=== PATIENT | male | born 1955 ===

== ENCOUNTER 2016-11-28 07:52 | Emergency (ER) | payer OTHER ==
[2016-11-28 07:57] VITALS: BMI 34.4
--- NOTE | 2016-11-28 08:31 | ED PDOC ---
HPI: CCC, URI, Sore Throat Time Seen by Provider: 11/28/16 07:53 Chief Complaint (Nursing): ENT Problem Chief Complaint (Provider): Cough History Per: Patient History/Exam Limitations: no limitations Onset/Duration Of Symptoms: Days (x6) Current Symptoms Are (Timing): Still Present Associated Symptoms: Sore Throat, Sputum Additional Complaint(s): Adonis is a 61 y/o male who presents to the ED complaining of a productive cough with associated sore throat, for the past 6 days. No fever, chest pain, or shortness of breath. Cough is productive of green sputum. PMD: John Alegria Past Medical History Reviewed: Historical Data, Nursing Documentation, Vital Signs Vital Signs: Last Vital Signs Temp 98.2 F 11/28/16 12:51 Pulse 89 11/28/16 12:51 Resp 17 11/28/16 12:51 BP 135/76 11/28/16 12:51 Pulse Ox 96 11/28/16 12:51 - Medical History PMH: Anxiety, Diabetes, HTN Denies: Hepatitis, HIV, Seizures, Sexually Transmitted Disease - Surgical History Surgical History: Appendectomy - Family History Family History: States: Unknown Family Hx - Social History Current smoker - smoking cessation education provided: Yes Alcohol: None Drugs: Denies - Immunization History Hx Tetanus Toxoid Vaccination: No Hx Influenza Vaccination: No Hx Pneumococcal Vaccination: No - Home Medications Home Medications: Ambulatory Orders Medication Instructions Recorded amLODIPine [Norvasc] 5 mg PO DAILY 02/15/16 clonazePAM [clonAZEPAM] 0.5 mg PO TID 02/15/16 Insulin Glargine, Recombina 40 unit SC BID #20 ml 02/26/16 [Lantus] busPIRone [Buspar] 5 mg PO BID #20 tab 02/26/16 Insulin Aspart [Novolog] 10 unit SC BID #1 bottle 03/21/16 Insulin Glargine, Recombina 40 unit SQ Q12 #1 bottle 03/21/16 [Lantus] Lancets 1 each MC TID PRN #90 each 03/21/16 Syring-Needl,Disp,Insul,0.3 ml 1 each MC TID #100 disp.syrin 03/21/16 [Advocate Syringes] amLODIPine [Norvasc] 5 mg PO DAILY #30 tab 03/21/16 levoFLOXacin [Levaquin] 750 mg PO DAILY #5 tab 11/28/16 - Allergies Allergies/Adverse Reactions: Allergies Allergy/AdvReac Type Severity Reaction Status Date / Time No Known Allergies Allergy Verified 02/26/16 19:11 Review of Systems ROS Statement: Except As Marked, All Systems Reviewed And Found Negative Constitutional: Negative for: Fever ENT: Positive for: Throat Pain Cardiovascular: Negative for: Chest Pain Respiratory: Positive for: Cough, Sputum. Negative for: Shortness of Breath Physical Exam - Reviewed Nursing Documentation Reviewed: Yes Vital Signs Reviewed: Yes - Physical Exam Appears: Positive for: Non-toxic, No Acute Distress Head Exam: Positive for: ATRAUMATIC, NORMAL INSPECTION, NORMOCEPHALIC Skin: Positive for: Normal Color, Warm, Dry Eye Exam: Positive for: EOMI, Normal appearance, PERRL ENT: Positive for: Pharynx Is (clear), Other (Uvula midline). Negative for: Tonsillar Exudate Neck: Positive for: Normal, Painless ROM, Supple Cardiovascular/Chest: Positive for: Regular Rate, Rhythm. Negative for: Murmur Respiratory: Positive for: Normal Breath Sounds. Negative for: Accessory Muscle Use, Respiratory Distress Gastrointestinal/Abdominal: Positive for: Normal Exam, Soft. Negative for: Tenderness Extremity: Positive for: Normal ROM. Negative for: Pedal Edema, Deformity Neurologic/Psych: Positive for: Alert, Oriented, Other (Speaking full sentences ) - Laboratory Results Result Diagrams: 11/28/16 09:00 11/28/16 09:00 - ECG O2 Sat by Pulse Oximetry: 97 (RA) Pulse Ox Interpretation: Normal Medical Decision Making Medical Decision Making: Time: 08:22 Initial Plan: --Accucheck --Chest x-ray Finger stick is 341. Time: 08:31 --CBC w/ differentials --CMP --Urinalysis --Urine dipstick --EKG --VBG shock panel --Started on sodium chloride IV 1000 ml at 1000 mls/hr Time: 9:14 Chest x-ray: FINDINGS: LUNGS: There is mild patchy subtle alveolar density seen in the left lower lobe. Small pneumonia is not excluded. Minimal volume loss is seen at the right lung base. No other infiltrates are seen. Trachea is midline. PLEURA: No significant pleural effusion identified. No pneumothorax apparent. CARDIOVASCULAR: Normal. OSSEOUS STRUCTURES: No significant abnormalities. VISUALIZED UPPER ABDOMEN: Normal. OTHER FINDINGS: None. IMPRESSION: Minor patchy infiltrate at the left lung base suspicious for small pneumonia versus mild subsegmental atelectasis. Time: 9:59 --Given 6 units Insulin IV Time: 10:07 --Started IV Zithromax and Rocephin Time: 10:33 --Added blood culture --Patient given Motrin, 600 mg PO Time: 11:39 Clinical Impression: Pneumonia, hyperglycemia Upon provider reevaluation patient is medically stable, and requires no further treatment in the ED at this time. Patient will be discharged with Rx for Levaquin. Counseling was provided and all questions were answered regarding diagnosis and need for follow up with PMD in 2 days. There is agreement to discharge plan. Return if symptoms persist or worsen. Scribe Attestation: Documented by Stephany Levin, acting as a scribe for Mini Villar MD Provider Scribe Attestation: All medical record entries made by the Scribe were at my direction and personally dictated by me. I have reviewed the chart and agree that the record accurately reflects my personal performance of the history, physical exam, medical decision making, and the department course for this patient. I have also personally directed, reviewed, and agree with the discharge instructions and disposition. Disposition - Clinical Impression Clinical Impression: Pneumonia, Hyperglycemia - Patient ED Disposition Is Patient to be Admitted: No Counseled Patient/Family Regarding: Studies Performed, Diagnosis, Need For Followup, Rx Given - Disposition Disposition: Routine/Home Disposition Time: 11:39 Condition: STABLE Additional Instructions: FOLLOW-UP WITH PMD WITHIN 2 DAYS FOR REEVALUATION. Prescriptions: levoFLOXacin [Levaquin] 750 mg PO DAILY #5 tab Instructions: Pneumonia (ED), Diabetic Hyperglycemia (ED) Forms: [employer] (Haitian)
[2016-11-28] MEDS ORDERED: Sodium Chloride 0.9% 1,000 ML IV STA (08:32)
[2016-11-28 09:08] LABS: VENOUS BLOOD GAS BASE EXCESS 2.4 mmol/L (0.0-2.0); VENOUS BLOOD GAS PCO2 48 mmHg (40-60); VENOUS BLOOD PH 7.38 (7.32-7.43)
--- NOTE | 2016-11-28 09:16 | RAD ---
HISTORY: Cough COMPARISON: No prior. TECHNIQUE: Chest PA and lateral FINDINGS: LUNGS: There is mild patchy subtle alveolar density seen in the left lower lobe. Small pneumonia is not excluded. Minimal volume loss is seen at the right lung base. No other infiltrates are seen. Trachea is midline. PLEURA: No significant pleural effusion identified. No pneumothorax apparent. CARDIOVASCULAR: Normal. OSSEOUS STRUCTURES: No significant abnormalities. VISUALIZED UPPER ABDOMEN: Normal. OTHER FINDINGS: None. IMPRESSION: Minor patchy infiltrate at the left lung base suspicious for small pneumonia versus mild subsegmental atelectasis.
[2016-11-28 09:49] LABS: BASO % 0.3 % (0.0-2.0); EOS # 0.2 K/uL (0.0-0.7); EOS % 2.3 % (0.0-4.0); HEMATOCRIT 40.4 % (35.0-51.0); LYMPH # 1.4 K/uL (1.0-4.3); LYMPH % 15.4 % (20.0-40.0); MEAN CELL VOLUME 89.2 fl (80.0-94.0); MEAN CORPUSCULAR HEMOGLOBIN 30.1 pg (27.0-31.0); MEAN CORPUSCULAR HGB CONC 33.7 g/dL (33.0-37.0); MEAN PLATELET VOLUME 8.2 fl (7.2-11.7); MONO # 0.7 K/uL (0.0-0.8); MONO % 7.7 % (0.0-10.0); NEUT # 6.9 K/uL (1.8-7.0); NEUT % 74.3 % (50.0-75.0); NRBC % 0.1 % (0.0-0.0); RED CELL DISTRIBUTION WIDTH 13.8 % (11.5-14.5); WHITE BLOOD COUNT 9.2 K/uL (4.8-10.8)
[2016-11-28 09:53] LABS: RBC URINE 2 /hpf (0-3); URINE BILIRUBIN NEGATIVE (NEGATIVE); URINE BLOOD NEGATIVE (NEGATIVE); URINE COLOR YELLOW (YELLOW); URINE GLUCOSE (UA) >=500 mg/dL (Normal); URINE KETONE TRACE mg/dL (NEGATIVE); URINE LEUKOCYTE ESTERASE NEG Leu/uL (Negative); URINE PROTEIN NEGATIVE (NEGATIVE); URINE UROBILINOGEN 0.2-1.0 mg/dL (0.2-1.0); WBC URINE < 1 /hpf (0-5)
[2016-11-28 09:54] LABS: ALB/GLOB RATIO 1.4 (1.0-2.1); ALKALINE PHOSPHATASE 86 U/L (38-126); ALT/SGPT 29 U/L (21-72); AST/SGOT 25 U/L (17-59); BILIRUBIN,TOTAL 0.3 mg/dl (0.2-1.3); BLOOD UREA NITROGEN 22 mg/dl (9-20); CARBON DIOXIDE 25 mmol/L (22-30); CHLORIDE 102 mmol/L (98-107); GFR AFRICAN-AMERICAN > 60; GLUCOSE,RANDOM 335 mg/dL (75-110); POTASSIUM 4.7 MMOL/L (3.6-5.0); SODIUM 138 mmol/l (132-148); TOTAL PROTEIN 6.4 G/DL (6.3-8.2)
[2016-11-28] MEDS ORDERED: Insulin Regular 100 units/ml IV STA (09:59)
[2016-11-28] MEDS ORDERED: Azithromycin 500 MG in Sodium Chloride 0.9% 250 ML IVPB STA (10:06)
[2016-11-28] MEDS ORDERED: cefTRIAXone (Rocephin) 1 gm Inj ONE (10:16)
[2016-11-28 12:53] VITALS: BP 135/76; PULSE 89; RESP 17; TEMP 98.2
[2016-11-28 15:15] VITALS: O2SAT 97
--- NOTE | 2016-11-29 10:46 | CARD ---
APPROVED REPORT EKG Measurement Heart [id number] <Conclusion> Normal sinus rhythm Normal ECG
== END 2016-11-28 12:53 | disposition home or self-care (01) ==
LOC: H.ER 07:52
DX: J10.1 Influenza due to other identified influenza virus with other respiratory manifestations (principal); E11.65 Type 2 diabetes mellitus with hyperglycemia
CPT/HCPCS: 71020; 80053; 81003; 82803; 82948; 85025; 87040; 93005; 96365; 99283; J0456; J0696; J7040; J7050

== ENCOUNTER 2016-12-10 04:50 | Emergency (ER) | payer OTHER ==
[2016-12-10 04:51] VITALS: BMI 34.4
[2016-12-10 05:05] VITALS: BP 124/70; PULSE 94; RESP 16; TEMP 98.9; O2SAT 98
[2016-12-10] MEDS ORDERED: Albuterol-Ipratrop 3 mg / 0.5 (3 ml) UD IH STA (05:12)
--- NOTE | 2016-12-10 05:15 | ED PDOC ---
HPI: CCC, URI, Sore Throat Time Seen by Provider: 12/10/16 05:05 Chief Complaint (Nursing): Headache Chief Complaint (Provider): cold symptoms History Per: Patient History/Exam Limitations: no limitations Onset/Duration Of Symptoms: Days (8 weeks), Waxing/Waning Current Symptoms Are (Timing): Still Present Location Of Pain: Throat, Sinus/es Associated Symptoms: Sore Throat, Cough, Sinus Drainage, Nasal Congestion Additional History Per: Patient Additional Complaint(s): 61 y/o male history of diabetes, hypertension, anxiety presents with cold- symptoms x 8 weeks. Patient notes sinus headache/facial pressure (worse when leaning forward), nasal congestion, sore throat, and cough; states he was seen here for same 2 weeks ago and prescribed antibiotics but did not get better. Denies fever, dizziness, extremity numbness/weakness, chest pain, shortness of breath, palpitations, vomiting/diarrhea, recent travel, sick contacts. Past Medical History Reviewed: Historical Data, Nursing Documentation, Vital Signs Vital Signs: Last Vital Signs Temp 98.9 F 12/10/16 05:03 Pulse 94 H 12/10/16 05:03 Resp 16 12/10/16 05:03 BP 124/70 12/10/16 05:03 Pulse Ox 98 12/10/16 05:19 - Medical History PMH: Anxiety, Diabetes, HTN Denies: Hepatitis, HIV, Seizures, Sexually Transmitted Disease - Surgical History Surgical History: Appendectomy - Family History Family History: States: Unknown Family Hx - Immunization History Hx Tetanus Toxoid Vaccination: No Hx Influenza Vaccination: No Hx Pneumococcal Vaccination: No - Home Medications Home Medications: Ambulatory Orders Medication Instructions Recorded amLODIPine [Norvasc] 5 mg PO DAILY 02/15/16 clonazePAM [clonAZEPAM] 0.5 mg PO TID 02/15/16 Insulin Glargine, Recombina 40 unit SC BID #20 ml 02/26/16 [Lantus] busPIRone [Buspar] 5 mg PO BID #20 tab 02/26/16 Insulin Aspart [Novolog] 10 unit SC BID #1 bottle 03/21/16 Insulin Glargine, Recombina 40 unit SQ Q12 #1 bottle 03/21/16 [Lantus] Lancets 1 each MC TID PRN #90 each 03/21/16 Syring-Needl,Disp,Insul,0.3 ml 1 each MC TID #100 disp.syrin 03/21/16 [Advocate Syringes] amLODIPine [Norvasc] 5 mg PO DAILY #30 tab 03/21/16 levoFLOXacin [Levaquin] 750 mg PO DAILY #5 tab 11/28/16 Albuterol HFA [Ventolin HFA 90 1 puff IH Q4 PRN #1 inh 12/10/16 mcg/actuation (8 g)] Amoxicillin/Clavulanate [Augmentin 1 tab PO Q12 #14 tab 12/10/16 875 MG-125 MG] Fluticasone Nasal [Flonase] 1 actuation NS BID #1 bottle 12/10/16 predniSONE [Prednisone] 60 mg PO DAILY #12 tab 12/10/16 - Allergies Allergies/Adverse Reactions: Allergies Allergy/AdvReac Type Severity Reaction Status Date / Time No Known Allergies Allergy Verified 12/10/16 05:03 Review of Systems ROS Statement: Except As Marked, All Systems Reviewed And Found Negative ENT: Positive for: Nose Congestion, Throat Pain Physical Exam - Reviewed Nursing Documentation Reviewed: Yes Vital Signs Reviewed: Yes - Physical Exam Appears: Positive for: Well, Non-toxic, No Acute Distress Head Exam: Positive for: ATRAUMATIC, NORMAL INSPECTION, NORMOCEPHALIC Skin: Positive for: Normal Color Eye Exam: Positive for: Normal appearance ENT: Positive for: Sinus Pain/Drainage (bilateral ethmoid, maxillary), Nasal Congestion, Pharyngeal Erythema. Negative for: Tonsillar Exudate, Tonsillar Swelling Cardiovascular/Chest: Positive for: Regular Rate, Rhythm Respiratory: Positive for: Rhonchi, Wheezing Gastrointestinal/Abdominal: Positive for: Normal Exam Back: Positive for: Normal Inspection Extremity: Positive for: Normal ROM Neurologic/Psych: Positive for: Alert, Oriented - ECG O2 Sat by Pulse Oximetry: 98 - Progress ED Course And Treament: strep, flu, chest xray, duoneb EXAM: XR Chest, 2 Views CLINICAL HISTORY: 61 years old, male; Signs and symptoms; Cough; Symptoms not specified TECHNIQUE: Frontal and lateral views of the chest. COMPARISON: CR - CHEST TWO VIEWS (PA/LAT) 2016-11-28 08:47 FINDINGS: Lungs: Mild patchy opacity again seen at the left base on the frontal image. Unclear if this represents prominent fat pad versus atelectasis or early infiltrate. The appearance is little changed from 11/28/2016. Pleural space: Unremarkable. No pneumothorax. Heart: Unremarkable. No cardiomegaly. Mediastinum: Unremarkable. Bones/joints: Unremarkable. IMPRESSION: Mild patchy opacity again seen at the left base on the frontal image. Unclear if this represents prominent fat pad versus atelectasis or early infiltrate. The appearance is little changed from 11/28/2016. Disposition - Clinical Impression Clinical Impression: Sinusitis, Bronchitis - Patient ED Disposition Is Patient to be Admitted: No Counseled Patient/Family Regarding: Studies Performed, Diagnosis, Need For Followup, Rx Given - Disposition Referrals: [facility] [Outside] Disposition: Routine/Home Disposition Time: 05:43 Condition: IMPROVED Prescriptions: Albuterol HFA [Ventolin HFA 90 mcg/actuation (8 g)] 1 puff IH Q4 PRN #1 inh PRN Reason: Wheezing Amoxicillin/Clavulanate [Augmentin 875 MG-125 MG] 1 tab PO Q12 #14 tab Fluticasone Nasal [Flonase] 1 actuation NS BID #1 bottle predniSONE [Prednisone] 60 mg PO DAILY #12 tab Instructions: Acute Bronchitis (ED), Sinusitis (ED) Forms: [employer] (French)
--- NOTE | 2016-12-10 05:35 | RAD ---
EXAM: XR Chest, 2 Views CLINICAL HISTORY: 61 years old, male; Signs and symptoms; Cough; Symptoms not specified TECHNIQUE: Frontal and lateral views of the chest. COMPARISON: CR - CHEST TWO VIEWS (PA/LAT) 2016-11-28 08:47 FINDINGS: Lungs: Mild patchy opacity again seen at the left base on the frontal image. Unclear if this represents prominent fat pad versus atelectasis or early infiltrate. The appearance is little changed from 11/28/2016. Pleural space: Unremarkable. No pneumothorax. Heart: Unremarkable. No cardiomegaly. Mediastinum: Unremarkable. Bones/joints: Unremarkable. IMPRESSION: Mild patchy opacity again seen at the left base on the frontal image. Unclear if this represents prominent fat pad versus atelectasis or early infiltrate. The appearance is little changed from 11/28/2016.
[2016-12-10] MEDS ORDERED: Amoxicillin-Clav 875-125 mg Tab PO STA (05:54)
[2016-12-10] MEDS ORDERED: Amoxicillin-Clav 875-125 mg Tab PO ONE (06:01)
== END 2016-12-10 06:46 | disposition home or self-care (01) ==
LOC: H.ER 04:50
DX: J06.9 Acute upper respiratory infection, unspecified (principal); J01.90 Acute sinusitis, unspecified

== ENCOUNTER 2017-02-04 20:10 | Emergency (ER) | payer OTHER ==
[2017-02-04 20:10] VITALS: BMI 34.4
[2017-02-04 20:19] VITALS: RESP 16; TEMP 98; O2SAT 95
--- NOTE | 2017-02-04 20:58 | ED PDOC ---
HPI: CCC, URI, Sore Throat Time Seen by Provider: 02/04/17 20:24 Chief Complaint (Nursing): ENT Problem Chief Complaint (Provider): headache/body aches History Per: Patient History/Exam Limitations: no limitations Additional Complaint(s): 61yo M in ED for eval of 2-3d of cough with green sputum headache sinus pain with drainage burning sore throat andpleurtic chest pain. Past Medical History Reviewed: Historical Data, Nursing Documentation, Vital Signs Vital Signs: Last Vital Signs Temp 98.0 F 02/04/17 20:18 Pulse 110 H 02/04/17 20:18 Resp 16 02/04/17 20:18 BP 132/87 02/04/17 20:18 Pulse Ox 95 02/04/17 20:18 - Medical History PMH: Anxiety, Diabetes, HTN Denies: Hepatitis, HIV, Seizures, Sexually Transmitted Disease - Surgical History Surgical History: Appendectomy - Family History Family History: States: Unknown Family Hx - Immunization History Hx Tetanus Toxoid Vaccination: No Hx Influenza Vaccination: No Hx Pneumococcal Vaccination: No - Home Medications Home Medications: Ambulatory Orders Medication Instructions Recorded amLODIPine [Norvasc] 5 mg PO DAILY 02/15/16 clonazePAM [clonAZEPAM] 0.5 mg PO TID 02/15/16 Insulin Glargine, Recombina 40 unit SC BID #20 ml 02/26/16 [Lantus] busPIRone [Buspar] 5 mg PO BID #20 tab 02/26/16 Insulin Aspart [Novolog] 10 unit SC BID #1 bottle 03/21/16 Insulin Glargine, Recombina 40 unit SQ Q12 #1 bottle 03/21/16 [Lantus] Lancets 1 each MC TID PRN #90 each 03/21/16 Syring-Needl,Disp,Insul,0.3 ml 1 each MC TID #100 disp.syrin 03/21/16 [Advocate Syringes] amLODIPine [Norvasc] 5 mg PO DAILY #30 tab 03/21/16 levoFLOXacin [Levaquin] 750 mg PO DAILY #5 tab 11/28/16 Albuterol HFA [Ventolin HFA 90 1 puff IH Q4 PRN #1 inh 12/10/16 mcg/actuation (8 g)] Amoxicillin/Clavulanate [Augmentin 1 tab PO Q12 #19 tab 12/10/16 875 MG-125 MG] Fluticasone Nasal [Flonase] 1 actuation NS BID #1 bottle 12/10/16 predniSONE [Prednisone] 60 mg PO DAILY #12 tab 12/10/16 Amoxicillin [Amoxil 500 mg Cap] 500 mg PO BID #14 cap 02/04/17 Budesonide/Formoterol Fumarate 1 - 2 gm IH BID #10.2 hfa.aer.ad 02/04/17 [Symbicort 160-4.5 Mcg Inhaler] Dextromethorphan Polistirex 30 mg PO BID #100 nicolle.er.12h 02/04/17 [Delsym] - Allergies Allergies/Adverse Reactions: Allergies Allergy/AdvReac Type Severity Reaction Status Date / Time No Known Allergies Allergy Verified 12/10/16 05:03 Curb-65 Severity Score - CURB-65 Severity Score Confusion: No Bun >19mg/dl (>7mmol/L): No Respiratory Rate greater than/equal to 30: No Systolic BP <90 or Diastolic BP less than/equal 60mmHg: No Age >64: No Curb-65 Score: 0 Percentage 30-day mortality: 0.6% Review of Systems ROS Statement: Except As Marked, All Systems Reviewed And Found Negative Constitutional: Positive for: Fever, Chills Respiratory: Positive for: Cough, Sputum Gastrointestinal: Negative for: Nausea, Vomiting, Abdominal Pain Physical Exam - Reviewed Nursing Documentation Reviewed: Yes Vital Signs Reviewed: Yes - Physical Exam Appears: Positive for: Well, Non-toxic, No Acute Distress Skin: Positive for: Normal Color, Warm, DRY Eye Exam: Positive for: Normal appearance ENT: Positive for: Normal ENT Inspection Cardiovascular/Chest: Positive for: Regular Rate, Rhythm Respiratory: Positive for: CNT, Normal Breath Sounds Neurologic/Psych: Positive for: Alert, Oriented - ECG O2 Sat by Pulse Oximetry: 95 - Radiology X-Ray: Interpreted by Me X-Ray Interpretation: Infiltrates Medical Decision Making Medical Decision Making: PT will be d/c with amoxicillin and given delsym for cough and symbicort. pt looks well and ready for d.c Disposition - Clinical Impression Clinical Impression: Pneumonia - Patient ED Disposition Is Patient to be Admitted: No Counseled Patient/Family Regarding: Studies Performed, Diagnosis, Need For Followup, Rx Given - Disposition Referrals: [facility] [Outside] Disposition: Routine/Home Disposition Time: 21:01 Condition: STABLE Prescriptions: Amoxicillin [Amoxil 500 mg Cap] 500 mg PO BID #14 cap Budesonide/Formoterol Fumarate [Symbicort 160-4.5 Mcg Inhaler] 1 - 2 gm IH BID # 10.2 hfa.aer.ad Dextromethorphan Polistirex [Delsym] 30 mg PO BID #100 nicolle.er.12h Instructions: Bacterial Pneumonia (DC)
[2017-02-04 21:07] VITALS: BP 142/81; PULSE 84
[2017-02-04] MEDS ORDERED: Albuterol-Ipratrop 3 mg / 0.5 (3 ml) UD INH STA (21:07)
[2017-02-04] MEDS ORDERED: Albuterol-Ipratrop 3 mg / 0.5 (3 ml) UD ONE (21:10)
--- NOTE | 2017-02-05 09:47 | RAD ---
HISTORY: cough COMPARISON: Chest radiograph dated 12/10/2016 TECHNIQUE: Chest PA and lateral FINDINGS: LUNGS: Left basilar atelectasis. PLEURA: No significant pleural effusion identified. No pneumothorax apparent. CARDIOVASCULAR: Cardiomediastinal silhouette stably prominent. OSSEOUS STRUCTURES: Unchanged. VISUALIZED UPPER ABDOMEN: Normal. OTHER FINDINGS: None. IMPRESSION: Left basilar atelectasis.
== END 2017-02-04 21:58 | disposition home or self-care (01) ==
LOC: H.ER 20:10
DX: J18.9 Pneumonia, unspecified organism (principal); E11.9 Type 2 diabetes mellitus without complications; F41.9 Anxiety disorder, unspecified; I10 Essential (primary) hypertension; Z79.4 Long term (current) use of insulin

== ENCOUNTER 2017-02-06 17:59 | Observation (INO) | payer OTHER ==
[2017-02-06 17:59] VITALS: BMI 34.4
[2017-02-06] MEDS ORDERED: Albuterol-Ipratrop 3 mg / 0.5 (3 ml) UD INH STA (18:43)
[2017-02-06 18:47] LABS: BASO % 0.3 % (0.0-2.0); EOS # 0.1 K/uL (0.0-0.7); EOS % 1.3 % (0.0-4.0); HEMATOCRIT 40.3 % (35.0-51.0); LYMPH # 1.1 K/uL (1.0-4.3); LYMPH % 12.5 % (20.0-40.0); MEAN CELL VOLUME 87.3 fl (80.0-94.0); MEAN CORPUSCULAR HEMOGLOBIN 29.5 pg (27.0-31.0); MEAN CORPUSCULAR HGB CONC 33.8 g/dL (33.0-37.0); MEAN PLATELET VOLUME 7.6 fl (7.2-11.7); MONO # 0.7 K/uL (0.0-0.8); MONO % 8.5 % (0.0-10.0); NEUT # 6.7 K/uL (1.8-7.0); NEUT % 77.4 % (50.0-75.0); RED CELL DISTRIBUTION WIDTH 13.4 % (11.5-14.5); WHITE BLOOD COUNT 8.7 K/uL (4.8-10.8)
--- NOTE | 2017-02-06 18:52 | ED PDOC ---
HPI: Chest Pain Time Seen by Provider: 02/06/17 18:23 Chief Complaint (Nursing): Chest Pain Chief Complaint (Provider): cough History Per: Patient History/Exam Limitations: no limitations Associated Symptoms: denies: Nausea, Dyspnea, Diaphoresis, Syncope Additional Complaint(s): 61yo M with DM HTN in ED for eval for eval of persistent cough, pleutric chest pain and difficulty breathing. pt was seen 02/04/17 showed ? infiltrates on xray d/c on abx, but states coughing has been persistent without fever but notes sputum production difficulty breathing. today noted left sided chest pain without radiation, diaphoresis or jaw pain. Pt also states he was dizzy and felt as though he would pass out on two occasions prompting his ED visit. chest pain lasts less than 1 min, felt like heavy pain. - Risk Factors TAD Risk Factors: Pos: Hypertension Past Medical History Reviewed: Historical Data, Nursing Documentation, Vital Signs Vital Signs: Last Vital Signs Temp 98.1 F 02/06/17 18:03 Pulse 91 H 02/06/17 18:18 Resp 16 02/06/17 18:03 BP 128/79 02/06/17 18:18 Pulse Ox 100 02/06/17 18:54 - Medical History PMH: Anxiety, Diabetes, HTN Denies: Hepatitis, HIV, Seizures, Sexually Transmitted Disease - Surgical History Surgical History: Appendectomy - Family History Family History: States: Unknown Family Hx - Immunization History Hx Tetanus Toxoid Vaccination: No Hx Influenza Vaccination: No Hx Pneumococcal Vaccination: No - Home Medications Home Medications: Ambulatory Orders Medication Instructions Recorded amLODIPine [Norvasc] 5 mg PO DAILY 02/15/16 clonazePAM [clonAZEPAM] 0.5 mg PO TID 02/15/16 Insulin Glargine, Recombina 40 unit SC BID #20 ml 02/26/16 [Lantus] busPIRone [Buspar] 5 mg PO BID #20 tab 02/26/16 Insulin Aspart [Novolog] 10 unit SC BID #1 bottle 03/21/16 Insulin Glargine, Recombina 40 unit SQ Q12 #1 bottle 03/21/16 [Lantus] Lancets 1 each MC TID PRN #90 each 03/21/16 Syring-Needl,Disp,Insul,0.3 ml 1 each MC TID #100 disp.syrin 03/21/16 [[facility]ocate Syringes] amLODIPine [Norvasc] 5 mg PO DAILY #30 tab 03/21/16 levoFLOXacin [Levaquin] 750 mg PO DAILY #5 tab 11/28/16 Albuterol HFA [Ventolin HFA 90 1 puff IH Q4 PRN #1 inh 12/10/16 mcg/actuation (8 g)] Amoxicillin/Clavulanate [Augmentin 1 tab PO Q12 #19 tab 12/10/16 875 MG-125 MG] Fluticasone Nasal [Flonase] 1 actuation NS BID #1 bottle 12/10/16 predniSONE [Prednisone] 60 mg PO DAILY #12 tab 12/10/16 Amoxicillin [Amoxil 500 mg Cap] 500 mg PO BID #14 cap 02/04/17 Budesonide/Formoterol Fumarate 1 - 2 gm IH BID #10.2 hfa.aer.ad 02/04/17 [Symbicort 160-4.5 Mcg Inhaler] Dextromethorphan Polistirex 30 mg PO BID #100 nicolle.er.12h 02/04/17 [Delsym] - Allergies Allergies/Adverse Reactions: Allergies Allergy/AdvReac Type Severity Reaction Status Date / Time No Known Allergies Allergy Verified 02/06/17 18:03 DEVORAH Risk Score for UA/NSTEMI - DVEORAH Risk Score Age > 64: NO 3 or more CAD Risk Factors: YES Known CAD (Stenosis greater than 50%): NO Aspirin use in past 7 days: NO Severe Angina: NO EKG ST changes greater than 0.5mm: NO Positive Cardiac Marker: NO DEVORAH Score: 1 Risk %: 5% Curb-65 Severity Score - CURB-65 Severity Score Confusion: No Bun >19mg/dl (>7mmol/L): No Respiratory Rate greater than/equal to 30: No Systolic BP <90 or Diastolic BP less than/equal 60mmHg: No Age >64: No Curb-65 Score: 0 Percentage 30-day mortality: 0.6% Wells Criteria for PE - Wells Criteria for Pulmonary Embolism Clinical Signs and Symptoms of DVT: No P.E is #1 Diagnosis, or Equally Likely: No Heart Rate >100: No Immobilization at least 3 days;Surgery previous 4 weeks: No Previous, objectively diagnosed PE or DVT: No Hemoptysis: No Malignancy w/treatment within 6 months, or palliative: No Total Score: 0 Review of Systems ROS Statement: Except As Marked, All Systems Reviewed And Found Negative Constitutional: Negative for: Fever, Chills Cardiovascular: Positive for: Chest Pain, Light Headedness. Negative for: Orthopnea, Paroxysmal Noc. Dyspnea Respiratory: Positive for: Cough, Shortness of Breath, Sputum Physical Exam - Reviewed Nursing Documentation Reviewed: Yes Vital Signs Reviewed: Yes - Physical Exam Appears: Positive for: Well, Non-toxic, No Acute Distress Skin: Positive for: Normal Color, Warm, DRY ENT: Positive for: Normal ENT Inspection Neck: Positive for: Normal, Painless ROM Cardiovascular/Chest: Positive for: Regular Rate, Rhythm Respiratory: Positive for: Wheezing (mild noted upper lung feild and right lower lung ). Negative for: Accessory Muscle Use, Crackles, Rales, Rhonchi, Respiratory Distress Gastrointestinal/Abdominal: Positive for: Normal Exam, Bowel Sounds, Soft Neurologic/Psych: Positive for: Alert, Oriented - Laboratory Results Result Diagrams: 02/06/17 18:43 02/06/17 18:43 - ECG ECG Rhythm: Positive for: Normal QRS, Normal ST Segment, Sinus Rhythm O2 Sat by Pulse Oximetry: 100 - Radiology X-Ray: Interpreted by Me (unchanged from last chest xray) - Progress ED Course And Treament: Impression: chest pain, resp. -orders: cbc/cmp/bnp/chest xray/trop/ekg -meds: duo neb and reassess awake overnight monitor Orders Category Date Time Status BNP [B-TYPE NATRIURETIC PEPTIDE] Stat Chem 02/06/17 19:14 Completed COMP METABOLIC PANEL Stat Chem 02/06/17 18:43 Completed TROPONIN I Stat Chem 02/06/17 18:43 Completed CHEST TWO VIEWS (PA/LAT) [RAD] Stat Exams 02/06/17 18:21 Taken CBC (WITH DIFFERENTIAL) Stat DORI 02/06/17 18:43 Completed Albuterol/Ipratropium [Duoneb 3 mg/0.5 mg (3 ml) UD] Med 02/06/17 18:43 Discontinued 3 ml INH [id number] STA Albuterol/Ipratropium [Duoneb 3 mg/0.5 mg (3 ml) UD] Med 02/06/17 19:33 Ordered 3 ml INH RQ6 PRN Aspirin [Aspirin Chewable] Med 02/06/17 19:33 Stat 324 mg PO STAT STA Azithromycin [Zithromax] Med 02/07/17 09:00 Ordered 250 mg PO DAILY Budesonide/Formoterol Fumarate [Symbicort 160-4.5 Mcg Med 02/07/17 09:00 Ordered Inhaler] 1 - 2 puff IH BID Fluticasone Propionate [Flonase] Med 02/07/17 09:00 Ordered DOSE spr COLTON BID Insulin Aspart [Novolog] Med 02/07/17 09:00 Ordered 10 unit SC BID amLODIPine [Norvasc] Med 02/07/17 09:00 Ordered 5 mg PO DAILY BLOOD CULTURE Stat Micro 02/06/17 19:14 Received admit [Admit to Hospital] Routine PT Status 02/06/17 19:31 Ordered Accucheck [Glucose, Blood, POC] ACHS Pt Care 02/06/17 19:37 Active Finger Stick [Glucose, Blood, POC] STAT Pt Care 02/06/17 18:22 Active PEAK FLOW PRE/POST TX .PRE/POST TREATMENT Resp 02/06/17 18:43 Ordered PEAK FLOW PRE/POST TX .PRE/POST TREATMENT Resp 02/06/17 19:33 Ordered Medical Decision Making Medical Decision Making: pt with risk factors ie DM and HTN will be admitted for chest pain observation for repeat labs and monitoring. admitted under HospitalistJuan C MD covering Medicine operations support professionals. Disposition - Clinical Impression Clinical Impression: Chest pain - Patient ED Disposition Is Patient to be Admitted: Yes - Disposition Disposition Time: 19:39 Condition: STABLE Forms: [facility] (Slovenian) - Pt Status Changed To: Hospital Disposition Of: Observation
[2017-02-06 19:00] LABS: ALB/GLOB RATIO 1.3 (1.0-2.1); ALKALINE PHOSPHATASE 85 U/L (38-126); ALT/SGPT 35 U/L (21-72); AST/SGOT 17 U/L (17-59); BILIRUBIN,TOTAL 0.2 mg/dl (0.2-1.3); BLOOD UREA NITROGEN 12 mg/dl (9-20); CALCIUM 8.8 mg/dL (8.4-10.2); CARBON DIOXIDE 25 mmol/L (22-30); CHLORIDE 104 mmol/L (98-107); GFR AFRICAN-AMERICAN > 60; GLUCOSE,RANDOM 167 mg/dL (75-110); POTASSIUM 3.4 MMOL/L (3.6-5.0); SODIUM 136 mmol/l (132-148); TOTAL PROTEIN 6.7 G/DL (6.3-8.2)
[2017-02-06] MEDS ORDERED: Albuterol-Ipratrop 3 mg / 0.5 (3 ml) UD INH PRN (19:33)
--- NOTE | 2017-02-06 19:45 | CP.PCM.HP ---
History of Present Illness - History of Present Illness History of Present Illness: CC: CP HPI: 61 y/o undomiciled male with DM2 and HTN who comes in with c/o CP. Patient was previously here several days ago and diagnosed with CAP and discharged on azithromycin. He comes back today with persistent cough, SOB, CP, and presyncope. He states that CP is left sided, but with no radiation, diaphoresis , or SOB. CP felt like heaviness, and lasted a few minutes. He also felt like he was going to pass out 2x while coughing. ROS: 14 systems reviewed, negative other than HPI MHx: HTN, HLD SHx: appx Allergies: NKDA Medications: As per med rec, ?compliance Family Hx: Reviewed, no relevant findings Social Hx: Undomiciled, rare tobacco, no EtOH Surrogate: Pending Present on Admission - Present on Admission Any Indicators Present on Admission: No Past Patient History - Infectious Disease Hx of Infectious Diseases: None - Past Social History Smoking Status: Former Smoker - CARDIAC Hx Hypertension: Yes - PULMONARY Hx Tuberculosis: No - NEUROLOGICAL Hx Seizures: No - ENDOCRINE/METABOLIC Hx Diabetes Mellitus Type 1: Yes - HEMATOLOGICAL/ONCOLOGICAL Hx Human Immunodeficiency Virus (HIV): No - GENITOURINARY/GYNECOLOGICAL Hx Sexually Transmitted Disorders: No - PSYCHIATRIC Hx Anxiety: Yes - SURGICAL HISTORY Hx Appendectomy: Yes - ANESTHESIA Hx Anesthesia: Yes Hx Anesthesia Reactions: No Hx Malignant Hyperthermia: No Meds Allergies/Adverse Reactions: Allergies Allergy/AdvReac Type Severity Reaction Status Date / Time No Known Allergies Allergy Verified 02/06/17 18:03 Physical Exam - Constitutional Appears: No Acute Distress - Head Exam Head Exam: ATRAUMATIC, NORMOCEPHALIC - Eye Exam Eye Exam: EOMI, PERRL - ENT Exam ENT Exam: Mucous Membranes Moist - Neck Exam Neck exam: Positive for: Full Rom - Respiratory Exam Respiratory Exam: Rhonchi, Wheezes, NORMAL BREATHING PATTERN - Cardiovascular Exam Cardiovascular Exam: REGULAR RHYTHM, +S1, +S2 - GI/Abdominal Exam GI & Abdominal Exam: Normal Bowel Sounds, Soft - Extremities Exam Extremities exam: Positive for: normal inspection - Neurological Exam Neurological exam: Alert, CN II-XII Intact, Oriented x3 - Psychiatric Exam Psychiatric exam: Normal Affect, Normal Mood - Skin Skin Exam: Dry, Warm Results - Vital Signs Recent Vital Signs: Last Vital Signs Temp 98.1 F 02/06/17 18:03 Pulse 91 H 02/06/17 18:18 Resp 16 02/06/17 18:03 BP 128/79 02/06/17 18:18 Pulse Ox 100 02/06/17 19:39 - Labs Result Diagrams: 02/06/17 18:43 02/06/17 18:43 Labs: Laboratory Results - last 24 hr 02/06/17 02/06/17 02/06/17 18:40 18:43 18:43 WBC 8.7 RBC 4.62 Hgb 13.6 Hct 40.3 MCV 87.3 MCH 29.5 MCHC 33.8 RDW 13.4 Plt Count 229 MPV 7.6 Neut % (Auto) 77.4 H Lymph % (Auto) 12.5 L [place] % (Auto) 8.5 Eos % (Auto) 1.3 Baso % (Auto) 0.3 Neut # 6.7 Lymph # 1.1 [place] # 0.7 Eos # 0.1 Baso # 0.0 Sodium 136 Potassium 3.4 L Chloride 104 Carbon Dioxide 25 Anion Gap 10 BUN 12 Creatinine 0.7 L Est GFR ( Amer) > 60 Est GFR (Non-Af Amer) > 60 POC Glucose (mg/dL) 153 H Random Glucose 167 H Calcium 8.8 Total Bilirubin 0.2 AST 17 D ALT 35 Alkaline Phosphatase 85 Troponin I < 0.0120 NT-Pro-B Natriuret Pep Total Protein 6.7 Albumin 3.7 Globulin 3.0 Albumin/Globulin Ratio 1.3 02/06/17 19:14 WBC RBC Hgb Hct MCV MCH MCHC RDW Plt Count MPV Neut % (Auto) Lymph % (Auto) [place] % (Auto) Eos % (Auto) Baso % (Auto) Neut # Lymph # [place] # Eos # Baso # Sodium Potassium Chloride Carbon Dioxide Anion Gap BUN Creatinine Est GFR ( Amer) Est GFR (Non-Af Amer) POC Glucose (mg/dL) Random Glucose Calcium Total Bilirubin AST ALT Alkaline Phosphatase Troponin I NT-Pro-B Natriuret Pep 109 Total Protein Albumin Globulin Albumin/Globulin Ratio - EKG Data EKG Interpreted by: Myself EKG shows normal: Sinus rhythm Rate: Normal - EKG Data EKG comments: no acute concerning findings - Imaging and Cardiology Chest x-ray Status: Image reviewed by me (? infiltrate on CXR per prior report; unable to visualize singificant opacity) Assessment & Plan (1) Chest pain Assessment and Plan: 61 y/o male with HTN and DM2 who is likely non-compliant with medications in setting of being undomiciled and who comes in with c/o CP. Was diagnosed with a CAP a few days prior and placed on oral abx. 1) Chest pain -Admit tele obs -serial trops -lipid panel -AM EKG -Ordered echo given patient has multiple risk factors -ASA 325 stat, slng PRN for pain 2) CAP -Cont PO azithro for now -PRN nebs 3) DM2 -ACHS accucheck -LA insulin + SSI 4) DVT PPx -- SQ Lovenox Status: Acute (2) CAP (community acquired pneumonia) Status: Acute (3) Diabetes mellitus Status: Acute (4) Hypertension Status: Acute (5) DVT prophylaxis Status: Acute
[2017-02-06] MEDS: Insulin Lispro (humaLOG) 100 Units/ml Inj SC SCH (21:50)
[2017-02-06] MEDS: Fluticasone-Salmeterol 250-50mcg Diskus IH SCH (21:52)
[2017-02-06] MEDS ORDERED: Benzocaine/Menthol (Cepacol) Lozenge PO SCH (22:04)
[2017-02-07] MEDS: Benzocaine/Menthol (Cepacol) Lozenge PO PRN ×4 (03:49→17:54)
[2017-02-07 06:06] LABS: BASO % 0.3 % (0.0-2.0); EOS % 0.2 % (0.0-4.0); HEMATOCRIT 40.7 % (35.0-51.0); LYMPH # 1.3 K/uL (1.0-4.3); LYMPH % 13.3 % (20.0-40.0); MEAN CELL VOLUME 88.3 fl (80.0-94.0); MEAN CORPUSCULAR HEMOGLOBIN 29.4 pg (27.0-31.0); MEAN CORPUSCULAR HGB CONC 33.3 g/dL (33.0-37.0); MEAN PLATELET VOLUME 7.8 fl (7.2-11.7); MONO # 0.9 K/uL (0.0-0.8); MONO % 9.8 % (0.0-10.0); NEUT # 7.3 K/uL (1.8-7.0); NEUT % 76.4 % (50.0-75.0); RED CELL DISTRIBUTION WIDTH 13.5 % (11.5-14.5); WHITE BLOOD COUNT 9.6 K/uL (4.8-10.8)
[2017-02-07 06:15] LABS: BLOOD UREA NITROGEN 11 mg/dl (9-20); CALCIUM 8.7 mg/dL (8.4-10.2); CARBON DIOXIDE 28 mmol/L (22-30); CHLORIDE 100 mmol/L (98-107); CHOLESTEROL 135 mg/dL (0-199); GFR AFRICAN-AMERICAN > 60; GLUCOSE,RANDOM 228 mg/dL (75-110); POTASSIUM 3.9 MMOL/L (3.6-5.0); SODIUM 134 mmol/l (132-148)
[2017-02-07] MEDS: Insulin Lispro (humaLOG) 100 Units/ml Inj SC SCH ×5 (07:10→17:51)
--- NOTE | 2017-02-07 08:57 | RAD ---
HISTORY: cough COMPARISON: Chest radiograph dated 02/04/2017 TECHNIQUE: Chest PA and lateral FINDINGS: LUNGS: Left basilar atelectasis versus prominent epicardial fat pad. PLEURA: No significant pleural effusion identified. No pneumothorax apparent. CARDIOVASCULAR: Cardiomediastinal silhouette stably prominent. OSSEOUS STRUCTURES: Unchanged. VISUALIZED UPPER ABDOMEN: Normal. OTHER FINDINGS: None. IMPRESSION: And left basilar atelectasis versus prominent epicardial fat pad.
[2017-02-07] MEDS ORDERED: Enoxaparin 40 mg Syringe SC SCH (09:00)
[2017-02-07] MEDS ORDERED: Metoprolol Succinate 25 mg XL Tab PO SCH (09:00)
[2017-02-07] MEDS ORDERED: Sodium Chloride 0.9% 1,000 ML IV SCH (11:30)
[2017-02-07] MEDS ORDERED: Albuterol-Ipratrop 3 mg / 0.5 (3 ml) UD INH SCH (12:00)
[2017-02-07] MEDS: Fluticasone-Salmeterol 250-50mcg Diskus IH SCH (12:46)
--- NOTE | 2017-02-07 13:22 | CP.PCM.DIS ---
Provider - Provider Date of Admission: 02/06/17 19:31 Attending physician: Nadiya Irizarry MD Time Spent in preparation of Discharge (in minutes): 30 Diagnosis - Discharge Diagnosis (1) Chest pain Status: Acute (2) Bronchitis Status: Acute Hospital Course - Lab Results Lab Results: Most Recent Lab Values WBC 9.6 K/uL (4.8-10.8) 02/07/17 05:57 RBC 4.61 Mil/uL (4.40-5.90) 02/07/17 05:57 Hgb 13.5 g/dL (12.0-18.0) 02/07/17 05:57 Hct 40.7 % (35.0-51.0) 02/07/17 05:57 MCV 88.3 fl (80.0-94.0) 02/07/17 05:57 MCH 29.4 pg (27.0-31.0) 02/07/17 05:57 MCHC 33.3 g/dL (33.0-37.0) 02/07/17 05:57 RDW 13.5 % (11.5-14.5) 02/07/17 05:57 Plt Count 224 K/uL (130-400) 02/07/17 05:57 MPV 7.8 fl (7.2-11.7) 02/07/17 05:57 Neut % (Auto) 76.4 % (50.0-75.0) H 02/07/17 05:57 Lymph % (Auto) 13.3 % (20.0-40.0) L 02/07/17 05:57 [place] % (Auto) 9.8 % (0.0-10.0) 02/07/17 05:57 Eos % (Auto) 0.2 % (0.0-4.0) 02/07/17 05:57 Baso % (Auto) 0.3 % (0.0-2.0) 02/07/17 05:57 Neut # 7.3 K/uL (1.8-7.0) H 02/07/17 05:57 Lymph # 1.3 K/uL (1.0-4.3) 02/07/17 05:57 [place] # 0.9 K/uL (0.0-0.8) H 02/07/17 05:57 Eos # 0.0 K/uL (0.0-0.7) 02/07/17 05:57 Baso # 0.0 K/uL (0.0-0.2) 02/07/17 05:57 Sodium 134 mmol/l (132-148) 02/07/17 05:57 Potassium 3.9 MMOL/L (3.6-5.0) 02/07/17 05:57 Chloride 100 mmol/L (98-107) 02/07/17 05:57 Carbon Dioxide 28 mmol/L (22-30) 02/07/17 05:57 Anion Gap 10 (10-20) 02/07/17 05:57 BUN 11 mg/dl (9-20) 02/07/17 05:57 Creatinine 0.8 mg/dl (0.8-1.5) 02/07/17 05:57 Est GFR ( Amer) > 60 02/07/17 05:57 Est GFR (Non-Af Amer) > 60 02/07/17 05:57 POC Glucose (mg/dL) 213 mg/dL (65-110) H 02/07/17 11:37 Random Glucose 228 mg/dL (75-110) H 02/07/17 05:57 Calcium 8.7 mg/dL (8.4-10.2) 02/07/17 05:57 Total Bilirubin 0.2 mg/dl (0.2-1.3) 02/06/17 18:43 AST 17 U/L (17-59) D 02/06/17 18:43 ALT 35 U/L (21-72) 02/06/17 18:43 Alkaline Phosphatase 85 U/L (38-126) 02/06/17 18:43 Troponin I 0.0200 ng/mL (0.00-0.120) 02/07/17 12:25 NT-Pro-B Natriuret Pep 109 pg/ml (0-900) 02/06/17 19:14 Total Protein 6.7 G/DL (6.3-8.2) 02/06/17 18:43 Albumin 3.7 g/dL (3.5-5.0) 02/06/17 18:43 Globulin 3.0 gm/dL (2.2-3.9) 02/06/17 18:43 Albumin/Globulin Ratio 1.3 (1.0-2.1) 02/06/17 18:43 Triglycerides 75 mg/DL (0-149) 02/07/17 05:57 Cholesterol 135 mg/dL (0-199) 02/07/17 05:57 LDL Cholesterol Direct 41 mg/dL (0-129) 02/07/17 05:57 HDL Cholesterol 65 MG/DL (30-70) 02/07/17 05:57 Discharge Exam - Head Exam Head Exam: ATRAUMATIC, NORMOCEPHALIC Discharge Plan - Discharge Medications Prescriptions: Albuterol Sulfate [Proair Hfa] 1 inh INH PRN PRN #1 inhaler PRN Reason: SOB amLODIPine [Norvasc] 5 mg PO DAILY #30 tab Atorvastatin Calcium [Lipitor] 80 mg PO DAILY #30 tablet Azithromycin [Zithromax] 250 mg PO DAILY #5 tab DULoxetine [Cymbalta] 20 mg PO DAILY #30 ecc Fluticasone Propionate [Flovent Diskus] 2 puff COLTON BID PRN #60 blst.w.dev PRN Reason: prn for nose Hydroxyzine HCl 25 mg PO BID PRN #60 tablet PRN Reason: Anxiety Insulin Aspart [Novolog Flexpen] 12 units SC TID #30 ml Insulin Glargine,Hum.rec.anlog [Lantus Solostar] 44 units SC BID #30 insuln.pen Lisinopril [Zestril] 20 mg PO DAILY #30 tab Metformin HCl [Glucophage] 1,000 mg PO BID #60 tablet Omeprazole 20 mg PO DAILY #60 tablet.dr - Follow Up Plan Condition: STABLE Disposition: HOME/ ROUTINE Additional Instructions: FOLLOW UP WITH THE [facility]. RETURN TO ER IN ANY EMERGENCY, RETURN, OR WORSENING OF CONDITION. Referrals: [facility] [Provider Group]
[2017-02-07 16:01] VITALS: BP 147/81; PULSE 111; RESP 20; TEMP 97.2; O2SAT 94
[2017-02-07] MEDS ORDERED: Benzocaine/Menthol (Cepacol) Lozenge PO SCH (22:02)
== END 2017-02-07 18:00 | disposition home or self-care (01) ==
LOC: H.ER 17:59 → H.ERHOLD 19:31 → H.TEL 20:42
PROVIDERS: ADMIT Internal Medicine; ATTEND Internal Medicine
DX: R07.89 Other chest pain (principal); J40 Bronchitis, not specified as acute or chronic; I10 Essential (primary) hypertension; F41.9 Anxiety disorder, unspecified; E10.9 Type 1 diabetes mellitus without complications; Z91.14 Patient's other noncompliance with medication regimen; Z79.4 Long term (current) use of insulin; Z87.891 Personal history of nicotine dependence
CPT/HCPCS: 36415; 71020; 80048; 80053; 80061; 82948; 83880; 84484; 85025; 87040; 94640; 99285; G0378; J1650; J7040

== ENCOUNTER 2017-02-08 04:00 | Emergency (ER) | payer OTHER ==
[2017-02-08 04:00] VITALS: BMI 34.4
[2017-02-08 04:32] VITALS: PULSE 76; RESP 18; TEMP 98.2; O2SAT 96
[2017-02-08 04:48] VITALS: BP 118/80
[2017-02-08] MEDS ORDERED: Insulin Regular 100 units/ml SC STA (04:59)
[2017-02-08] MEDS ORDERED: Insulin Regular 100 units/ml ONE (05:12)
--- NOTE | 2017-02-08 05:17 | ED PDOC ---
HPI: General Adult Time Seen by Provider: 02/08/17 04:00 Chief Complaint (Nursing): ENT Problem Chief Complaint (Provider): Sore throat History Per: Patient History/Exam Limitations: no limitations Onset/Duration Of Symptoms: Days (x1) Have you had recent travel within the past 21 days to any of the following countries: [place], [place], [place] or [place]?: No Current Symptoms Are (Timing): Still Present Recently: Seen In ED Additional Complaint(s): Adonis Spence is a 61 year old male, with a past medical history of anxiety, hypertension and diabetes, who presents to the emergency department complaining of sore throat onset for x1 day. Patient states last night he was eating when he vomited, ever since he has been feeling a burning sensation in throat. He also reports having a high blood sugar, patient has been compliant with medications. He denies any fever, chills or other medical complaints. PMD: None provided. Past Medical History Reviewed: Historical Data, Nursing Documentation, Vital Signs Vital Signs: Last Vital Signs Temp 98.2 F 02/08/17 04:29 Pulse 76 02/08/17 04:29 Resp 18 02/08/17 04:29 BP 118/80 02/08/17 04:46 Pulse Ox 96 02/08/17 06:46 - Medical History PMH: Anxiety, Diabetes, HTN Denies: Hepatitis, HIV, Chronic Kidney Disease, Seizures, Sexually Transmitted Disease - Surgical History Surgical History: Appendectomy - Family History Family History: States: Unknown Family Hx - Living Arrangements Living Arrangements: Other (homeless) - Social History Ex-Smoker (has not smoked in the last 12 months): Yes Alcohol: None Drugs: Denies - Immunization History Hx Tetanus Toxoid Vaccination: No Hx Influenza Vaccination: No Hx Pneumococcal Vaccination: No - Home Medications Home Medications: Ambulatory Orders Medication Instructions Recorded Acetaminophen [Athenol] 650 mg PO Q8 PRN 02/06/17 Clonazepam [Klonopin] 0.5 mg PO TID 02/06/17 DiphenhydrAMINE [Benadryl] 50 mg PO DAILY PRN 02/06/17 Ibuprofen [Motrin Tab] 600 mg PO BID PRN 02/06/17 Loratadine [Allergy Relief] 10 mg PO DAILY 02/06/17 Albuterol Sulfate [Proair Hfa] 1 inh INH PRN PRN #1 inhaler 02/07/17 Atorvastatin Calcium [Lipitor] 80 mg PO DAILY #30 tablet 02/07/17 Azithromycin [Zithromax] 250 mg PO DAILY #5 tab 02/07/17 DULoxetine [Cymbalta] 20 mg PO DAILY #30 ecc 02/07/17 Fluticasone Propionate [Flovent 2 puff COLTON BID PRN #60 blst.w.dev 02/07/17 Diskus] Hydroxyzine HCl 25 mg PO BID PRN #60 tablet 02/07/17 Insulin Aspart [Novolog Flexpen] 12 units SC TID #30 ml 02/07/17 Insulin Glargine,Hum.rec.anlog 44 units SC BID #30 insuln.pen 02/07/17 [Lantus Solostar] Lisinopril [Zestril] 20 mg PO DAILY #30 tab 02/07/17 Metformin HCl [Glucophage] 1,000 mg PO BID #60 tablet 02/07/17 Omeprazole 20 mg PO DAILY #60 tablet. 02/07/17 amLODIPine [Norvasc] 5 mg PO DAILY #30 tab 02/07/17 - Allergies Allergies/Adverse Reactions: Allergies Allergy/AdvReac Type Severity Reaction Status Date / Time No Known Allergies Allergy Verified 02/06/17 18:03 Review of Systems ROS Statement: Except As Marked, All Systems Reviewed And Found Negative Constitutional: Negative for: Fever, Chills ENT: Positive for: Throat Pain Physical Exam - Reviewed Nursing Documentation Reviewed: Yes Vital Signs Reviewed: Yes - Physical Exam Head Exam: Positive for: ATRAUMATIC, NORMAL INSPECTION Skin: Positive for: Normal Color, Warm, Dry Eye Exam: Positive for: Normal appearance, EOMI ENT: Positive for: Pharyngeal Erythema (mild, swollen) Neck: Positive for: Normal, Painless ROM, Supple Cardiovascular/Chest: Positive for: Regular Rate, Rhythm. Negative for: Murmur Respiratory: Positive for: Normal Breath Sounds. Negative for: Respiratory Distress Gastrointestinal/Abdominal: Positive for: Normal Exam, Soft. Negative for: Tenderness Extremity: Positive for: Normal ROM. Negative for: Deformity, Swelling Neurologic/Psych: Positive for: Alert, Oriented (x3). Negative for: Motor/ Sensory Deficits - Laboratory Results Result Diagrams: 02/08/17 05:10 - ECG O2 Sat by Pulse Oximetry: 96 (RA) Pulse Ox Interpretation: Normal Medical Decision Making Medical Decision Making: Initial Impression: hyperglycemia, sore throat Initial Plan: --Comp Metabolic Panel --HumuLIN R 4 units SC --Rapid Streph Group A Antigen --reevaluation of note: patient was discharged yesterday after being admitted for chest pain and bronchitis 06:31 --Anion gap is 10. Patient diagnosed with hyperglycemia. --Upon provider evaluation patient is medically stable, and requires no further treatment in the ED at this time. Patient will be discharged home. Counseling was provided and all questions were answered regarding diagnosis and need for follow up. There is agreement to discharge plan. Return if symptoms persist or worsen. Scribe Attestation: Documented by Jaxson Montes De Oca, acting as a scribe for Jerod Masters MD Provider Scribe Attestation: All medical record entries made by the Scribe were at my direction and personally dictated by me. I have reviewed the chart and agree that the record accurately reflects my personal performance of the history, physical exam, medical decision making, and the department course for this patient. I have also personally directed, reviewed, and agree with the discharge instructions and disposition. Disposition - Clinical Impression Clinical Impression: Hyperglycemia - Patient ED Disposition Is Patient to be Admitted: No Counseled Patient/Family Regarding: Studies Performed, Diagnosis, Need For Followup - Disposition Disposition: Routine/Home Disposition Time: 06:00 Condition: IMPROVED Additional Instructions: follow up with your primary doctor in 1-2 days return to ED with any worsening or concerning symptoms Instructions: Diabetic Hyperglycemia (ED) Forms: [employer] (Citizen Of [place])
[2017-02-08 05:27] LABS: ALB/GLOB RATIO 1.3 (1.0-2.1); ALKALINE PHOSPHATASE 86 U/L (38-126); ALT/SGPT 38 U/L (21-72); AST/SGOT 25 U/L (17-59); BILIRUBIN,TOTAL 0.4 mg/dl (0.2-1.3); BLOOD UREA NITROGEN 20 mg/dl (9-20); CALCIUM 8.8 mg/dL (8.4-10.2); CARBON DIOXIDE 24 mmol/L (22-30); CHLORIDE 98 mmol/L (98-107); GFR AFRICAN-AMERICAN > 60; GLUCOSE,RANDOM 337 mg/dL (75-110); POTASSIUM 4.4 MMOL/L (3.6-5.0); SODIUM 133 mmol/l (132-148); TOTAL PROTEIN 6.9 G/DL (6.3-8.2)
== END 2017-02-08 07:35 | disposition home or self-care (01) ==
LOC: H.ER 04:00
DX: E11.65 Type 2 diabetes mellitus with hyperglycemia (principal); Z79.4 Long term (current) use of insulin; F41.9 Anxiety disorder, unspecified; I10 Essential (primary) hypertension

== ENCOUNTER 2017-02-08 18:08 | Inpatient (IN) | payer OTHER, MEDICAID ==
[2017-02-08 18:09] VITALS: BMI 34.4
--- NOTE | 2017-02-08 19:25 | ED PDOC ---
HPI: CCC, URI, Sore Throat Time Seen by Provider: 02/08/17 18:23 Chief Complaint (Nursing): Cough, Cold, Congestion Chief Complaint (Provider): Cough and shortness of breath History Per: Patient History/Exam Limitations: no limitations Additional Complaint(s): Patient is a 61 y/o male with a past medical history of diabetes, hypertension, and chronic obstructive pulmonary disorder presenting to the emergency department for a productive cough (clear phlegm) and shortness of breath ongoing for three days with associated chest tightness, sore throat, and a runny nose. Notes that he was in the hospital this past week for chest pain and bronchitis. Further reports that he was prescribed antibiotics which he did not fill due to insurance issues. Has also used an albuterol pump with minimal relief. Denies fever, leg swelling, or other complaints. PCP: Dr. Alegria ([place]) Past Medical History Reviewed: Historical Data, Nursing Documentation, Vital Signs Vital Signs: Last Vital Signs Temp 98.2 F 02/08/17 21:44 Pulse 99 H 02/08/17 21:44 Resp 19 02/08/17 21:44 BP 135/80 02/08/17 21:44 Pulse Ox 96 02/08/17 21:44 - Medical History PMH: Anxiety, COPD, Diabetes, HTN Denies: Hepatitis, HIV, Chronic Kidney Disease, Seizures, Sexually Transmitted Disease - Surgical History Surgical History: Appendectomy - Family History Family History: States: Unknown Family Hx - Living Arrangements Living Arrangements: Other (undomiciled) - Social History Current smoker - smoking cessation education provided: No (quit on October 2016) Ex-Smoker (has not smoked in the last 12 months): Yes - Immunization History Hx Tetanus Toxoid Vaccination: No Hx Influenza Vaccination: No Hx Pneumococcal Vaccination: No - Home Medications Home Medications: Ambulatory Orders Medication Instructions Recorded Acetaminophen [Athenol] 650 mg PO Q8 PRN 02/06/17 Clonazepam [Klonopin] 0.5 mg PO TID 02/06/17 DiphenhydrAMINE [Benadryl] 50 mg PO DAILY PRN 02/06/17 Ibuprofen [Motrin Tab] 600 mg PO BID PRN 02/06/17 Loratadine [Allergy Relief] 10 mg PO DAILY 02/06/17 Albuterol Sulfate [Proair Hfa] 1 inh INH PRN PRN #1 inhaler 02/07/17 Atorvastatin Calcium [Lipitor] 80 mg PO DAILY #30 tablet 02/07/17 DULoxetine [Cymbalta] 20 mg PO DAILY #30 ecc 02/07/17 Hydroxyzine HCl 25 mg PO BID PRN #60 tablet 02/07/17 Insulin Aspart [Novolog Flexpen] 12 units SC TID #30 ml 02/07/17 Insulin Glargine,Hum.rec.anlog 44 units SC BID #30 insuln.pen 02/07/17 [Lantus Solostar] Lisinopril [Zestril] 20 mg PO DAILY #30 tab 02/07/17 Metformin HCl [Glucophage] 1,000 mg PO BID #60 tablet 02/07/17 Omeprazole 20 mg PO DAILY #60 tablet. 02/07/17 amLODIPine [Norvasc] 5 mg PO DAILY #30 tab 02/07/17 - Allergies Allergies/Adverse Reactions: Allergies Allergy/AdvReac Type Severity Reaction Status Date / Time No Known Allergies Allergy Verified 02/08/17 21:40 Review of Systems ROS Statement: Except As Marked, All Systems Reviewed And Found Negative Constitutional: Negative for: Fever ENT: Positive for: Nose Discharge (rhinorrhea), Throat Pain Cardiovascular: Positive for: Other (chest tightness) Respiratory: Positive for: Cough (clear phlegm), Shortness of Breath Musculoskeletal: Positive for: Other (leg swelling) Physical Exam - Reviewed Nursing Documentation Reviewed: Yes Vital Signs Reviewed: Yes - Physical Exam Appears: Positive for: Non-toxic, In Acute Distress Head Exam: Positive for: ATRAUMATIC, NORMOCEPHALIC Skin: Positive for: Warm, Dry Eye Exam: Positive for: EOMI, PERRL ENT: Positive for: Pharynx Is (clear with tacky mucus membranes). Negative for : Pharyngeal Erythema, Tonsillar Exudate Neck: Positive for: Painless ROM, Supple Cardiovascular/Chest: Positive for: Regular Rate, Rhythm, Chest Non Tender. Negative for: Murmur Respiratory: Positive for: Decreased Breath Sounds, Rhonchi Gastrointestinal/Abdominal: Positive for: Soft. Negative for: Tenderness Back: Positive for: Normal Inspection. Negative for: Decreased ROM Extremity: Positive for: Pedal Edema (trace bilateral). Negative for: Calf Tenderness Lymphatic: Negative for: Adenopathy Neurologic/Psych: Positive for: Alert. Negative for: Motor/Sensory Deficits - Laboratory Results Result Diagrams: 02/08/17 19:29 02/08/17 19:29 - ECG ECG: Positive for: Interpreted By Me ECG Rhythm: Positive for: Normal QRS, Normal ST Segment, Sinus Rhythm O2 Sat by Pulse Oximetry: 96 (RA) Pulse Ox Interpretation: Normal - Radiology X-Ray: Interpreted by Me X-Ray Interpretation: No Acute Disease Nebulizer Treatments/Peak Flow - Duonebs Number of Bronchodilator Doses given?: 3 - Steroid Treatment Steroid: IV - Clinical Response Clinical Response: Unchanged Medical Decision Making Medical Decision Making: Time: 18:52 Initial Impression: COPD exacerbation and bronchitis Initial Plan: ABG lab EKG B-Type Natriuretic Protein CMP Urine Drug Screen Magnesium Phosphorous stat Troponin state ED Urine Dipstick CBC Partial Thromboplastin Time Prothrombin Time Chest XR Glucose, Blood, POC assessment Influenza test stat Rapid Strep Group test Reevaluation Scribe Attestation: Documented by Jasmyn Mg, acting as a scribe for Faviola Gudino MD. Provider Scribe Attestation: All medical record entries made by the Scribe were at my direction and personally dictated by me. I have reviewed the chart and agree that the record accurately reflects my personal performance of the history, physical exam, medical decision making, and the department course for this patient. I have also personally directed, reviewed, and agree with the discharge instructions and disposition. Disposition - Clinical Impression Clinical Impression: Bronchitis, Hyperglycemia, Influenza Discussed With : Johnson Malin Counseled Patient/Family Regarding: Studies Performed - Disposition Disposition Time: 21:00 Condition: FAIR - Pt Status Changed To: Hospital Disposition Of: Observation - POA Present On Arrival: Poor Glycemic Control
[2017-02-08 19:42] LABS: BASO % 0.3 % (0.0-2.0); EOS # 0.1 K/uL (0.0-0.7); HEMOGLOBIN 13.2 g/dL (12.0-18.0); LYMPH # 0.9 K/uL (1.0-4.3); LYMPH % 15.9 % (20.0-40.0); MEAN CORPUSCULAR HEMOGLOBIN 29.1 pg (27.0-31.0); MEAN CORPUSCULAR HGB CONC 33.1 g/dL (33.0-37.0); MONO # 0.4 K/uL (0.0-0.8); MONO % 6.8 % (0.0-10.0); NEUT # 4.3 K/uL (1.8-7.0); NRBC % 0.1 % (0.0-0.0); RBC 4.54 Mil/uL (4.40-5.90); RED CELL DISTRIBUTION WIDTH 13.9 % (11.5-14.5); WHITE BLOOD COUNT 5.7 K/uL (4.8-10.8)
[2017-02-08 19:47] LABS: ABG ALLEN TEST YES; ARTERIAL BLOOD GAS HCO3 25.6 mmol/L (21-28); ARTERIAL BLOOD GAS O2 SAT 96.6 % (95-98); ARTERIAL BLOOD GAS PCO2 38 mm/Hg (35-45); ARTERIAL BLOOD GAS PH 7.43 (7.35-7.45); ARTERIAL BLOOD GAS PO2 63 mm/Hg (80-100); ARTERIAL BLOOD GAS TCO2 26.4 mmol/L (22-28)
[2017-02-08 19:54] LABS: ALB/GLOB RATIO 1.3 (1.0-2.1); ALBUMIN 3.8 g/dL (3.5-5.0); ALT/SGPT 34 U/L (21-72); AST/SGOT 33 U/L (17-59); BLOOD UREA NITROGEN 20 mg/dl (9-20); CALCIUM 9.1 mg/dL (8.4-10.2); GFR AFRICAN-AMERICAN > 60; GFR NON-AFRICAN AMERICAN > 60; MAGNESIUM 1.9 MG/DL (1.6-2.3)
[2017-02-08 19:58] LABS: B-TYPE NATRIURETIC PEPTIDE 119 pg/ml (0-900)
[2017-02-08] MEDS ORDERED: Albuterol-Ipratrop 3 mg / 0.5 (3 ml) UD INH STA (20:30)
[2017-02-08 21:33] LABS: BARBITURATES, UR NEGATIVE (NEGATIVE); BENZODIAZEPINES, UR NEGATIVE (NEGATIVE); OPIATES, UR NEGATIVE (NEGATIVE); PHENCYCLIDINE, UR NEGATIVE (NEGATIVE)
[2017-02-08] MEDS ORDERED: Dextrose 50% SYRINGE Inj (50 ml) IV PRN (21:52)
[2017-02-08] MEDS ORDERED: Glucagon Recombinant 1 mg Inj IM PRN (21:52)
[2017-02-08] MEDS ORDERED: INSULIN GLARGINE HUM REC ANLOG 44 UNIT SC SCH (23:15)
[2017-02-09] MEDS: Insulin Detemir 100 Units/ml Inj SC SCH ×2 (00:10→09:03)
[2017-02-09] MEDS: Insulin Regular 100 units/ml SC SCH ×3 (00:21→12:30)
[2017-02-09] MEDS: Pantoprazole 40 mg EC Tab PO SCH ×2 (00:24→08:24)
[2017-02-09] MEDS: Fluticasone-Salmeterol 250-50mcg Diskus IH SCH ×3 (00:25→21:12)
[2017-02-09] MEDS: Benzocaine/Menthol (Cepacol) Lozenge PO PRN ×3 (01:01→16:17)
[2017-02-09] MEDS: Albuterol-Ipratrop 3 mg / 0.5 (3 ml) UD INH SCH ×5 (01:06→19:43)
[2017-02-09] MEDS: methylPREDNISolone 60 MG in Sodium Chloride 0.9% 50 ML IV SCH ×2 (04:31→09:04)
[2017-02-09] MEDS ORDERED: Insulin Lispro (humaLOG) 100 Units/ml Inj SC ONE (05:01)
--- NOTE | 2017-02-09 05:03 | CP.PCM.PCO ---
Physician Communication Note - Physician Communication Note Physician Communication Note: Paged for patient requesting his blood sugar to be checked at 4:38am. Assessment & Plan - Assessment and Plan (Free Text) Assessment: Patients sugar was checked at 4:38 am at his request and was found to be 428 mg/ dL. Patient is admitted for COPD exacerbation and URI, receiving treatment with steroids. 3 units of Lispro given at this time per bedtime protocol. Discussed with nurse not checking the blood sugar outside of the scheduled times as there is a schedule when to give insulin as well and patients sugar will be elevated secondary to steroid treatment. - Date & Time Date: 02/09/17 Time: 05:08
[2017-02-09] MEDS ORDERED: Insulin Regular 100 units/ml SC SCH (07:30)
--- NOTE | 2017-02-09 08:21 | CARD ---
APPROVED REPORT EKG Measurement Heart [id number] <Conclusion> Normal sinus rhythm Normal ECG
[2017-02-09] MEDS: Enoxaparin 40 mg Syringe SC SCH (08:28)
[2017-02-09] MEDS: Insulin Lispro (humaLOG) 100 Units/ml Inj SC SCH ×4 (08:32→22:05)
[2017-02-09] MEDS ORDERED: Patient's Own Med (Atorvastatin Calcium [Lipitor] 80 mg) PO SCH (09:00)
[2017-02-09] MEDS ORDERED: INSULIN ASPART 12 UNIT SC SCH (09:00)
--- NOTE | 2017-02-09 09:01 | CP.PCM.HP ---
History of Present Illness - History of Present Illness History of Present Illness: Patient is a 61 y/o male with a past medical history of diabetes, hypertension, and chronic obstructive pulmonary disorder presenting to the emergency department for a productive cough (clear phlegm) and shortness of breath ongoing for three days with associated chest tightness, sore throat, and a runny nose. Notes that he was in the hospital this past week for chest pain and bronchitis. Further reports that he was prescribed antibiotics which he did not fill due to insurance issues. Has also used an albuterol pump with minimal relief. Denies fever, leg swelling, or other complaints. Patient seen and examined bedside with Dr ash. Patient reports sore throat, denies SOB, fever, vomiting, abd pain, myalgia. PCP: Dr. Alegria ([place]) PSurgHx:AA PShx: Denies ETOH,rect drugs. former smoker x 20 ears 1/2 PPD. quit 1 year ago Present on Admission - Present on Admission Any Indicators Present on Admission: No History of DVT/PE: No History of Uncontrolled Diabetes: No Urinary Catheter: No Decubitus Ulcer Present: No Review of Systems - Cardiovascular Cardiovascular: As Per HPI - Respiratory Respiratory: Cough, Dyspnea - Gastrointestinal Gastrointestinal: As Per HPI - Genitourinary Genitourinary: As Per HPI - Neurological Neurological: As Per HPI Past Patient History - Infectious Disease Hx of Infectious Diseases: None - Past Medical History & Family History Past Medical History?: Yes - Past Social History Smoking Status: Former Smoker - CARDIAC Hx Cardiac Disorders: Yes Hx Hypercholesterolemia: Yes Hx Hypertension: Yes - PULMONARY Hx Respiratory Disorders: Yes Hx Bronchitis: Yes Hx Chronic Obstructive Pulmonary Disease (COPD): Yes - NEUROLOGICAL Hx Neurological Disorder: No Hx Seizures: No - HEENT Hx HEENT Problems: No - RENAL Hx Chronic Kidney Disease: No - ENDOCRINE/METABOLIC Hx Endocrine Disorders: Yes Hx Diabetes Mellitus Type 2: Yes - HEMATOLOGICAL/ONCOLOGICAL Hx Blood Disorders: No Hx AIDS: No Hx Human Immunodeficiency Virus (HIV): No - INTEGUMENTARY Hx Dermatological Problems: No - MUSCULOSKELETAL/RHEUMATOLOGICAL Hx Musculoskeletal Disorders: No Hx Falls: No - GASTROINTESTINAL Hx Gastrointestinal Disorders: No - GENITOURINARY/GYNECOLOGICAL Hx Genitourinary Disorders: No Hx Sexually Transmitted Disorders: No - PSYCHIATRIC Hx Psychophysiologic Disorder: Yes Hx Anxiety: Yes Hx Substance Use: No - SURGICAL HISTORY Hx Surgeries: Yes Hx Appendectomy: Yes - ANESTHESIA Hx Anesthesia: Yes Hx Anesthesia Reactions: No Hx Malignant Hyperthermia: No Has any member of the family had a problem w/ anesthesia?: No Meds Allergies/Adverse Reactions: Allergies Allergy/AdvReac Type Severity Reaction Status Date / Time No Known Allergies Allergy Verified 02/08/17 21:40 Physical Exam - Constitutional Appears: Non-toxic, No Acute Distress - Head Exam Head Exam: ATRAUMATIC, NORMOCEPHALIC - Eye Exam Eye Exam: Normal appearance - ENT Exam ENT Exam: Normal Exam - Neck Exam Neck exam: Positive for: Normal Inspection - Respiratory Exam Respiratory Exam: Decreased Breath Sounds, Wheezes. absent: Rales, Rhonchi Additional comments: b/l bibasal - Cardiovascular Exam Cardiovascular Exam: REGULAR RHYTHM, +S1, +S2 - GI/Abdominal Exam GI & Abdominal Exam: Normal Bowel Sounds, Soft. absent: Distended, Guarding, Rebound - Extremities Exam Extremities exam: Positive for: normal inspection. Negative for: calf tenderness, pedal edema - Neurological Exam Neurological exam: Alert, Oriented x3 - Psychiatric Exam Psychiatric exam: Normal Affect, Normal Mood - Skin Skin Exam: Intact Results - Vital Signs Recent Vital Signs: Last Vital Signs Temp 98.7 F 02/09/17 07:49 Pulse 100 H 02/09/17 08:26 Resp 20 02/09/17 07:49 BP 169/90 H 02/09/17 08:26 Pulse Ox 92 L 02/09/17 07:49 - Labs Result Diagrams: 02/09/17 10:58 02/09/17 10:57 Labs: Laboratory Results - last 24 hr 02/08/17 02/08/17 02/08/17 19:29 19:29 19:29 WBC 5.7 RBC 4.54 Hgb 13.2 Hct 40.0 MCV 88.0 MCH 29.1 MCHC 33.1 RDW 13.9 Plt Count 224 MPV 8.0 Neut % (Auto) 76.0 H Lymph % (Auto) 15.9 L Posey % (Auto) 6.8 Eos % (Auto) 1.0 Baso % (Auto) 0.3 Neut # 4.3 Lymph # 0.9 L Posey # 0.4 Eos # 0.1 Baso # 0.0 pCO2 pO2 HCO3 ABG pH ABG Total CO2 ABG O2 Saturation ABG Base Excess Waqas Test ABG Potassium A-a O2 Difference Glucose Lactate FiO2 Sodium 138 Potassium 3.7 Chloride 104 Carbon Dioxide 24 Anion Gap 14 BUN 20 Creatinine 0.9 Est GFR ( Amer) > 60 Est GFR (Non-Af Amer) > 60 POC Glucose (mg/dL) Random Glucose 258 H Calcium 9.1 Phosphorus 2.6 Magnesium 1.9 Total Bilirubin 0.3 AST 33 ALT 34 Alkaline Phosphatase 70 Troponin I 0.0170 NT-Pro-B Natriuret Pep 119 Total Protein 6.8 Albumin 3.8 Globulin 3.0 Albumin/Globulin Ratio 1.3 Arterial Blood Potassium Urine Opiates Screen Urine Methadone Screen Ur Barbiturates Screen Ur Phencyclidine Scrn Ur Amphetamines Screen U Benzodiazepines Scrn U Oth Cocaine Metabols U Cannabinoids Screen Influenza Typ A,B (EIA) Pos for influenza a H Grp A Beta Strep Ag 02/08/17 02/08/17 02/08/17 19:29 19:31 19:38 WBC RBC Hgb Hct MCV MCH MCHC RDW Plt Count MPV Neut % (Auto) Lymph % (Auto) Posey % (Auto) Eos % (Auto) Baso % (Auto) Neut # Lymph # Posey # Eos # Baso # pCO2 38 pO2 63 L HCO3 25.6 ABG pH 7.43 ABG Total CO2 26.4 ABG O2 Saturation 96.6 ABG Base Excess 1.0 Waqas Test Yes ABG Potassium 3.5 L A-a O2 Difference 39.0 Glucose 246 H Lactate 1.8 FiO2 21.0 Sodium 136.0 Potassium Chloride 103.0 Carbon Dioxide Anion Gap BUN Creatinine Est GFR ( Amer) Est GFR (Non-Af Amer) POC Glucose (mg/dL) 215 H Random Glucose Calcium Phosphorus Magnesium Total Bilirubin AST ALT Alkaline Phosphatase Troponin I NT-Pro-B Natriuret Pep Total Protein Albumin Globulin Albumin/Globulin Ratio Arterial Blood Potassium 3.5 L Urine Opiates Screen Urine Methadone Screen Ur Barbiturates Screen Ur Phencyclidine Scrn Ur Amphetamines Screen U Benzodiazepines Scrn U Oth Cocaine Metabols U Cannabinoids Screen Influenza Typ A,B (EIA) Grp A Beta Strep Ag Negative 02/08/17 02/08/17 02/09/17 21:11 22:33 04:38 WBC RBC Hgb Hct MCV MCH MCHC RDW Plt Count MPV Neut % (Auto) Lymph % (Auto) Posey % (Auto) Eos % (Auto) Baso % (Auto) Neut # Lymph # Posey # Eos # Baso # pCO2 pO2 HCO3 ABG pH ABG Total CO2 ABG O2 Saturation ABG Base Excess Waqas Test ABG Potassium A-a O2 Difference Glucose Lactate FiO2 Sodium Potassium Chloride Carbon Dioxide Anion Gap BUN Creatinine Est GFR ( Amer) Est GFR (Non-Af Amer) POC Glucose (mg/dL) 182 H 428 H* Random Glucose Calcium Phosphorus Magnesium Total Bilirubin AST ALT Alkaline Phosphatase Troponin I NT-Pro-B Natriuret Pep Total Protein Albumin Globulin Albumin/Globulin Ratio Arterial Blood Potassium Urine Opiates Screen Negative Urine Methadone Screen Negative Ur Barbiturates Screen Negative Ur Phencyclidine Scrn Negative Ur Amphetamines Screen Negative U Benzodiazepines Scrn Negative U Oth Cocaine Metabols Negative U Cannabinoids Screen Negative Influenza Typ A,B (EIA) Grp A Beta Strep Ag 02/09/17 07:59 WBC RBC Hgb Hct MCV MCH MCHC RDW Plt Count MPV Neut % (Auto) Lymph % (Auto) Posey % (Auto) Eos % (Auto) Baso % (Auto) Neut # Lymph # Posey # Eos # Baso # pCO2 pO2 HCO3 ABG pH ABG Total CO2 ABG O2 Saturation ABG Base Excess Waqas Test ABG Potassium A-a O2 Difference Glucose Lactate FiO2 Sodium Potassium Chloride Carbon Dioxide Anion Gap BUN Creatinine Est GFR ( Amer) Est GFR (Non-Af Amer) POC Glucose (mg/dL) 345 H Random Glucose Calcium Phosphorus Magnesium Total Bilirubin AST ALT Alkaline Phosphatase Troponin I NT-Pro-B Natriuret Pep Total Protein Albumin Globulin Albumin/Globulin Ratio Arterial Blood Potassium Urine Opiates Screen Urine Methadone Screen Ur Barbiturates Screen Ur Phencyclidine Scrn Ur Amphetamines Screen U Benzodiazepines Scrn U Oth Cocaine Metabols U Cannabinoids Screen Influenza Typ A,B (EIA) Grp A Beta Strep Ag Assessment & Plan - Assessment and Plan (Free Text) Plan: Assessment/Plan 1) COPD exacerbation CXR: no consolidation.subacute to chronic lat low left lung base base discoid atelectasis and/or scarring -duoneb, steroids 2) Influenza -Tamiflu 75 mg BID 3) DM -metformin 1000 bid 4) HTN -Lisinoprol 20 mg daily 3) DVT Prophylaxis lovenox
--- NOTE | 2017-02-09 09:48 | RAD ---
HISTORY: sob COMPARISON: 02/06/2017, 02/04/2017 and 12/10/2016 TECHNIQUE: Chest PA and lateral FINDINGS: LUNGS: No consolidation. Minimal left lateral lung base discoid atelectasis and/or scarring -stable appearing PLEURA: No significant pleural effusion identified. No pneumothorax apparent. CARDIOVASCULAR: Cardiomegaly N prominent hilar soft tissues right greater than left yet stable since 12/10/2016. Significance unknown. OSSEOUS STRUCTURES: No significant abnormalities. VISUALIZED UPPER ABDOMEN: Normal. OTHER FINDINGS: None. IMPRESSION: No interval consolidation. Subacute to chronic lateral low left lung base discoid atelectasis and/or scarring Mild cardiomegaly and mildly prominent hilar soft tissues (right hilum greater than left -significance, if any- unknown. If earlier chest x-rays prior to 12/10/2016 are available, comparison recommended to ensure stability.
[2017-02-09 11:44] LABS: HEMOGLOBIN 13.1 g/dL (12.0-18.0); MEAN CELL VOLUME 88.1 fl (80.0-94.0); MEAN CORPUSCULAR HGB CONC 32.8 g/dL (33.0-37.0); RBC 4.53 Mil/uL (4.40-5.90); RED CELL DISTRIBUTION WIDTH 13.8 % (11.5-14.5); WHITE BLOOD COUNT 7.6 K/uL (4.8-10.8)
[2017-02-09 12:05] LABS: ALB/GLOB RATIO 1.3 (1.0-2.1); ALBUMIN 3.7 g/dL (3.5-5.0); ALT/SGPT 44 U/L (21-72); AST/SGOT 32 U/L (17-59); BLOOD UREA NITROGEN 18 mg/dl (9-20); CALCIUM 9.2 mg/dL (8.4-10.2); GFR AFRICAN-AMERICAN > 60; GFR NON-AFRICAN AMERICAN > 60
[2017-02-09] MEDS: guaiFENesin-DM 600-30 mg ER Tab PO SCH (16:18)
[2017-02-09] MEDS ORDERED: Insulin Lispro (humaLOG) 100 Units/ml Inj SC SCH (16:30)
[2017-02-09] MEDS ORDERED: Insulin Detemir 100 Units/ml Inj SC SCH ×2 (22:00)
[2017-02-10] MEDS: Albuterol-Ipratrop 3 mg / 0.5 (3 ml) UD INH SCH ×7 (00:18→23:59)
[2017-02-10] MEDS: Benzocaine/Menthol (Cepacol) Lozenge PO PRN ×3 (01:57→17:02)
[2017-02-10] MEDS ORDERED: Insulin Lispro (humaLOG) 100 Units/ml Inj SC SCH (07:30)
--- NOTE | 2017-02-10 07:51 | CP.PCM.PN ---
Subjective - Date & Time of Evaluation Date of Evaluation: 02/10/17 Time of Evaluation: 07:35 - Subjective Subjective: Patient seen and examined bedside with Dr Malin. PAtient reports occs cough and wheezing. Patient denies chest pain, fever, abd pain, dysuria, myalgia. reports that sore throat has subsided. Patient noted with wheezing during round. will have douneb Objective - Vital Signs/Intake and Output Vital Signs (last 24 hours): Temp Pulse Resp BP Pulse Ox 97.8 F 104 H 18 151/79 H 93 L 02/10/17 00:06 02/10/17 00:06 02/10/17 00:06 02/10/17 00:06 02/10/17 00:06 - Medications Medications: Current Medications Acetaminophen (Tylenol 325mg Tab) 650 mg PO Q8 PRN PRN Reason: pain or fever Last Admin: 02/10/17 04:51 Dose: 650 mg Albuterol/Ipratropium (Duoneb 3 Mg/0.5 Mg (3 Ml) Ud) 3 ml INH RQ4 [facility] Last Admin: 02/10/17 04:39 Dose: 3 ml Amlodipine Besylate (Norvasc) 5 mg PO DAILY [facility] Last Admin: 02/09/17 08:25 Dose: 5 mg Atorvastatin Calcium (Lipitor) 80 mg PO DAILY [facility] Last Admin: 02/09/17 08:24 Dose: 80 mg Benzocaine/Menthol (Cepacol Sore Throat) 1 brandin PO Q2 PRN PRN Reason: Sore Throat Last Admin: 02/10/17 01:57 Dose: 1 brandin Clonazepam (Klonopin) 0.5 mg PO TID [facility] Last Admin: 02/09/17 16:27 Dose: 0.5 mg Dextrose (Dextrose 50% Inj) 0 ml IV STAT PRN; Protocol PRN Reason: Hypoglycemia Protocol Dextrose (Glutose 15) 0 gm PO ONCE PRN; Protocol PRN Reason: Hypoglycemia Protocol Diphenhydramine HCl (Benadryl) 50 mg PO DAILY PRN PRN Reason: insomnia/allergy Duloxetine HCl (Cymbalta) 20 mg PO DAILY [facility] Last Admin: 02/09/17 08:25 Dose: 20 mg Enoxaparin Sodium (Lovenox) 40 mg SC DAILY [facility] PRN Reason: Protocol Last Admin: 02/09/17 08:28 Dose: 40 mg Glucagon (Glucagen Diagnostic Kit) 0 mg IM STAT PRN; Protocol PRN Reason: Hypoglycemia Protocol Guaifenesin/Dextromethorphan (Mucinex-Dm 600-30 Mg) 1 tab PO BID [facility] Last Admin: 02/09/17 16:18 Dose: 1 tab Hydroxyzine HCl (Atarax) 25 mg PO BID PRN PRN Reason: Anxiety Ibuprofen (Motrin Tab) 600 mg PO BID PRN PRN Reason: pain or inflammation Insulin Detemir (Levemir) 60 units SC HS [facility] Last Admin: 02/09/17 22:24 Dose: 60 units Insulin Human Lispro (Humalog) 0 units SC ACHS [facility] PRN Reason: Protocol Last Admin: 02/09/17 22:05 Dose: Not Given Insulin Human Lispro (Humalog) 30 units SC AC [facility] Lisinopril (Zestril) 20 mg PO DAILY [facility] Last Admin: 02/09/17 08:26 Dose: 20 mg Loratadine (Claritin) 10 mg PO DAILY [facility] Last Admin: 02/09/17 08:25 Dose: 10 mg Metformin HCl (Glucophage) 1,000 mg PO BID [facility] Last Admin: 02/09/17 16:21 Dose: 1,000 mg Methylprednisolone (Solu-Medrol) 40 mg IV Q8 [facility] Last Admin: 02/10/17 00:18 Dose: 40 mg Oseltamivir Phosphate (Tamiflu Cap) 75 mg PO BID [facility] PRN Reason: Protocol Last Admin: 02/09/17 16:18 Dose: 75 mg Pantoprazole Sodium (Protonix Ec Tab) 40 mg PO DAILY [facility] Last Admin: 02/09/17 08:24 Dose: 40 mg Fluticasone/Salmeterol (Advair Diskus 250/50) 1 puff IH Q12 [facility] Last Admin: 02/09/17 21:12 Dose: 1 puff - Labs Labs: 02/09/17 10:58 02/09/17 10:57 - Constitutional Appears: Non-toxic, No Acute Distress - Head Exam Head Exam: ATRAUMATIC, NORMOCEPHALIC - ENT Exam ENT Exam: Mucous Membranes Moist - Respiratory Exam Respiratory Exam: Wheezes (expiratory wheezing b/l lung mena ) - Cardiovascular Exam Cardiovascular Exam: REGULAR RHYTHM, +S1, +S2 - GI/Abdominal Exam GI & Abdominal Exam: Soft, Normal Bowel Sounds. absent: Tenderness - Extremities Exam Extremities Exam: Full ROM, Normal Inspection. absent: Pedal Edema - Neurological Exam Neurological Exam: Alert, Awake, Oriented x3 - Psychiatric Exam Psychiatric exam: Normal Affect, Normal Mood - Skin Skin Exam: Intact Assessment and Plan - Assessment and Plan (Free Text) Plan: Assessment/Plan 1) COPD exacerbation CXR: no consolidation.subacute to chronic lat low left lung base base discoid atelectasis and/or scarring -c/w duoneb, steroids 2) Influenza -Tamiflu 75 mg BID 3) DM -metformin 1000 bid 4) Hyperglycemia -secondary to DM and steroids medications -insulin dose increased by best worker 5) HTN -Lisinoprol 20 mg daily 6) DVT Prophylaxis lovenox
[2017-02-10 07:59] LABS: HEMOGLOBIN 12.4 g/dL (12.0-18.0); MEAN CELL VOLUME 88.3 fl (80.0-94.0); MEAN CORPUSCULAR HEMOGLOBIN 29.3 pg (27.0-31.0); MEAN CORPUSCULAR HGB CONC 33.2 g/dL (33.0-37.0); RBC 4.23 Mil/uL (4.40-5.90); RED CELL DISTRIBUTION WIDTH 13.8 % (11.5-14.5); WHITE BLOOD COUNT 8.5 K/uL (4.8-10.8)
[2017-02-10] MEDS: Enoxaparin 40 mg Syringe SC SCH (08:21)
[2017-02-10] MEDS: guaiFENesin-DM 600-30 mg ER Tab PO SCH ×2 (08:22→17:04)
[2017-02-10] MEDS: Pantoprazole 40 mg EC Tab PO SCH (08:22)
[2017-02-10] MEDS: Fluticasone-Salmeterol 250-50mcg Diskus IH SCH ×2 (08:23→21:38)
[2017-02-10 08:24] LABS: LDL CHOLESTEROL 57 mg/dL (0-129)
[2017-02-10] MEDS: Insulin Lispro (humaLOG) 100 Units/ml Inj SC SCH ×5 (08:26→21:32)
--- NOTE | 2017-02-10 08:34 | PQF GENQUE ---
Dr. Malin, Please specify he status of DM 2: i.e. With hyperglycemia (poorly controlled, out of control, etc.) With hypoglycemia With ketoacidosis Other (please specify) Clinically unable to determine Unknown H and P: DM -metformin 1000 bid Physician orders include: insulin, accucheck, Consistent Carbohydrate diet clinical labs:Random Glucose:285->457 POC Glucose:215->182->428->345->422-.342->276->463 This form is a permanent part of the medical record Clarification of your documentation is requested to better reflect the severity of illness and intensity of treatment of your patient. Indicators present [] Specify: [] [] Specify: [] [] Specify: [] [] Specify: [] Location in the medical record that reflects the above clinical findings: [] Treatment Provided: [] PHYSICIAN'S RESPONSE Based on your medical judgment of the clinical indicators outlined above please clarify the following: [] Practitioner response [] If unable to determine, please check the box, sign and date. Present On Admission (POA) Indicator: [] Present at the time of admission [] Not present at the time of admission [] Clinically Undetermined In responding to this query, please exercise your independent professional judgment. The fact that a question is asked does not imply that any particular answer is desired or expected. Thank you for your clarification on this documentation. If you have any questions please call. * Thank you Khushbu Saavedra RN ext. #[phone] MTDD
[2017-02-10 08:59] LABS: ALB/GLOB RATIO 1.3 (1.0-2.1); ALBUMIN 3.5 g/dL (3.5-5.0); ALT/SGPT 40 U/L (21-72); AST/SGOT 26 U/L (17-59); BLOOD UREA NITROGEN 21 mg/dl (9-20); CALCIUM 9.1 mg/dL (8.4-10.2); GFR AFRICAN-AMERICAN > 60; GFR NON-AFRICAN AMERICAN > 60; HDL CHOLESTEROL 50 MG/DL (30-70)
[2017-02-10] MEDS ORDERED: Sodium Chloride 3% for Inhalation 4 ML VIAL.NEB IH PRN (12:03)
[2017-02-10] MEDS: Azithromycin 500 MG in Sodium Chloride 0.9% 250 ML IVPB SCH (17:08)
[2017-02-10] MEDS: Insulin Detemir 100 Units/ml Inj SC SCH (21:38)
[2017-02-11] MEDS: MethylPREDNISolone 40 mg Vial IV SCH ×3 (00:20→16:39)
--- NOTE | 2017-02-11 00:57 | PN ---
DATE: LOCATION: Room 658 SUBJECTIVE: This is a 61-year-old male with recent uncontrolled type 2 insulin-requiring diabetes, now being followed closely for metabolic management. He presented here with acute exacerbation of COPD and was started on IV steroid therapy with expected transient hyperglycemic accelerations as noted thereof. His glucose values are fluctuating today as noted and have ranged from 460-463 mg/dL. It was 276-342 at bedtime last night. The latest chemistry showed a BUN of 21, sodium 133, potassium 4.6, chloride 97, CO2 of 26, glucose 521 and creatinine 0.8. So at this time we will modify once again his basal and bolus insulin regimen and increase the Levemir to 80 units subcu at bedtime daily to start tonight. We will also increase the prandial insulin with Humalog to be given at 40 units subcu t.i.d. before meals as ordered. We will titrate incrementally as indicated to optimize metabolic control. We will also continue the low-dose correction scale using Humalog insulin as ordered. We will obtain serial chemistries and supplement accordingly as needed. We will follow up with you. Kaci Jamil MD
[2017-02-11] MEDS: Albuterol-Ipratrop 3 mg / 0.5 (3 ml) UD INH SCH ×6 (05:14→23:57)
[2017-02-11] MEDS: Insulin Lispro (humaLOG) 100 Units/ml Inj SC SCH ×7 (08:19→22:39)
--- NOTE | 2017-02-11 08:28 | CP.PCM.PN ---
Subjective - Date & Time of Evaluation Date of Evaluation: 02/11/17 Time of Evaluation: 07:25 - Subjective Subjective: Patient seen and examined bedside with Dr Malin. Pstient reports mild sore throat today and has been with persistent dry cough last night. Patient denies chest pain, fever, abd pain, dysuria, myalgia. Pulmonology consult called. Objective - Vital Signs/Intake and Output Vital Signs (last 24 hours): Temp Pulse Resp BP Pulse Ox 97.7 F 75 20 154/75 H 95 02/11/17 07:39 02/11/17 07:39 02/11/17 07:39 02/11/17 07:39 02/11/17 07:39 - Medications Medications: Current Medications Acetaminophen (Tylenol 325mg Tab) 650 mg PO Q8 PRN PRN Reason: pain or fever Last Admin: 02/10/17 04:51 Dose: 650 mg Albuterol/Ipratropium (Duoneb 3 Mg/0.5 Mg (3 Ml) Ud) 3 ml INH RQ4 [facility] Last Admin: 02/11/17 05:14 Dose: Not Given Amlodipine Besylate (Norvasc) 5 mg PO DAILY [facility] Last Admin: 02/10/17 08:23 Dose: 5 mg Atorvastatin Calcium (Lipitor) 80 mg PO DAILY [facility] Last Admin: 02/10/17 08:23 Dose: 80 mg Benzocaine/Menthol (Cepacol Sore Throat) 1 brandin PO Q2 PRN PRN Reason: Sore Throat Last Admin: 02/10/17 17:02 Dose: 1 brandin Clonazepam (Klonopin) 0.5 mg PO TID [facility] Last Admin: 02/10/17 17:02 Dose: 0.5 mg Dextrose (Dextrose 50% Inj) 0 ml IV STAT PRN; Protocol PRN Reason: Hypoglycemia Protocol Dextrose (Glutose 15) 0 gm PO ONCE PRN; Protocol PRN Reason: Hypoglycemia Protocol Diphenhydramine HCl (Benadryl) 50 mg PO DAILY PRN PRN Reason: insomnia/allergy Duloxetine HCl (Cymbalta) 20 mg PO DAILY [facility] Last Admin: 02/10/17 08:23 Dose: 20 mg Enoxaparin Sodium (Lovenox) 40 mg SC DAILY [facility] PRN Reason: Protocol Last Admin: 02/10/17 08:21 Dose: 40 mg Glucagon (Glucagen Diagnostic Kit) 0 mg IM STAT PRN; Protocol PRN Reason: Hypoglycemia Protocol Guaifenesin/Dextromethorphan (Mucinex-Dm 600-30 Mg) 1 tab PO BID [facility] Last Admin: 02/10/17 17:04 Dose: 1 tab Hydroxyzine HCl (Atarax) 25 mg PO BID PRN PRN Reason: Anxiety Azithromycin 500 mg/ Sodium (Chloride) 250 mls @ 250 mls/hr IVPB DAILY [facility] PRN Reason: Protocol Last Admin: 02/10/17 17:08 Dose: 250 mls/hr Ibuprofen (Motrin Tab) 600 mg PO BID PRN PRN Reason: pain or inflammation Insulin Detemir (Levemir) 80 units SC HS [facility] Last Admin: 02/10/17 21:38 Dose: 80 u Insulin Human Lispro (Humalog) 0 units SC ACHS [facility] PRN Reason: Protocol Last Admin: 02/11/17 08:20 Dose: 4 units Insulin Human Lispro (Humalog) 40 units SC AC [facility] Last Admin: 02/11/17 08:19 Dose: 40 units Lisinopril (Zestril) 20 mg PO DAILY [facility] Last Admin: 02/10/17 08:22 Dose: 20 mg Loratadine (Claritin) 10 mg PO DAILY [facility] Last Admin: 02/10/17 08:25 Dose: 10 mg Metformin HCl (Glucophage) 1,000 mg PO BID [facility] Last Admin: 02/10/17 17:04 Dose: 1,000 mg Methylprednisolone (Solu-Medrol) 40 mg IV Q8 [facility] Last Admin: 02/11/17 00:20 Dose: 40 mg Oseltamivir Phosphate (Tamiflu Cap) 75 mg PO BID [facility] PRN Reason: Protocol Last Admin: 02/10/17 17:04 Dose: 75 mg Pantoprazole Sodium (Protonix Ec Tab) 40 mg PO DAILY [facility] Last Admin: 02/10/17 08:22 Dose: 40 mg Fluticasone/Salmeterol (Advair Diskus 250/50) 1 puff IH Q12 [facility] Last Admin: 02/10/17 21:38 Dose: 1 puff - Labs Labs: 02/10/17 06:38 02/10/17 06:38 - Constitutional Appears: Non-toxic, No Acute Distress - Eye Exam Eye Exam: Normal appearance - ENT Exam ENT Exam: Mucous Membranes Moist - Neck Exam Neck Exam: Normal Inspection - Respiratory Exam Respiratory Exam: Decreased Breath Sounds (b/l lung bases), Wheezes (b/l scattered wheezing ) - Cardiovascular Exam Cardiovascular Exam: REGULAR RHYTHM, +S1, +S2 - GI/Abdominal Exam GI & Abdominal Exam: Soft, Normal Bowel Sounds. absent: Tenderness - Extremities Exam Extremities Exam: Normal Inspection. absent: Pedal Edema, Tenderness - Neurological Exam Neurological Exam: Alert, Awake, Oriented x3 - Psychiatric Exam Psychiatric exam: Normal Mood - Skin Skin Exam: Intact Assessment and Plan - Assessment and Plan (Free Text) Plan: Assessment/Plan 1) COPD exacerbation CXR: no consolidation.subacute to chronic lat low left lung base base discoid atelectasis and/or scarring -c/w duoneb, steroids 2) Influenza -c/w Tamiflu 75 mg BID 3) DM -metformin 1000 bid 4) Hyperglycemia -secondary to DM and steroids medications -insulin dose increased by slide forming machine tender 5) HTN -Lisinoprol 20 mg daily 6) DVT Prophylaxis lovenox
[2017-02-11] MEDS: Fluticasone-Salmeterol 250-50mcg Diskus IH SCH ×2 (09:06→21:48)
[2017-02-11] MEDS: guaiFENesin-DM 600-30 mg ER Tab PO SCH ×2 (09:08→16:38)
[2017-02-11] MEDS: Enoxaparin 40 mg Syringe SC SCH (09:09)
[2017-02-11] MEDS: Pantoprazole 40 mg EC Tab PO SCH (09:09)
[2017-02-11] MEDS: Azithromycin 500 MG in Sodium Chloride 0.9% 250 ML IVPB SCH (09:11)
--- NOTE | 2017-02-11 10:53 | CON ---
DATE: ENDOCRINOLOGY CONSULT LOCATION: Room 658. HISTORY OF PRESENT ILLNESS: This is a 61-year-old male with known history of type 2 insulin-requiring diabetes and hypertension, presenting here with acute exacerbation of COPD and started on IV steroid therapy with supervening hyperglycemic accelerations as expected thereof. PAST MEDICAL HISTORY: As mentioned above, history of type 2 insulin-requiring diabetes, currently on a combination of Lantus given as 44 units subcu b.i.d. with NovoLog given as 12 units subcu t.i.d., history of hypertension and dyslipidemia, and history of chronic obstructive lung disease, on bronchodilator and nebulizer therapy. FAMILY HISTORY: Positive for hypertension and diabetes. SOCIAL HISTORY: Patient has a longstanding history of nicotine dependence, but quit a few years ago. REVIEW OF SYSTEMS: As mentioned above. Admits to generalized body weakness with progressive bouts of dizziness and lightheadedness, worsened on the day of admission. No chest pains or palpitations or PNDs; however, admits to progressive shortness of breath, especially on exertion with productive cough and supervening upper respiratory wheezing and respiratory distress. His oral intake has been variable with nausea, dyspepsia, occasional upper abdominal pain. Admits to marked polyuria, nocturia, polydipsia, about a 5-pound or so weight loss. PHYSICAL EXAMINATION: GENERAL: This is an average-built male, in no apparent distress. VITAL SIGNS: Blood pressure 140/80, pulse of 70 beats per minute and regular, temperature 99, respirations 20, height is 5 feet 7 inches, and weight is 220 pounds. HEENT: Head is normocephalic. Eyes, anicteric with pink conjunctivae. Funduscopy is not possible at this time. Ears, nose, and throat otherwise normal. NECK: Supple. Thyroid gland is normal in size. No carotid bruits or any cervical adenopathy. CARDIOPULMONARY: Some adynamic precordium. S1 and S2 is rapid and regular. LUNGS: Clear to auscultation. ABDOMEN: Obese, soft with positive bowel sounds. EXTREMITIES: No peripheral edema. Pulses are +2 bilaterally. LABORATORY DATA: His glucose levels have ranged from 342 to 422 and 428 mg/dL. His latest chemistries showed a BUN of 18, sodium 134, potassium 4.1, chloride 98, CO2 of 28, glucose 457, and creatinine 0.8. ASSESSMENT: This is a 61-year-old male with uncontrolled and decompensated type 2 insulin-requiring diabetes with marked hyperglycemic accelerations related to the intercurrent IV steroid therapy with transient increased insulin resistance and also transient hyperglycemic accelerations as noted thereof. He also has a history though of uncontrolled type 2 insulin-requiring diabetes with underlying diabetic polyneuropathy and peripheral arterial vasculopathy. PLAN OF MANAGEMENT: As discussed with the patient and staff, we will modify his current insulin regimen and add Humalog for prandial insulin requirements at 24 units subcu t.i.d. to start today as ordered. We will increase the Levemir to 16 units subcu at bedtime daily to start tonight. We will modify the coverage scale to obviate hypoglycemia and detailed orders have been given. We will obtain hemoglobin A1c to confirm his prior glycemic control and baseline thyroid function studies will be ordered. We will obtain serial chemistries and supplement accordingly as needed. We will follow. Kaci Jamil MD
--- NOTE | 2017-02-11 16:35 | PN ---
DATE: ENDOCRINOLOGY FOLLOWUP NOTE LOCATION: Room 658. SUBJECTIVE: This is a 61-year-old male with recent uncontrolled type 2 insulin-requiring diabetes with marked hyperglycemic accelerations related to the intercurrent IV steroid therapy given for management of acute exacerbation of asthmatic bronchitis and COPD as noted. His glycemic levels are fluctuating and today's glucose values have ranged from 317-447 mg/dL. It was 201 at bedtime last night. His hemoglobin A1c is 10.9%, which is extremely elevated and suboptimal despite his outpatient insulin management as noted. His latest chemistry showed a BUN of 21, sodium 133, potassium 4.6, chloride 97, CO2 of 26, glucose 521, and creatinine 0.8. So, at this time, we will continue the same high-dose basal and bolus insulin regimen to allow for dose equilibration and keep him on the Humalog at 40 units t.i.d. before meals as ordered. We will also keep him on the Levemir given as 80 units subcu at bedtime daily as given. We will also continue the low-dose correction scale using Humalog insulin as ordered. He is still on Solu-Medrol given as a tapering dose of 40 IV q. 8 hours as noted. We will obtain serial chemistries and supplement accordingly as needed. We will follow. Kaci Jamil MD
[2017-02-11] MEDS: Insulin Detemir 100 Units/ml Inj SC SCH (21:49)
--- NOTE | 2017-02-11 23:07 | CT ---
EXAM: CT Chest Without Intravenous Contrast EXAM DATE/TIME: 02/11/2017 1:30 PM CLINICAL HISTORY: 61 years old, male; Signs and symptoms; Other: Pneumonia, influenza, copd TECHNIQUE: Axial computed tomography images of the chest without intravenous contrast. All CT scans at this facility use one or more dose reduction techniques, viz.: automated exposure control; ma/kV adjustment per patient size (including targeted exams where dose is matched to indication; i.e. head); or iterative reconstruction technique. Coronal and sagittal reformatted images were created and reviewed. COMPARISON: There are no prior studies for comparison. FINDINGS: Lungs and pleural spaces: Trachea and main bronchi are patent. There is fatty pleural thickening at the lung bases. There are no effusions. There is no lobar or segmental consolidation. There is minimal atelectasis/scarring at the lung bases. Heart and vasculature: The heart is enlarged.There is fluid in pericardial recesses. There are coronary artery calcifications. Aorta is normal in caliber.There are vascular calcifications.Pulmonary vessels are unremarkable. Mediastinum: There are small shotty mediastinal nodes.Margarette are not optimally evaluated without contrast material. The esophagus is unremarkable. Thyroid: Thyroid is only partially imaged. Bones/joints: There are degenerative changes in the osseus structures. Soft tissues: unremarkable Upper abdomen: There are no acute abnormalities in the visualized portion of the abdomen. IMPRESSION: Minimal atelectasis and scarring at the lung bases, no focal pneumonia; mild cardiomegaly and atherosclerotic disease
--- NOTE | 2017-02-11 23:31 | CON ---
DATE: HISTORY OF PRESENT ILLNESS: Mr. Spence is a 61-year-old male, who was referred by Dr. Malin for pulmonary evaluation. He is admitted with a cough productive of clear phlegm, shortness of breath for the past several days prior to presentation and chest tightness. He has a history of chronic obstructive pulmonary disease, diabetes mellitus, hypertension. FAMILY HISTORY: Unremarkable. SOCIAL HISTORY: Socially, he quit smoking several months ago. Denies alcohol use. Denies drug use. REVIEW OF SYSTEMS: Essentially remarkable for occasional shortness of breath. PHYSICAL EXAMINATION: GENERAL: The patient is alert, oriented, appears to be somewhat short of breath at rest and on mild exertion. VITAL SIGNS: Blood pressure 154/75, pulse of 75, respiratory rate 20. He is afebrile. O2 sat 95% on room air. SKIN: Shows fair turgor. HEENT: Pupils are equal and reactive to light and accommodation. Mouth shows fair hygiene. NECK: JVP flat. LUNGS: Fair aeration with mild wheezing and dullness at the bases. HEART: S1, S2. ABDOMEN: Soft, nontender. No organomegaly. EXTREMITIES: Show no edema or cyanosis. CENTRAL NERVOUS SYSTEM: Grossly intact. LABORATORY DATA: Remarkable for WBC of 8.5, hemoglobin 12.4, platelet count 208,000. Urine toxicology negative. Haemophilus influenzae type A and B positive. Electrolytes reviewed, serum glucose 447. ABG: pH 7.43, pCO2 38, pO2 of 63, O2 sat 96.6. Chest x-ray: Subacute to chronic lateral low left lung base discoid atelectasis and/or scarring, mild cardiomegaly, and mild prominent hilar soft tissue, right hilum greater than left. IMPRESSION: Acute exacerbation of chronic obstructive pulmonary disease with atelectasis of lung; flu type A and B; history of hypertension; diabetes mellitus, poorly controlled. PLAN: Continue IV antibiotics as well as bronchodilators, on oxygen. Would probably obtain a CAT scan of the chest to further evaluate pulmonary findings. Droplet precautions already started. We will continue to follow with you. Jose Philippe MD
[2017-02-12] MEDS: MethylPREDNISolone 40 mg Vial IV SCH ×3 (01:51→16:19)
[2017-02-12] MEDS: Albuterol-Ipratrop 3 mg / 0.5 (3 ml) UD INH SCH ×6 (05:08→23:27)
[2017-02-12] MEDS: Fluticasone-Salmeterol 250-50mcg Diskus IH SCH ×2 (08:47→21:26)
[2017-02-12] MEDS: Insulin Lispro (humaLOG) 100 Units/ml Inj SC SCH ×7 (08:50→21:28)
[2017-02-12] MEDS: Pantoprazole 40 mg EC Tab PO SCH (09:02)
[2017-02-12] MEDS: Azithromycin 500 MG in Sodium Chloride 0.9% 250 ML IVPB SCH (09:02)
[2017-02-12] MEDS: Enoxaparin 40 mg Syringe SC SCH (09:02)
[2017-02-12] MEDS: guaiFENesin-DM 600-30 mg ER Tab PO SCH ×2 (09:03→16:21)
--- NOTE | 2017-02-12 11:26 | PN ---
DATE: ENDOCRINOLOGY FOLLOWUP NOTE LOCATION: Room 658. SUBJECTIVE: This is a 61-year-old male with recent uncontrolled type 2 insulin-requiring diabetes, presenting here with acute exacerbation of COPD and currently still on IV steroid therapy as being tapered down and tolerated and is also being followed closely for a metabolic management. His glycemic levels are fluctuating, but much improved at this time and the glucose values have ranged from 141-199 mg/dL. His latest chemistry showed a BUN of 21, sodium 133, potassium 4.6, chloride 97, CO2 of 26, glucose 521 and creatinine 0.8. So at this time, we will actually modify and lower his basal and bolus insulin regimen with Levemir to be given as 40 units subcu at bedtime daily to start tonight. We will also lower the Humalog down to 20 units subcu t.i.d. before meals to start at lunchtime today as ordered. We will titrate incrementally as indicated to optimize metabolic control. We will obtain serial chemistries and supplement accordingly as needed. We will follow. Kaci Jamil MD
--- NOTE | 2017-02-12 11:52 | PN ---
DATE: 02/12/2017 SUBJECTIVE: Patient is seen and examined. Interim events noted. Consults noted and appreciated. Pulmonary and Endocrinology followup and intervention noted and appreciated. The patient remains in regular medical floor, in isolation room. Feels a little better, still having breathing issue, but is improving. No new complaint of chest pain or shortness of breath. Patient is able to ambulate in his room. PHYSICAL EXAMINATION: GENERAL: Patient is in no acute distress. VITAL SIGNS: Stable. HEART: S1 and S2, normal and regular. LUNGS: Improved bilateral air exchange. ABDOMEN: Soft, nontender. EXTREMITIES: No edema. No calf swelling. No tenderness. No acute ischemia. CENTRAL NERVOUS SYSTEM: Essentially unchanged. DIAGNOSTIC DATA: Available diagnostic data reviewed. ASSESSMENT AND PLAN: Overall, patient is noted to be slowly improving. Plan as ordered. Johnson Malin MD
--- NOTE | 2017-02-12 13:33 | CP.PCM.PN ---
Subjective - Date & Time of Evaluation Date of Evaluation: 02/12/17 Time of Evaluation: 13:33 - Subjective Subjective: STILL COUGHING UP GREEN SPUTUM NO CHEST PAINS/SOB Objective - Vital Signs/Intake and Output Vital Signs (last 24 hours): Temp Pulse Resp BP Pulse Ox 97.3 F L 80 18 148/75 95 02/12/17 07:43 02/12/17 09:03 02/12/17 07:43 02/12/17 09:03 02/12/17 07:43 - Medications Medications: Current Medications Acetaminophen (Tylenol 325mg Tab) 650 mg PO Q8 PRN PRN Reason: pain or fever Last Admin: 02/11/17 22:11 Dose: 650 mg Albuterol/Ipratropium (Duoneb 3 Mg/0.5 Mg (3 Ml) Ud) 3 ml INH RQ4 [facility] Last Admin: 02/12/17 11:30 Dose: 3 ml Amlodipine Besylate (Norvasc) 5 mg PO DAILY [facility] Last Admin: 02/12/17 09:03 Dose: 5 mg Atorvastatin Calcium (Lipitor) 80 mg PO DAILY [facility] Last Admin: 02/12/17 09:04 Dose: 80 mg Benzocaine/Menthol (Cepacol Sore Throat) 1 brandin PO Q2 PRN PRN Reason: Sore Throat Last Admin: 02/10/17 17:02 Dose: 1 brandin Clonazepam (Klonopin) 0.5 mg PO TID [facility] Last Admin: 02/12/17 12:38 Dose: 0.5 mg Dextrose (Dextrose 50% Inj) 0 ml IV STAT PRN; Protocol PRN Reason: Hypoglycemia Protocol Dextrose (Glutose 15) 0 gm PO ONCE PRN; Protocol PRN Reason: Hypoglycemia Protocol Diphenhydramine HCl (Benadryl) 50 mg PO DAILY PRN PRN Reason: insomnia/allergy Duloxetine HCl (Cymbalta) 20 mg PO DAILY [facility] Last Admin: 02/12/17 08:48 Dose: 20 mg Enoxaparin Sodium (Lovenox) 40 mg SC DAILY [facility] PRN Reason: Protocol Last Admin: 02/12/17 09:02 Dose: 40 mg Glucagon (Glucagen Diagnostic Kit) 0 mg IM STAT PRN; Protocol PRN Reason: Hypoglycemia Protocol Guaifenesin/Dextromethorphan (Mucinex-Dm 600-30 Mg) 1 tab PO BID [facility] Last Admin: 02/12/17 09:03 Dose: 1 tab Hydroxyzine HCl (Atarax) 25 mg PO BID PRN PRN Reason: Anxiety Azithromycin 500 mg/ Sodium (Chloride) 250 mls @ 250 mls/hr IVPB DAILY [facility] PRN Reason: Protocol Last Admin: 02/12/17 09:02 Dose: 250 mls/hr Ibuprofen (Motrin Tab) 600 mg PO BID PRN PRN Reason: pain or inflammation Insulin Detemir (Levemir) 40 units SC HS [facility] Insulin Human Lispro (Humalog) 0 units SC ACHS [facility] PRN Reason: Protocol Last Admin: 02/12/17 11:31 Dose: Not Given Insulin Human Lispro (Humalog) 20 units SC AC [facility] Last Admin: 02/12/17 12:38 Dose: 20 units Lisinopril (Zestril) 20 mg PO DAILY [facility] Last Admin: 02/12/17 09:03 Dose: 20 mg Loratadine (Claritin) 10 mg PO DAILY [facility] Last Admin: 02/12/17 08:48 Dose: 10 mg Metformin HCl (Glucophage) 1,000 mg PO BID [facility] Last Admin: 02/12/17 08:48 Dose: 1,000 mg Methylprednisolone (Solu-Medrol) 40 mg IV Q8 [facility] Last Admin: 02/12/17 09:02 Dose: 40 mg Oseltamivir Phosphate (Tamiflu Cap) 75 mg PO BID [facility] PRN Reason: Protocol Last Admin: 02/12/17 09:02 Dose: 75 mg Pantoprazole Sodium (Protonix Ec Tab) 40 mg PO DAILY [facility] Last Admin: 02/12/17 09:02 Dose: 40 mg Fluticasone/Salmeterol (Advair Diskus 250/50) 1 puff IH Q12 [facility] Last Admin: 02/12/17 08:47 Dose: 1 puff - Labs Labs: 02/10/17 06:38 02/10/17 06:38 - Constitutional Appears: No Acute Distress - Head Exam Head Exam: ATRAUMATIC, NORMAL INSPECTION, NORMOCEPHALIC - Eye Exam Eye Exam: EOMI, Normal appearance, PERRL Pupil Exam: NORMAL ACCOMODATION, PERRL - ENT Exam ENT Exam: Mucous Membranes Moist, Normal Exam - Neck Exam Neck Exam: Full ROM, Normal Inspection. absent: Lymphadenopathy - Respiratory Exam Respiratory Exam: Decreased Breath Sounds, Rales, NORMAL BREATHING PATTERN - Cardiovascular Exam Cardiovascular Exam: REGULAR RHYTHM, +S1, +S2. absent: Murmur - GI/Abdominal Exam GI & Abdominal Exam: Soft, Normal Bowel Sounds. absent: Tenderness - Rectal Exam Rectal Exam: NORMAL INSPECTION - Extremities Exam Extremities Exam: Full ROM, Normal Capillary Refill, Normal Inspection. absent : Joint Swelling, Pedal Edema - Back Exam Back Exam: NORMAL INSPECTION - Neurological Exam Neurological Exam: Alert, Awake, CN II-XII Intact, Normal Gait, Oriented x3 - Psychiatric Exam Psychiatric exam: Normal Affect, Normal Mood - Skin Skin Exam: Dry, Intact, Normal Color, Warm Assessment and Plan - Assessment and Plan (Free Text) Assessment: COPD EXAC FLU Plan: CONTINUE SAME RX
[2017-02-12] MEDS: Insulin Detemir 100 Units/ml Inj SC SCH (21:26)
[2017-02-13] MEDS: MethylPREDNISolone 40 mg Vial IV SCH ×3 (00:22→16:45)
[2017-02-13] MEDS: Albuterol-Ipratrop 3 mg / 0.5 (3 ml) UD INH SCH ×5 (04:53→19:02)
[2017-02-13 08:14] LABS: HEMOGLOBIN 13.8 g/dL (12.0-18.0); MEAN CELL VOLUME 87.9 fl (80.0-94.0); MEAN CORPUSCULAR HEMOGLOBIN 28.9 pg (27.0-31.0); MEAN CORPUSCULAR HGB CONC 32.8 g/dL (33.0-37.0); RBC 4.77 Mil/uL (4.40-5.90); RED CELL DISTRIBUTION WIDTH 13.6 % (11.5-14.5); WHITE BLOOD COUNT 8.5 K/uL (4.8-10.8)
[2017-02-13] MEDS: Benzocaine/Menthol (Cepacol) Lozenge PO PRN (08:20)
[2017-02-13] MEDS: guaiFENesin-DM 600-30 mg ER Tab PO SCH ×2 (08:20→16:44)
[2017-02-13] MEDS: Pantoprazole 40 mg EC Tab PO SCH (08:20)
[2017-02-13] MEDS: Fluticasone-Salmeterol 250-50mcg Diskus IH SCH ×2 (08:22→21:36)
[2017-02-13] MEDS: Enoxaparin 40 mg Syringe SC SCH (08:23)
[2017-02-13] MEDS: Insulin Lispro (humaLOG) 100 Units/ml Inj SC SCH ×7 (08:24→21:36)
[2017-02-13 08:35] LABS: ALB/GLOB RATIO 1.2 (1.0-2.1); ALBUMIN 3.6 g/dL (3.5-5.0); ALT/SGPT 40 U/L (21-72); AST/SGOT 21 U/L (17-59); BLOOD UREA NITROGEN 22 mg/dl (9-20); CALCIUM 9.1 mg/dL (8.4-10.2); GFR AFRICAN-AMERICAN > 60; GFR NON-AFRICAN AMERICAN > 60
[2017-02-13] MEDS: Azithromycin 500 MG in Sodium Chloride 0.9% 250 ML IVPB SCH (08:41)
[2017-02-13] MEDS: Insulin Detemir 100 Units/ml Inj SC SCH (21:42)
[2017-02-14] MEDS: Albuterol-Ipratrop 3 mg / 0.5 (3 ml) UD INH SCH ×7 (00:46→23:46)
[2017-02-14] MEDS: MethylPREDNISolone 40 mg Vial IV SCH ×3 (01:18→21:15)
[2017-02-14 06:42] LABS: HEMOGLOBIN 14.3 g/dL (12.0-18.0); MEAN CELL VOLUME 85.5 fl (80.0-94.0); MEAN CORPUSCULAR HEMOGLOBIN 29.4 pg (27.0-31.0); MEAN CORPUSCULAR HGB CONC 34.4 g/dL (33.0-37.0); RBC 4.86 Mil/uL (4.40-5.90); RED CELL DISTRIBUTION WIDTH 13.3 % (11.5-14.5); WHITE BLOOD COUNT 8.1 K/uL (4.8-10.8)
[2017-02-14 07:17] LABS: ALB/GLOB RATIO 1.2 (1.0-2.1); ALBUMIN 3.6 g/dL (3.5-5.0); ALT/SGPT 43 U/L (21-72); AST/SGOT 21 U/L (17-59); BLOOD UREA NITROGEN 23 mg/dl (9-20); CALCIUM 9.4 mg/dL (8.4-10.2); GFR AFRICAN-AMERICAN > 60; GFR NON-AFRICAN AMERICAN > 60
[2017-02-14] MEDS: Insulin Lispro (humaLOG) 100 Units/ml Inj SC SCH ×7 (07:18→21:11)
--- NOTE | 2017-02-14 08:58 | CP.PCM.PN ---
Subjective - Date & Time of Evaluation Date of Evaluation: 02/14/17 Time of Evaluation: 08:58 - Subjective Subjective: STILL COUGHING LESS SOB NO CHEST PAIN Objective - Vital Signs/Intake and Output Vital Signs (last 24 hours): Temp Pulse Resp BP Pulse Ox 97.5 F L 67 20 160/79 H 98 02/14/17 08:06 02/14/17 08:06 02/14/17 08:06 02/14/17 08:06 02/14/17 08:06 - Medications Medications: Current Medications Acetaminophen (Tylenol 325mg Tab) 650 mg PO Q8 PRN PRN Reason: pain or fever Last Admin: 02/11/17 22:11 Dose: 650 mg Albuterol/Ipratropium (Duoneb 3 Mg/0.5 Mg (3 Ml) Ud) 3 ml INH RQ4 [facility] Last Admin: 02/14/17 07:21 Dose: 3 ml Amlodipine Besylate (Norvasc) 5 mg PO DAILY [facility] Last Admin: 02/13/17 08:22 Dose: 5 mg Atorvastatin Calcium (Lipitor) 80 mg PO DAILY [facility] Last Admin: 02/13/17 08:20 Dose: 80 mg Benzocaine/Menthol (Cepacol Sore Throat) 1 brandin PO Q2 PRN PRN Reason: Sore Throat Last Admin: 02/13/17 08:20 Dose: 1 brandin Clonazepam (Klonopin) 0.5 mg PO TID [facility] Last Admin: 02/13/17 16:45 Dose: 0.5 mg Dextrose (Dextrose 50% Inj) 0 ml IV STAT PRN; Protocol PRN Reason: Hypoglycemia Protocol Dextrose (Glutose 15) 0 gm PO ONCE PRN; Protocol PRN Reason: Hypoglycemia Protocol Diphenhydramine HCl (Benadryl) 50 mg PO DAILY PRN PRN Reason: insomnia/allergy Duloxetine HCl (Cymbalta) 20 mg PO DAILY [facility] Last Admin: 02/13/17 08:21 Dose: 20 mg Enoxaparin Sodium (Lovenox) 40 mg SC DAILY [facility] PRN Reason: Protocol Last Admin: 02/13/17 08:23 Dose: 40 mg Glucagon (Glucagen Diagnostic Kit) 0 mg IM STAT PRN; Protocol PRN Reason: Hypoglycemia Protocol Guaifenesin/Dextromethorphan (Mucinex-Dm 600-30 Mg) 1 tab PO BID [facility] Last Admin: 02/13/17 16:44 Dose: 1 tab Hydroxyzine HCl (Atarax) 25 mg PO BID PRN PRN Reason: Anxiety Azithromycin 500 mg/ Sodium (Chloride) 250 mls @ 250 mls/hr IVPB DAILY [facility] PRN Reason: Protocol Last Admin: 02/13/17 08:41 Dose: 250 mls/hr Ibuprofen (Motrin Tab) 600 mg PO BID PRN PRN Reason: pain or inflammation Insulin Detemir (Levemir) 50 units SC HS [facility] Insulin Human Lispro (Humalog) 0 units SC ACHS [facility] PRN Reason: Protocol Last Admin: 02/14/17 07:18 Dose: Not Given Insulin Human Lispro (Humalog) 24 units SC AC [facility] Lisinopril (Zestril) 20 mg PO DAILY [facility] Last Admin: 02/13/17 08:20 Dose: 20 mg Loratadine (Claritin) 10 mg PO DAILY [facility] Last Admin: 02/13/17 08:21 Dose: 10 mg Metformin HCl (Glucophage) 1,000 mg PO BID [facility] Last Admin: 02/13/17 16:44 Dose: 1,000 mg Methylprednisolone (Solu-Medrol) 40 mg IV Q8 [facility] Last Admin: 02/14/17 01:18 Dose: 40 mg Oseltamivir Phosphate (Tamiflu Cap) 75 mg PO BID [facility] PRN Reason: Protocol Last Admin: 02/13/17 16:45 Dose: 75 mg Pantoprazole Sodium (Protonix Ec Tab) 40 mg PO DAILY [facility] Last Admin: 02/13/17 08:20 Dose: 40 mg Fluticasone/Salmeterol (Advair Diskus 250/50) 1 puff IH Q12 [facility] Last Admin: 02/13/17 21:36 Dose: 1 puff - Labs Labs: 02/14/17 06:30 02/14/17 06:30 - Constitutional Appears: No Acute Distress - Head Exam Head Exam: ATRAUMATIC, NORMAL INSPECTION, NORMOCEPHALIC - Eye Exam Eye Exam: EOMI, Normal appearance, PERRL Pupil Exam: NORMAL ACCOMODATION, PERRL - ENT Exam ENT Exam: Mucous Membranes Moist, Normal Exam - Neck Exam Neck Exam: Full ROM, Normal Inspection. absent: Lymphadenopathy - Respiratory Exam Respiratory Exam: Prolonged Expiratory Phase, Rales, NORMAL BREATHING PATTERN - Cardiovascular Exam Cardiovascular Exam: REGULAR RHYTHM, +S1, +S2. absent: Murmur - GI/Abdominal Exam GI & Abdominal Exam: Soft, Normal Bowel Sounds. absent: Tenderness - Rectal Exam Rectal Exam: NORMAL INSPECTION - Extremities Exam Extremities Exam: Full ROM, Normal Capillary Refill, Normal Inspection. absent : Joint Swelling, Pedal Edema - Back Exam Back Exam: NORMAL INSPECTION - Neurological Exam Neurological Exam: Alert, Awake, CN II-XII Intact, Normal Gait, Oriented x3 - Psychiatric Exam Psychiatric exam: Normal Affect, Normal Mood - Skin Skin Exam: Dry, Intact, Normal Color, Warm Assessment and Plan - Assessment and Plan (Free Text) Assessment: ACUTE EXAC OF COPD FLU Plan: TAPER STEROIDS
[2017-02-14] MEDS: Fluticasone-Salmeterol 250-50mcg Diskus IH SCH ×2 (09:03→22:04)
[2017-02-14] MEDS: Enoxaparin 40 mg Syringe SC SCH (09:08)
[2017-02-14] MEDS: Pantoprazole 40 mg EC Tab PO SCH (09:10)
[2017-02-14] MEDS: guaiFENesin-DM 600-30 mg ER Tab PO SCH ×2 (09:59→16:29)
[2017-02-14] MEDS: Azithromycin 500 MG in Sodium Chloride 0.9% 250 ML IVPB SCH (09:59)
--- NOTE | 2017-02-14 13:42 | PN ---
DATE: 02/14/2017 SUBJECTIVE: Patient was seen and examined. Interim events noted. Patient remains in a regular medical floor. No chest pain. No coughing. No chest pain. No shortness of breath. PHYSICAL EXAMINATION: GENERAL: Patient is in no acute distress. VITAL SIGNS: Stable. HEART: S1 and S2, normal and regular. LUNGS: Good bilateral air exchange, much improved. ABDOMEN: Soft, nontender. EXTREMITIES: No edema. No calf swelling. No tenderness. No acute ischemia. CENTRAL NERVOUS SYSTEM: Exam is essentially unchanged. DIAGNOSTIC DATA: Available diagnostic data reviewed. ASSESSMENT AND PLAN: Overall, the patient's general medical condition is improving. Plan as ordered. Johnson Malin MD
--- NOTE | 2017-02-14 13:57 | PN ---
DATE: 02/13/2017 ROOM: 658 This is a 61-year-old male with recent uncontrolled type 2 insulin-requiring diabetes presenting here with acute exacerbation of COPD and started on IV steroid therapy with supervening hyperglycemic accelerations as expected thereof. He is now on a tapering dose of the steroids down to Solu-Medrol at 40 mg IV every 8 hours as ordered. His glycemic levels are fluctuating and today's glucose levels have ranged from 173 to 277 and 253 mg/dL. His latest chemistry showed a BUN of 22, sodium 132, potassium 4.1, chloride 97, CO2 30, glucose 293, and creatinine 0.8. So at this time, we will continue the same basal and bolus insulin regimen to allow for dose equilibration and keep him on the Levemir given as 40 units subcu at bedtime daily as ordered. We will continue the Humalog given as 20 units subcu t.i.d. before meals as given. We will continue the low-dose correction scale using Humalog insulin as ordered. We will titrate incrementally as indicated to optimize metabolic control. We will follow. Kaci Jamil MD
--- NOTE | 2017-02-14 15:25 | PN ---
DATE: 02/14/2017 ROOM: 658. This is a 61-year-old male with recent uncontrolled type 2 insulin-requiring diabetes, presenting here with marked hyperglycemic exaggeration related to the intercurrent IV steroid therapy as given for management of acute exacerbation of COPD. His glycemic levels persists and the glucose values have ranged from 253 to 268 and 271 mg/dl. His latest chemistry showed a BUN of 22, sodium 132, potassium 4.1, chloride 97, CO2 30, glucose 293, and creatinine 0.8. So at this time, we will modify his basal and bolus insulin regimen and increase the Levemir to 50 units subcu at bedtime daily to start tonight. We will also increase the Humalog to 24 units subcu t.i.d. before meals to start at lunchtime today as ordered. We will continue the low-dose correction scale using Humalog insulin as given. We will obtain serial chemistries and supplement accordingly as needed. We will follow up. Kaci Jamil MD
[2017-02-14] MEDS ORDERED: Magnesium Citrate Oral SOL (300 ml) PO ONE (17:42)
[2017-02-14] MEDS ORDERED: Insulin Detemir 100 Units/ml Inj SC SCH (22:00)
[2017-02-15] MEDS: Albuterol-Ipratrop 3 mg / 0.5 (3 ml) UD INH SCH ×3 (05:00→11:13)
[2017-02-15] MEDS: Insulin Lispro (humaLOG) 100 Units/ml Inj SC SCH ×4 (06:50→12:21)
--- NOTE | 2017-02-15 07:54 | CP.PCM.PN ---
Subjective - Date & Time of Evaluation Date of Evaluation: 02/15/17 Time of Evaluation: 07:53 - Subjective Subjective: clinically improved no chest pains/sob cough less Objective - Vital Signs/Intake and Output Vital Signs (last 24 hours): Temp Pulse Resp BP Pulse Ox 98.0 F 79 18 129/70 96 02/14/17 23:39 02/14/17 23:39 02/14/17 23:39 02/14/17 23:39 02/14/17 23:39 - Medications Medications: Current Medications Acetaminophen (Tylenol 325mg Tab) 650 mg PO Q8 PRN PRN Reason: pain or fever Last Admin: 02/15/17 02:57 Dose: 650 mg Albuterol/Ipratropium (Duoneb 3 Mg/0.5 Mg (3 Ml) Ud) 3 ml INH RQ4 [facility] Last Admin: 02/15/17 05:00 Dose: 3 ml Amlodipine Besylate (Norvasc) 5 mg PO DAILY [facility] Last Admin: 02/14/17 09:10 Dose: 5 mg Atorvastatin Calcium (Lipitor) 80 mg PO DAILY [facility] Last Admin: 02/14/17 09:09 Dose: 80 mg Benzocaine/Menthol (Cepacol Sore Throat) 1 brandin PO Q2 PRN PRN Reason: Sore Throat Last Admin: 02/13/17 08:20 Dose: 1 brandin Dextrose (Dextrose 50% Inj) 0 ml IV STAT PRN; Protocol PRN Reason: Hypoglycemia Protocol Dextrose (Glutose 15) 0 gm PO ONCE PRN; Protocol PRN Reason: Hypoglycemia Protocol Diphenhydramine HCl (Benadryl) 50 mg PO DAILY PRN PRN Reason: insomnia/allergy Duloxetine HCl (Cymbalta) 20 mg PO DAILY [facility] Last Admin: 02/14/17 09:07 Dose: 20 mg Glucagon (Glucagen Diagnostic Kit) 0 mg IM STAT PRN; Protocol PRN Reason: Hypoglycemia Protocol Guaifenesin/Dextromethorphan (Mucinex-Dm 600-30 Mg) 1 tab PO BID [facility] Last Admin: 02/14/17 16:29 Dose: 1 tab Hydroxyzine HCl (Atarax) 25 mg PO BID PRN PRN Reason: Anxiety Azithromycin 500 mg/ Sodium (Chloride) 250 mls @ 250 mls/hr IVPB DAILY [facility] PRN Reason: Protocol Last Admin: 02/14/17 09:59 Dose: 250 mls/hr Ibuprofen (Motrin Tab) 600 mg PO BID PRN PRN Reason: pain or inflammation Insulin Detemir (Levemir) 50 units SC HS [facility] Last Admin: 02/14/17 21:11 Dose: 50 units Insulin Human Lispro (Humalog) 0 units SC ACHS [facility] PRN Reason: Protocol Last Admin: 02/15/17 06:50 Dose: Not Given Insulin Human Lispro (Humalog) 24 units SC AC [facility] Last Admin: 02/14/17 17:30 Dose: 24 unit Lisinopril (Zestril) 20 mg PO DAILY [facility] Last Admin: 02/14/17 09:09 Dose: 20 mg Loratadine (Claritin) 10 mg PO DAILY [facility] Last Admin: 02/14/17 09:10 Dose: 10 mg Metformin HCl (Glucophage) 1,000 mg PO BID [facility] Last Admin: 02/14/17 16:29 Dose: 1,000 mg Methylprednisolone (Solu-Medrol) 40 mg IV Q12 [facility] Last Admin: 02/14/17 21:15 Dose: 40 mg Pantoprazole Sodium (Protonix Ec Tab) 40 mg PO DAILY [facility] Last Admin: 02/14/17 09:10 Dose: 40 mg Fluticasone/Salmeterol (Advair Diskus 250/50) 1 puff IH Q12 [facility] Last Admin: 02/14/17 22:04 Dose: 1 puff - Labs Labs: 02/14/17 06:30 02/14/17 06:30 - Constitutional Appears: Well - Head Exam Head Exam: ATRAUMATIC, NORMAL INSPECTION, NORMOCEPHALIC - Eye Exam Eye Exam: EOMI, Normal appearance, PERRL Pupil Exam: NORMAL ACCOMODATION, PERRL - ENT Exam ENT Exam: Mucous Membranes Moist, Normal Exam - Neck Exam Neck Exam: Full ROM, Normal Inspection. absent: Lymphadenopathy - Respiratory Exam Respiratory Exam: Clear to Ausculation Bilateral, NORMAL BREATHING PATTERN - Cardiovascular Exam Cardiovascular Exam: REGULAR RHYTHM, +S1, +S2. absent: Murmur - GI/Abdominal Exam GI & Abdominal Exam: Soft, Normal Bowel Sounds. absent: Tenderness - Rectal Exam Rectal Exam: NORMAL INSPECTION - Extremities Exam Extremities Exam: Full ROM, Normal Capillary Refill, Normal Inspection. absent : Joint Swelling, Pedal Edema - Back Exam Back Exam: NORMAL INSPECTION - Neurological Exam Neurological Exam: Alert, Awake, CN II-XII Intact, Normal Gait, Oriented x3 - Psychiatric Exam Psychiatric exam: Normal Affect, Normal Mood - Skin Skin Exam: Dry, Intact, Normal Color, Warm Assessment and Plan - Assessment and Plan (Free Text) Assessment: copd improved flu-resolved Plan: ok to d/c home from the [facility] will sign off case and see again at your request
[2017-02-15 07:59] VITALS: BP 131/86; PULSE 95; RESP 20; TEMP 97.8; O2SAT 97
[2017-02-15] MEDS: Fluticasone-Salmeterol 250-50mcg Diskus IH SCH (08:19)
[2017-02-15] MEDS: Pantoprazole 40 mg EC Tab PO SCH (08:26)
[2017-02-15] MEDS ORDERED: Enoxaparin 40 mg Syringe SC SCH (09:15)
--- NOTE | 2017-02-15 10:09 | PN ---
DATE: 02/13/2017 SUBJECTIVE: Patient seen and examined. Interim events noted. Consults noted and appreciated. Patient remains in regular medical floor with isolation. Patient feels okay. Breathing easily, improved. No chest pain. PHYSICAL EXAMINATION: GENERAL: Patient is in no acute distress. VITAL SIGNS: Stable. HEART: S1 and S2, normal and regular. LUNGS: Improved bilateral air exchange. ABDOMEN: Soft, nontender. EXTREMITIES: No edema. No calf swelling. No tenderness. No acute ischemia. CENTRAL NERVOUS SYSTEM: Essentially unchanged. DIAGNOSTIC DATA: Available diagnostic data reviewed. ASSESSMENT AND PLAN: Overall, patient is fairly improving. Plan as ordered. Johnson Malin MD
[2017-02-15] MEDS: Azithromycin 500 MG in Sodium Chloride 0.9% 250 ML IVPB SCH (10:14)
[2017-02-15] MEDS: MethylPREDNISolone 40 mg Vial IV SCH (10:15)
--- NOTE | 2017-02-15 11:24 | CP.PCM.DIS ---
Provider - Provider Date of Admission: 02/09/17 13:56 Attending physician: Johnson Malin MD Primary care physician: Dr. Alegria Consults: Dr. Philippe-Pulmonary Time Spent in preparation of Discharge (in minutes): 30 Diagnosis - Discharge Diagnosis (1) COPD exacerbation Status: Resolved Priority: Low Hospital Course - Lab Results Lab Results: Micro Results 02/12/17 16:03 Sputum Gram Stain - Final 02/12/17 16:03 Sputum Sputum Culture - Final Yeast Species 02/08/17 19:29 Throat Group A Strep Throat Culture - Final NO BETA STREP GROUP A ISOLATED. Most Recent Lab Values WBC 8.1 K/uL (4.8-10.8) 02/14/17 06:30 RBC 4.86 Mil/uL (4.40-5.90) 02/14/17 06:30 Hgb 14.3 g/dL (12.0-18.0) 02/14/17 06:30 Hct 41.6 % (35.0-51.0) 02/14/17 06:30 MCV 85.5 fl (80.0-94.0) D 02/14/17 06:30 MCH 29.4 pg (27.0-31.0) 02/14/17 06:30 MCHC 34.4 g/dL (33.0-37.0) 02/14/17 06:30 RDW 13.3 % (11.5-14.5) 02/14/17 06:30 Plt Count 290 K/uL (130-400) 02/14/17 06:30 MPV 8.0 fl (7.2-11.7) 02/08/17 19:29 Neut % (Auto) 76.0 % (50.0-75.0) H 02/08/17 19:29 Lymph % (Auto) 15.9 % (20.0-40.0) L 02/08/17 19:29 [place] % (Auto) 6.8 % (0.0-10.0) 02/08/17 19:29 Eos % (Auto) 1.0 % (0.0-4.0) 02/08/17 19:29 Baso % (Auto) 0.3 % (0.0-2.0) 02/08/17 19:29 Neut # 4.3 K/uL (1.8-7.0) 02/08/17 19:29 Lymph # 0.9 K/uL (1.0-4.3) L 02/08/17 19:29 [place] # 0.4 K/uL (0.0-0.8) 02/08/17 19:29 Eos # 0.1 K/uL (0.0-0.7) 02/08/17 19:29 Baso # 0.0 K/uL (0.0-0.2) 02/08/17 19:29 pCO2 38 mm/Hg (35-45) 02/08/17 19:38 pO2 63 mm/Hg (80-100) L 02/08/17 19:38 HCO3 25.6 mmol/L (21-28) 02/08/17 19:38 ABG pH 7.43 (7.35-7.45) 02/08/17 19:38 ABG Total CO2 26.4 mmol/L (22-28) 02/08/17 19:38 ABG O2 Saturation 96.6 % (95-98) 02/08/17 19:38 ABG Base Excess 1.0 mmol/L (-2.0-3.0) 02/08/17 19:38 [place] Test Yes 02/08/17 19:38 ABG Potassium 3.5 mmol/L (3.6-5.2) L 02/08/17 19:38 A-a O2 Difference 39.0 mm/Hg 02/08/17 19:38 Sodium 136.0 mmol/L (132-148) 02/08/17 19:38 Chloride 103.0 mmol/L (98-107) 02/08/17 19:38 Glucose 246 mg/dL (75-110) H 02/08/17 19:38 Lactate 1.8 mmol/L (0.7-2.1) 02/08/17 19:38 FiO2 21.0 % 02/08/17 19:38 Sodium 132 mmol/l (132-148) 02/14/17 06:30 Potassium 5.0 MMOL/L (3.6-5.0) 02/14/17 06:30 Chloride 95 mmol/L (98-107) L 02/14/17 06:30 Carbon Dioxide 29 mmol/L (22-30) 02/14/17 06:30 Anion Gap 13 (10-20) 02/14/17 06:30 BUN 23 mg/dl (9-20) H 02/14/17 06:30 Creatinine 0.8 mg/dl (0.8-1.5) 02/14/17 06:30 Est GFR ( Amer) > 60 02/14/17 06:30 Est GFR (Non-Af Amer) > 60 02/14/17 06:30 POC Glucose (mg/dL) 262 mg/dL (65-110) H 02/15/17 05:22 Random Glucose 301 mg/dL (75-110) H 02/14/17 06:30 Hemoglobin A1c 10.9 % (4.2-6.5) H 02/10/17 09:50 Calcium 9.4 mg/dL (8.4-10.2) 02/14/17 06:30 Phosphorus 2.6 mg/dl (2.5-4.5) 02/08/17 19:29 Magnesium 1.9 MG/DL (1.6-2.3) 02/08/17 19:29 Total Bilirubin 0.4 mg/dl (0.2-1.3) 02/14/17 06:30 AST 21 U/L (17-59) 02/14/17 06:30 ALT 43 U/L (21-72) 02/14/17 06:30 Alkaline Phosphatase 72 U/L (38-126) 02/14/17 06:30 Troponin I 0.0170 ng/mL (0.00-0.120) 02/08/17 19:29 NT-Pro-B Natriuret Pep 119 pg/ml (0-900) 02/08/17 19:29 Total Protein 6.7 G/DL (6.3-8.2) 02/14/17 06:30 Albumin 3.6 g/dL (3.5-5.0) 02/14/17 06:30 Globulin 3.1 gm/dL (2.2-3.9) 02/14/17 06:30 Albumin/Globulin Ratio 1.2 (1.0-2.1) 02/14/17 06:30 Triglycerides 147 mg/DL (0-149) D 02/10/17 06:38 Cholesterol 143 mg/dL (0-199) 02/10/17 06:38 LDL Cholesterol Direct 57 mg/dL (0-129) 02/10/17 06:38 HDL Cholesterol 50 MG/DL (30-70) 02/10/17 06:38 TSH 3rd Generation 0.03 mIU/ML (0.46-4.68) L 02/10/17 06:38 Arterial Blood Potassium 3.5 mmol/L (3.6-5.2) L 02/08/17 19:38 Urine Opiates Screen Negative (NEGATIVE) 02/08/17 21:11 Urine Methadone Screen Negative (NEGATIVE) 02/08/17 21:11 Ur Barbiturates Screen Negative (NEGATIVE) 02/08/17 21:11 Ur Phencyclidine Scrn Negative (NEGATIVE) 02/08/17 21:11 Ur Amphetamines Screen Negative (NEGATIVE) 02/08/17 21:11 U Benzodiazepines Scrn Negative (NEGATIVE) 02/08/17 21:11 U Oth Cocaine Metabols Negative (NEGATIVE) 02/08/17 21:11 U Cannabinoids Screen Negative (NEGATIVE) 02/08/17 21:11 Influenza Typ A,B (EIA) Pos for influenza a (NEGATIVE) H 02/08/17 19:29 Grp A Beta Strep Ag Negative (NEGATIVE) 02/08/17 19:29 - Hospital Course Hospital Course: 62 yr old M admitted for COPD exacerbation. Pulmonary was on consult. Patient improved s/p medical inpatient treatment with IV antibiotics, steroids, bronchodilators and supplemental oxygen. Patient is medically stable for discharge. Instructions given to follow up with PMD within 1 week and take medications as prescribed. - Date & Time of H&P Date of H&P: 02/09/17 Time of H&P: 09:01 Discharge Exam - Head Exam Head Exam: ATRAUMATIC, NORMAL INSPECTION, NORMOCEPHALIC - Eye Exam Eye Exam: EOMI, PERRL - ENT Exam ENT Exam: Mucous Membranes Dry - Neck Exam Neck exam: Full Rom - Respiratory Exam Respiratory Exam: Clear to PA & Lateral, NORMAL BREATHING PATTERN. absent: Rales, Rhonchi, Wheezes - Cardiovascular Exam Cardiovascular Exam: REGULAR RHYTHM, +S1, +S2 - GI/Abdominal Exam GI & Abdominal Exam: Normal Bowel Sounds, Soft. absent: Tenderness - Extremities Exam Extremities exam: full ROM - Back Exam Back exam: absent: CVA tenderness (L), CVA tenderness (R) - Neurological Exam Neurological exam: Alert, CN II-XII Intact, Oriented x3 - Psychiatric Exam Psychiatric exam: Normal Affect, Normal Mood - Skin Skin Exam: Dry, Intact, Normal Color, Warm Discharge Plan - Discharge Medications Prescriptions: Fluconazole [Diflucan] 100 mg PO DAILY #6 tab Fluticasone/Salmeterol 250/50 [Advair Diskus 250/50] 1 puff IH Q12 #1 puff Methylprednisolone [Medrol Dose Pack (21 tabs)] 4 mg PO DAILY #21 mg - Follow Up Plan Condition: FAIR Disposition: HOME/ ROUTINE Instructions: Influenza (DC) Additional Instructions: Take all medications as directed. Follow up with PMD in [address] Alegria Referrals: Johnson Malin MD [Staff Provider] - Clinical Quality Measures - CQM - VTE Did patient receive overlap therapy during hosptialization?: Yes - Date & Time of Discharge Summary Date of Discharge Summary: 02/15/17 Time of Discharge Summary: 11:31
[2017-02-15] MEDS: guaiFENesin-DM 600-30 mg ER Tab PO SCH (12:23)
== END 2017-02-15 15:06 | disposition home or self-care (01) | DRG 88 ==
LOC: H.ER 18:08 → H.ERHOLD 21:10 → H.MEDSURG1 22:28 → OBSVTOIN 02-09 13:56
PROVIDERS: ADMIT Internal Medicine; ATTEND Internal Medicine
DX: J44.1 Chronic obstructive pulmonary disease with (acute) exacerbation (principal); E11.42 Type 2 diabetes mellitus with diabetic polyneuropathy; E11.51 Type 2 diabetes mellitus with diabetic peripheral angiopathy without gangrene; J98.11 Atelectasis; J10.1 Influenza due to other identified influenza virus with other respiratory manifestations; E11.65 Type 2 diabetes mellitus with hyperglycemia; Z79.4 Long term (current) use of insulin; I10 Essential (primary) hypertension; E78.5 Hyperlipidemia, unspecified; Z87.891 Personal history of nicotine dependence

== ENCOUNTER 2017-02-19 14:45 | Emergency (ER) | payer OTHER ==
[2017-02-19 14:45] VITALS: BMI 34.4
[2017-02-19 14:54] VITALS: RESP 18
[2017-02-19] MEDS ORDERED: Albuterol-Ipratrop 3 mg / 0.5 (3 ml) UD INH STA ×3 (16:09→22:15)
[2017-02-19] MEDS ORDERED: Albuterol-Ipratrop 3 mg / 0.5 (3 ml) UD ONE ×3 (16:16→22:14)
--- NOTE | 2017-02-19 16:46 | ED PDOC ---
HPI: General Adult Time Seen by Provider: 02/19/17 14:58 Chief Complaint (Nursing): Flu-like Symptoms Chief Complaint (Provider): Flu-like Symptoms History Per: Patient History/Exam Limitations: no limitations Onset/Duration Of Symptoms: Days (x 5) Current Symptoms Are (Timing): Still Present Recently: Seen In ED Additional History Per: Prior Records Additional Complaint(s): Adonis is a 62 year old male with a history of COPD who presents to the emergency department complaining of headache, eye aches, and shortness of breath for 5 days. Patient was admitted for influenza on February 09, 2017. Patient states after being discharged on February 15, 2017, symptoms got worse. PMD: Emmanuel Past Medical History Reviewed: Historical Data, Nursing Documentation, Vital Signs Vital Signs: Last Vital Signs Temp 98.3 F 02/19/17 14:48 Pulse 83 02/19/17 14:48 Resp 18 02/19/17 14:48 BP 132/74 02/19/17 14:48 Pulse Ox 96 02/19/17 20:45 - Medical History PMH: Anxiety, Bronchitis, COPD, Diabetes, HTN, Hypercholesterolemia Denies: Hepatitis, HIV, Chronic Kidney Disease, Seizures, Sexually Transmitted Disease - Surgical History Surgical History: Appendectomy - Family History Family History: States: Unknown Family Hx - Immunization History Hx Tetanus Toxoid Vaccination: No Hx Influenza Vaccination: No Hx Pneumococcal Vaccination: No - Home Medications Home Medications: Ambulatory Orders Medication Instructions Recorded Acetaminophen [Athenol] 650 mg PO Q8 PRN 02/06/17 Clonazepam [Klonopin] 0.5 mg PO TID 02/06/17 DiphenhydrAMINE [Benadryl] 50 mg PO DAILY PRN 02/06/17 Ibuprofen [Motrin Tab] 600 mg PO BID PRN 02/06/17 Loratadine [Allergy Relief] 10 mg PO DAILY PRN 02/06/17 Albuterol Sulfate [Proair Hfa] 1 inh INH PRN PRN #1 inhaler 02/07/17 Atorvastatin Calcium [Lipitor] 80 mg PO DAILY #30 tablet 02/07/17 DULoxetine [Cymbalta] 20 mg PO DAILY #30 ecc 02/07/17 Hydroxyzine HCl 25 mg PO BID PRN #60 tablet 02/07/17 Insulin Glargine,Hum.rec.anlog 44 units SC BID #30 insuln.pen 02/07/17 [Lantus Solostar] Lisinopril [Zestril] 20 mg PO DAILY #30 tab 02/07/17 Metformin HCl [Glucophage] 1,000 mg PO BID #60 tablet 02/07/17 Omeprazole 20 mg PO DAILY #60 tablet.dr 02/07/17 amLODIPine [Norvasc] 5 mg PO DAILY #30 tab 02/07/17 Fluticasone/Salmeterol 250/50 1 puff IH Q12 #1 puff 02/15/17 [Advair Diskus 250/50] Albuterol 0.083% [Albuterol 0.083% 2.5 mg IH QID PRN #20 02/19/17 Inhal [place] (2.5 mg/3 ml) UD] Insulin Aspart [Novolog Flexpen] 16 units SC TID 02/19/17 - Allergies Allergies/Adverse Reactions: Allergies Allergy/AdvReac Type Severity Reaction Status Date / Time No Known Allergies Allergy Verified 02/08/17 21:40 Review of Systems ROS Statement: Except As Marked, All Systems Reviewed And Found Negative Eyes: Positive for: Other (Eyeaches) Respiratory: Positive for: Shortness of Breath Neurological: Positive for: Headache Physical Exam - Reviewed Nursing Documentation Reviewed: Yes Vital Signs Reviewed: Yes - Physical Exam Appears: Positive for: Well, Non-toxic Head Exam: Positive for: ATRAUMATIC, NORMAL INSPECTION, NORMOCEPHALIC Skin: Positive for: Normal Color, Warm, Dry Eye Exam: Positive for: Normal appearance ENT: Positive for: Normal ENT Inspection Neck: Positive for: Normal Cardiovascular/Chest: Positive for: Regular Rate, Rhythm Respiratory: Positive for: Wheezing (Diffuse Bilateral Wheezing) Extremity: Positive for: Normal ROM Neurologic/Psych: Positive for: Alert, Oriented - Laboratory Results Result Diagrams: 02/19/17 16:30 02/19/17 16:30 - ECG O2 Sat by Pulse Oximetry: 96 (RA) Pulse Ox Interpretation: Normal Medical Decision Making Medical Decision Making: Time: 16:08 Plan: - Venous Blood Gas Shock Panel - Peak Flow Pre/Post Treatment - Nebulizer Treatment - EKG - CMP - Chest X-Ray - CBC - Blood Culture - Duoneb 3 mg/0.5 mg (3 ml) UD Time: 17:25 Chest X-Ray FINDINGS: LUNGS: No focal infiltrate is seen. Left and right hilar regions are stable in outline. Minimal platelike atelectasis or scarring is seen at the left lung base. Minimal amount is seen in the right midlung field. Trachea is midline. Interstitial markings are unchanged. PLEURA: No significant pleural effusion identified. No pneumothorax apparent. CARDIOVASCULAR: Normal. OSSEOUS STRUCTURES: No significant abnormalities. VISUALIZED UPPER ABDOMEN: Normal. OTHER FINDINGS: None. IMPRESSION: No focal alveolar infiltrate. Minor linear atelectasis and scarring at the left lung base. Minimal amount seen in the right mid lung field. Time: 18:00 - Duoneb 3 mg/0.5 mg (3 ml) UD - SOLU-Medrol - Peak Flow Pre/Post Treatment Time: 20:41 Plan: - Klonopin Scribe Attestation: Documented by Sixto Camara, acting as a scribe for Aranza Stearns PA-C Provider Scribe Attestation: All medical record entries made by the Scribe were at my direction and personally dictated by me. I have reviewed the chart and agree that the record accurately reflects my personal performance of the history, physical exam, medical decision making, and the department course for this patient. I have also personally directed, reviewed, and agree with the discharge instructions and disposition. Disposition - Clinical Impression Clinical Impression: COPD (chronic obstructive pulmonary disease), Influenza-like symptoms - Patient ED Disposition Is Patient to be Admitted: No Counseled Patient/Family Regarding: Diagnosis, Need For Followup, Rx Given - Disposition Disposition: Routine/Home Disposition Time: 22:28 Condition: GOOD Prescriptions: Albuterol 0.083% [Albuterol 0.083% Inhal [place] (2.5 mg/3 ml) UD] 2.5 mg IH QID PRN #20 PRN Reason: Shortness Of Breath Instructions: COPD (Chronic Obstructive Pulmonary Disease) (ED) Forms: [employer] ([place])
[2017-02-19 16:51] LABS: VENOUS BLOOD GAS PCO2 40 mmHg (40-60); VENOUS BLOOD GAS PO2 68 mm/Hg (30-55); VENOUS BLOOD PH 7.43 (7.32-7.43)
[2017-02-19 17:22] LABS: BASO % 0.3 % (0.0-2.0); EOS # 0.1 K/uL (0.0-0.7); EOS % 0.6 % (0.0-4.0); HEMOGLOBIN 14.9 g/dL (12.0-18.0); MEAN CELL VOLUME 87.9 fl (80.0-94.0); MEAN CORPUSCULAR HEMOGLOBIN 29.1 pg (27.0-31.0); MEAN PLATELET VOLUME 7.2 fl (7.2-11.7); MONO # 0.7 K/uL (0.0-0.8); NEUT # 5.5 K/uL (1.8-7.0); NEUT % 59.1 % (50.0-75.0); NRBC % 0.1 % (0.0-0.0); RBC 5.14 Mil/uL (4.40-5.90); RED CELL DISTRIBUTION WIDTH 13.9 % (11.5-14.5); WHITE BLOOD COUNT 9.3 K/uL (4.8-10.8)
--- NOTE | 2017-02-19 17:27 | RAD ---
HISTORY: cough, fever; hx copd COMPARISON: No prior. TECHNIQUE: Chest PA and lateral FINDINGS: LUNGS: No focal infiltrate is seen. Left and right hilar regions are stable in outline. Minimal platelike atelectasis or scarring is seen at the left lung base. Minimal amount is seen in the right midlung field. Trachea is midline. Interstitial markings are unchanged. PLEURA: No significant pleural effusion identified. No pneumothorax apparent. CARDIOVASCULAR: Normal. OSSEOUS STRUCTURES: No significant abnormalities. VISUALIZED UPPER ABDOMEN: Normal. OTHER FINDINGS: None. IMPRESSION: No focal alveolar infiltrate. Minor linear atelectasis and scarring at the left lung base. Minimal amount seen in the right mid lung field.
[2017-02-19 17:38] LABS: BLOOD UREA NITROGEN 19 mg/dl (9-20); GFR AFRICAN-AMERICAN > 60; GFR NON-AFRICAN AMERICAN > 60
[2017-02-19 17:39] LABS: ALB/GLOB RATIO 1.3 (1.0-2.1); ALBUMIN 3.8 g/dL (3.5-5.0); ALT/SGPT 55 U/L (21-72); AST/SGOT 27 U/L (17-59); CALCIUM 9.3 mg/dL (8.4-10.2)
[2017-02-19] MEDS ORDERED: Albuterol 0.083% Inhal Sol (2.5 mg/3 mL) UD INH STA (22:12)
[2017-02-19 22:30] VITALS: BP 132/78; PULSE 72; TEMP 98.2; O2SAT 98
--- NOTE | 2017-02-20 11:52 | CARD ---
APPROVED REPORT EKG Measurement Heart [id number] <Conclusion> Normal sinus rhythm Normal ECG
== END 2017-02-19 23:00 | disposition home or self-care (01) ==
LOC: H.ER 14:45
DX: J44.9 Chronic obstructive pulmonary disease, unspecified (principal); E11.9 Type 2 diabetes mellitus without complications; E78.00 Pure hypercholesterolemia, unspecified; F41.9 Anxiety disorder, unspecified; I10 Essential (primary) hypertension; Z79.4 Long term (current) use of insulin
CPT/HCPCS: 71046; 80053; 82803; 82948; 85025; 87040; 87804; 93005; 94640; 96374; 99283; J2930

== ENCOUNTER 2017-02-24 23:29 | Inpatient (IN) | payer OTHER ==
[2017-02-24 23:30] VITALS: BMI 34.4
[2017-02-25] MEDS ORDERED: Albuterol-Ipratrop 3 mg / 0.5 (3 ml) UD INH STA ×2 (00:22→04:06)
[2017-02-25] MEDS ORDERED: Promethazine 12.5 mg/10 ml Syrup PO STA (00:23)
[2017-02-25] MEDS ORDERED: Albuterol-Ipratrop 3 mg / 0.5 (3 ml) UD ONE (00:29)
[2017-02-25] MEDS ORDERED: Promethazine 6.25 MG/5 ML CUP ONE (00:40)
--- NOTE | 2017-02-25 00:44 | ED PDOC ---
HPI: CCC, URI, Sore Throat Time Seen by Provider: 02/25/17 00:08 Chief Complaint (Nursing): Flu-like Symptoms Chief Complaint (Provider): Flu-like Symptoms History Per: Patient History/Exam Limitations: no limitations Onset/Duration Of Symptoms: Days (x 1) Current Symptoms Are (Timing): Still Present Additional Complaint(s): 62 year old male with a history of HTN, diabetes and COPD presents with chills, body aches, and a dry cough, onset this morning. Reports it started when after he was at a restaurant where people were coughing in his face. Also states he just recently got over a cold. Denies fever, cough and phlegm. PMD: none provided Past Medical History Reviewed: Historical Data, Nursing Documentation, Vital Signs Vital Signs: Last Vital Signs Temp 98.2 F 02/25/17 00:04 Pulse 90 02/25/17 00:04 Resp 19 02/25/17 00:04 BP 148/78 02/25/17 00:04 Pulse Ox 95 02/25/17 06:42 - Medical History PMH: Anxiety, Bronchitis, COPD, Diabetes, HTN, Hypercholesterolemia Denies: Hepatitis, HIV, Chronic Kidney Disease, Seizures, Sexually Transmitted Disease - Surgical History Surgical History: Appendectomy - Family History Family History: States: Unknown Family Hx - Immunization History Hx Tetanus Toxoid Vaccination: No Hx Influenza Vaccination: No Hx Pneumococcal Vaccination: No - Home Medications Home Medications: Ambulatory Orders Medication Instructions Recorded Acetaminophen [Athenol] 650 mg PO Q8 PRN 02/06/17 Clonazepam [Klonopin] 0.5 mg PO TID 02/06/17 DiphenhydrAMINE [Benadryl] 50 mg PO DAILY PRN 02/06/17 Ibuprofen [Motrin Tab] 600 mg PO BID PRN 02/06/17 Loratadine [Allergy Relief] 10 mg PO DAILY PRN 02/06/17 Albuterol Sulfate [Proair Hfa] 1 inh INH PRN PRN #1 inhaler 02/07/17 Atorvastatin Calcium [Lipitor] 80 mg PO DAILY #30 tablet 02/07/17 DULoxetine [Cymbalta] 20 mg PO DAILY #30 ecc 02/07/17 Hydroxyzine HCl 25 mg PO BID PRN #60 tablet 02/07/17 Insulin Glargine,Hum.rec.anlog 44 units SC BID #30 insuln.pen 02/07/17 [Lantus Solostar] Lisinopril [Zestril] 20 mg PO DAILY #30 tab 02/07/17 Metformin HCl [Glucophage] 1,000 mg PO BID #60 tablet 02/07/17 Omeprazole 20 mg PO DAILY #60 tablet.dr 02/07/17 amLODIPine [Norvasc] 5 mg PO DAILY #30 tab 02/07/17 Fluticasone/Salmeterol 250/50 1 puff IH Q12 #1 puff 02/15/17 [Advair Diskus 250/50] Albuterol 0.083% [Albuterol 0.083% 2.5 mg IH QID PRN #20 02/19/17 Inhal Kaykay (2.5 mg/3 ml) UD] Insulin Aspart [Novolog Flexpen] 16 units SC TID 02/19/17 - Allergies Allergies/Adverse Reactions: Allergies Allergy/AdvReac Type Severity Reaction Status Date / Time No Known Allergies Allergy Verified 02/08/17 21:40 Review of Systems ROS Statement: Except As Marked, All Systems Reviewed And Found Negative Constitutional: Positive for: Other (body aches). Negative for: Fever Respiratory: Positive for: Cough (dry) Physical Exam - Reviewed Nursing Documentation Reviewed: Yes Vital Signs Reviewed: Yes - Physical Exam Appears: Positive for: Non-toxic, No Acute Distress (actively coughing) Head Exam: Positive for: ATRAUMATIC, NORMOCEPHALIC Skin: Positive for: Normal Color, Warm, Dry Eye Exam: Positive for: EOMI, Normal appearance, PERRL Neck: Positive for: Normal, Painless ROM, Supple Cardiovascular/Chest: Positive for: Regular Rate, Rhythm. Negative for: Murmur Respiratory: Positive for: Wheezing (mild; on left side) Gastrointestinal/Abdominal: Positive for: Normal Exam, Soft. Negative for: Tenderness Back: Positive for: Normal Inspection. Negative for: L CVA Tenderness, R CVA Tenderness, Vertebral Tenderness Extremity: Positive for: Normal ROM. Negative for: Deformity Neurologic/Psych: Positive for: Alert, Oriented - Laboratory Results Result Diagrams: 02/25/17 02:17 02/25/17 02:17 - ECG O2 Sat by Pulse Oximetry: 95 (RA) Pulse Ox Interpretation: Normal Medical Decision Making Medical Decision Making: Time: 00:22 Impression: URI vs asthma exacerbation vs influenza Initial Plan: --Duoneb 3 ml INH --Motrin 600 mg PO --Prelone 40 mg PO --Promethazine 12.5 mg PO --Peak Flow pre/post --Influenza AB --BNP --Chest Xray Chest X-ray FINDINGS: Lungs: Mild parabronchial cuffing, which can be seen with bronchitis, reactive airway disease or viral pneumonitis versus mild failure. Bibasilar lingular nonspecific infiltrates and consolidation are present, consistent with atelectasis or pneumonia. There is interval low lung volumes when compared to prior examination. Pleural space: There is haziness along the left lateral chest wall likely representing layering pleural effusion. There is small left pleural effusion. No pneumothorax. Heart: There is silhouetting of bilateral heart borders. Mediastinum: There is prominent right paratracheal stripe unchanged from prior examination and represents vascular etiology of the azygous vein. Bones/joints: Unremarkable. IMPRESSION: 1. Mild parabronchial cuffing, which can be seen with bronchitis, reactive airway disease or viral pneumonitis versus mild failure. Bibasilar lingular nonspecific infiltrates and consolidation are present, consistent with atelectasis or pneumonia. 2. There is haziness along the left lateral chest wall likely representing layering pleural effusion. There is small left pleural effusion Influenza A B --results are negative. Time: 01:38 --Troponin --Reglan 10 mg IVPB --Normal Saline IV 1,000 mls/hr EKG --Normal sinus rhythm at [address]/T wave changes. Time: 05:50 --Patient is still not feeling better. Feels pressure on his chest. Duonebs are only helping slightly. Given patient is diabetic, overweight and older, will admit for cardiac monitoring and to rule out ACS. Will give ABx for possible PNA. Blood cultures drawn prior to ABx administrationl. Scribe Attestation: Documented by Chiara Lopez, acting as a scribe for Riki Palma MD Provider Scribe Attestation: All medical record entries made by the Scribe were at my direction and personally dictated by me. I have reviewed the chart and agree that the record accurately reflects my personal performance of the history, physical exam, medical decision making, and the department course for this patient. I have also personally directed, reviewed, and agree with the discharge instructions and disposition. Disposition - Clinical Impression Clinical Impression: COPD (chronic obstructive pulmonary disease), Chest pain, Pneumonia Discussed With DrLyndsey: Jose Philippe - Disposition Disposition Time: 06:30 Condition: IMPROVED Forms: [facility] ([place])
[2017-02-25] MEDS ORDERED: Sodium Chloride 0.9% 1,000 ML IV STA (01:39)
[2017-02-25 02:23] LABS: BASO % 0.4 % (0.0-2.0); HEMOGLOBIN 13.1 g/dL (12.0-18.0); LYMPH # 0.8 K/uL (1.0-4.3); LYMPH % 11.9 % (20.0-40.0); MEAN CELL VOLUME 88.8 fl (80.0-94.0); MEAN CORPUSCULAR HEMOGLOBIN 28.7 pg (27.0-31.0); MEAN CORPUSCULAR HGB CONC 32.3 g/dL (33.0-37.0); MEAN PLATELET VOLUME 7.2 fl (7.2-11.7); MONO # 0.3 K/uL (0.0-0.8); MONO % 4.9 % (0.0-10.0); NEUT # 5.5 K/uL (1.8-7.0); NEUT % 82.8 % (50.0-75.0); RBC 4.57 Mil/uL (4.40-5.90); RED CELL DISTRIBUTION WIDTH 14.5 % (11.5-14.5); WHITE BLOOD COUNT 6.6 K/uL (4.8-10.8)
[2017-02-25 02:30] LABS: BLOOD UREA NITROGEN 19 mg/dl (9-20); GFR AFRICAN-AMERICAN > 60; GFR NON-AFRICAN AMERICAN > 60
--- NOTE | 2017-02-25 04:45 | RAD ---
EXAM: XR Chest, 1 View CLINICAL HISTORY: 62 years old, male; Screening exam; Other screening; Additional info: R/O pna TECHNIQUE: Frontal view of the chest. COMPARISON: CR - CHEST TWO VIEWS (PA/LAT) 2017-02-19 17:09 FINDINGS: Lungs: Mild parabronchial cuffing, which can be seen with bronchitis, reactive airway disease or viral pneumonitis versus mild failure. Bibasilar lingular nonspecific infiltrates and consolidation are present, consistent with atelectasis or pneumonia. There is interval low lung volumes when compared to prior examination. Pleural space: There is haziness along the left lateral chest wall likely representing layering pleural effusion. There is small left pleural effusion. No pneumothorax. Heart: There is silhouetting of bilateral heart borders. Mediastinum: There is prominent right paratracheal stripe unchanged from prior examination and represents vascular etiology of the azygous vein. Bones/joints: Unremarkable. IMPRESSION: 1. Mild parabronchial cuffing, which can be seen with bronchitis, reactive airway disease or viral pneumonitis versus mild failure. Bibasilar lingular nonspecific infiltrates and consolidation are present, consistent with atelectasis or pneumonia. 2. There is haziness along the left lateral chest wall likely representing layering pleural effusion. There is small left pleural effusion.
[2017-02-25 05:29] LABS: VENOUS BLOOD GAS BASE EXCESS 2.7 mmol/L (0.0-2.0); VENOUS BLOOD GAS PCO2 44 mmHg (40-60); VENOUS BLOOD GAS PO2 104 mm/Hg (30-55); VENOUS BLOOD PH 7.41 (7.32-7.43)
[2017-02-25] MEDS ORDERED: cefTRIAXone 2 GM in Sodium Chloride 0.9% 100 ML IVPB STA (06:37)
[2017-02-25] MEDS ORDERED: Azithromycin 500 MG in Sodium Chloride 0.9% 250 ML IVPB STA (06:38)
[2017-02-25] MEDS ORDERED: cefTRIAXone (Rocephin) 1 gm Inj ONE (07:53)
[2017-02-25] MEDS ORDERED: Sodium Chloride 3% for Inhalation 4 ML VIAL.NEB IH PRN (12:59)
[2017-02-25] MEDS: Azithromycin 500 MG in Sodium Chloride 0.9% 250 ML IVPB SCH (13:00)
--- NOTE | 2017-02-25 13:16 | CARD ---
APPROVED REPORT EKG Measurement Heart [id number] <Conclusion> Normal sinus rhythm Normal ECG
[2017-02-25] MEDS ORDERED: Pneumococcal 23-Valent Vaccine IM ONE (15:05)
--- NOTE | 2017-02-25 16:07 | HP ---
HISTORY OF PRESENT ILLNESS: Mr. Spence is a 62-year-old male, who was admitted via the emergency room because of chills, body aches, fever and cough. He was found to have pneumonia on the x-ray and advised admission for workup and therapy. PAST MEDICAL HISTORY: He has a past medical history of hypertension, diabetes, chronic obstructive pulmonary disease, presently lives alone. FAMILY HISTORY: Noncontributory. SOCIAL HISTORY: He used to smoke, indicates he quit about 6 months ago. He lives alone at home. PHYSICAL EXAMINATION: GENERAL: The patient is alert, oriented, appears to be in mild distress because of shortness of breath and cough. VITAL SIGNS: Blood pressure 148/78, pulse of 90, respiratory rate is 19. He is afebrile, O2 sat 95% on room air. SKIN: Shows fair turgor. HEENT: Pupils equal, reactive to light and accommodation. Mouth shows fair hygiene with mucous engorgement of pharynx. NECK: JVP flat. LUNGS: Fair aeration with scattered rales and wheezing and dullness at the bases. HEART: S1 and S2. ABDOMEN: Obese, nontender. No organomegaly. EXTREMITIES: 1+ pitting pedal edema. CENTRAL NERVOUS SYSTEM: Grossly intact. LABORATORY DATA: Remarkable for WBC of 6.6, hemoglobin 13.1, platelet count 229,000. Sodium 138, potassium 4.7, BUN of 19, creatinine 0.7, serum glucose 285. Arterial blood gas: PH 7.41, pCO2 of 44, pO2 of 104, bicarbonate of 27.1. Chest x-ray is remarkable for mild peribronchial cuffing, which is compatible with bronchitis or reactive airway disease versus pneumonia. Haziness, left lateral chest, likely representing layering pleural effusion, small left pleural effusion. IMPRESSION: Acute exacerbation of chronic obstructive pulmonary disease, pneumonia, obesity, diabetes mellitus with hyperglycemia, hypertension, hyperlipidemia. PLAN: Septic workup. Sputum for Gram stain and culture. IV antibiotics. Aerosolized bronchodilators. Further therapy will depend on findings. Jose Philippe MD
[2017-02-25] MEDS: Benzocaine/Menthol (Cepacol) Lozenge PO PRN (16:19)
[2017-02-25] MEDS: Fluticasone-Salmeterol 250-50mcg Diskus IH SCH ×2 (16:19→21:57)
[2017-02-25] MEDS: Pantoprazole 40 mg EC Tab PO SCH (16:19)
[2017-02-25] MEDS: Insulin Regular 100 units/ml SC SCH ×2 (16:20→22:58)
[2017-02-25] MEDS ORDERED: Influenza Vaccine 18yr & older 0.5 ML/45 MCG SYR IM ONE (16:30)
[2017-02-25] MEDS: Albuterol 0.083% Inhal Sol (2.5 mg/3 mL) UD IH PRN (16:54)
[2017-02-25] MEDS: Enoxaparin 40 mg Syringe SC SCH (21:00)
[2017-02-26] MEDS: Albuterol 0.083% Inhal Sol (2.5 mg/3 mL) UD IH PRN ×3 (00:27→15:43)
[2017-02-26] MEDS: Insulin Regular 100 units/ml SC SCH ×4 (06:44→21:31)
[2017-02-26] MEDS: Fluticasone-Salmeterol 250-50mcg Diskus IH SCH ×2 (09:25→20:18)
[2017-02-26] MEDS: Enoxaparin 40 mg Syringe SC SCH (09:28)
[2017-02-26] MEDS: Pantoprazole 40 mg EC Tab PO SCH (09:29)
--- NOTE | 2017-02-26 09:37 | CP.PCM.PN ---
Subjective - Date & Time of Evaluation Date of Evaluation: 02/26/17 Time of Evaluation: 09:38 - Subjective Subjective: C/O CHEST TIGHTNESS AND SORETHROAT CAUGHT SMOKING IN THE BATHROOM YESTERDAY STILL COUGHING Objective - Vital Signs/Intake and Output Vital Signs (last 24 hours): Temp Pulse Resp BP Pulse Ox 98.2 F 83 20 151/79 H 92 L 02/26/17 07:49 02/26/17 07:49 02/26/17 07:49 02/26/17 07:49 02/26/17 07:49 - Medications Medications: Current Medications Acetaminophen (Tylenol 325mg Tab) 650 mg PO Q4 PRN PRN Reason: Fever >100.4 F Albuterol Sulfate (Albuterol 0.083% Inhal Kaykay (2.5 Mg/3 Ml) Ud) 2.5 mg IH QID PRN PRN Reason: Shortness of Breath Last Admin: 02/26/17 00:27 Dose: 2.5 mg Amlodipine Besylate (Norvasc) 5 mg PO DAILY [facility] Last Admin: 02/25/17 14:07 Dose: 5 mg Atorvastatin Calcium (Lipitor) 80 mg PO DAILY [facility] Last Admin: 02/25/17 16:21 Dose: 80 mg Benzocaine/Menthol (Cepacol Sore Throat) 1 brandin PO Q3 PRN PRN Reason: Sore Throat Last Admin: 02/25/17 16:19 Dose: 1 brandin Clonazepam (Klonopin) 0.5 mg PO TID [facility] Last Admin: 02/25/17 17:46 Dose: 0.5 mg Duloxetine HCl (Cymbalta) 20 mg PO DAILY [facility] Last Admin: 02/25/17 17:46 Dose: 20 mg Enoxaparin Sodium (Lovenox) 40 mg SC DAILY [facility] PRN Reason: Protocol Last Admin: 02/25/17 21:00 Dose: 40 mg Furosemide (Lasix) 40 mg PO DAILY [facility] Last Admin: 02/25/17 14:06 Dose: 40 mg Ceftriaxone Sodium 1 gm/ (Sodium Chloride) 100 mls @ 100 mls/hr IVPB DAILY [facility] PRN Reason: Protocol Last Admin: 02/25/17 13:00 Dose: Not Given Azithromycin 500 mg/ Sodium (Chloride) 250 mls @ 250 mls/hr IVPB DAILY [facility] PRN Reason: Protocol Last Admin: 02/25/17 13:00 Dose: Not Given Ibuprofen (Motrin Tab) 600 mg PO BID PRN PRN Reason: pain or inflammation Last Admin: 02/25/17 23:06 Dose: 600 mg Insulin Human Regular (Humulin R) 0 units SC ACHS [facility] PRN Reason: Protocol Last Admin: 02/26/17 06:44 Dose: 2 units Lisinopril (Zestril) 20 mg PO DAILY [facility] Last Admin: 02/25/17 16:21 Dose: 20 mg Metformin HCl (Glucophage) 1,000 mg PO BID [facility] Last Admin: 02/25/17 16:20 Dose: 1,000 mg Pantoprazole Sodium (Protonix Ec Tab) 40 mg PO DAILY [facility] Last Admin: 02/25/17 16:19 Dose: 40 mg Fluticasone/Salmeterol (Advair Diskus 250/50) 1 puff IH Q12 [facility] Last Admin: 02/25/17 21:57 Dose: 1 puff - Labs Labs: 02/25/17 02:17 02/25/17 02:17 - Constitutional Appears: Chronically Ill - Head Exam Head Exam: ATRAUMATIC, NORMAL INSPECTION, NORMOCEPHALIC - Eye Exam Eye Exam: EOMI, Normal appearance, PERRL Pupil Exam: NORMAL ACCOMODATION, PERRL - ENT Exam ENT Exam: Mucous Membranes Moist, Normal Exam - Neck Exam Neck Exam: Full ROM, Normal Inspection. absent: Lymphadenopathy - Respiratory Exam Respiratory Exam: Decreased Breath Sounds, Prolonged Expiratory Phase, Rales, Wheezes, NORMAL BREATHING PATTERN - Cardiovascular Exam Cardiovascular Exam: REGULAR RHYTHM, +S1, +S2. absent: Murmur - GI/Abdominal Exam GI & Abdominal Exam: Soft, Normal Bowel Sounds. absent: Tenderness - Rectal Exam Rectal Exam: NORMAL INSPECTION - Extremities Exam Extremities Exam: Full ROM, Normal Capillary Refill, Normal Inspection. absent : Joint Swelling, Pedal Edema - Back Exam Back Exam: NORMAL INSPECTION - Neurological Exam Neurological Exam: Alert, Awake, CN II-XII Intact, Normal Gait, Oriented x3 - Psychiatric Exam Psychiatric exam: Normal Affect, Normal Mood - Skin Skin Exam: Dry, Intact, Normal Color, Warm Assessment and Plan - Assessment and Plan (Free Text) Assessment: COPD EXAC PNEUMONIA POOR COMPLIANCE DM HTN Plan: CONTINUE CURRENT RX SMOKING CESATION ADVISED
[2017-02-26] MEDS: Azithromycin 500 MG in Sodium Chloride 0.9% 250 ML IVPB SCH (10:40)
[2017-02-26] MEDS: Benzocaine/Menthol (Cepacol) Lozenge PO PRN (18:07)
[2017-02-26] MEDS: Promethazine 12.5 mg/10 ml Syrup PO PRN (18:29)
[2017-02-26] MEDS ORDERED: Phenol 1.4% Throat Spray MT PRN (21:39)
[2017-02-27 06:26] LABS: BASO % 0.2 % (0.0-2.0); EOS % 0.2 % (0.0-4.0); HEMOGLOBIN 13.9 g/dL (12.0-18.0); LYMPH # 1.7 K/uL (1.0-4.3); LYMPH % 22.2 % (20.0-40.0); MEAN CELL VOLUME 88.3 fl (80.0-94.0); MEAN CORPUSCULAR HEMOGLOBIN 29.3 pg (27.0-31.0); MEAN CORPUSCULAR HGB CONC 33.2 g/dL (33.0-37.0); MEAN PLATELET VOLUME 7.1 fl (7.2-11.7); MONO # 0.7 K/uL (0.0-0.8); MONO % 8.8 % (0.0-10.0); NEUT # 5.3 K/uL (1.8-7.0); NEUT % 68.6 % (50.0-75.0); RBC 4.76 Mil/uL (4.40-5.90); WHITE BLOOD COUNT 7.7 K/uL (4.8-10.8)
[2017-02-27] MEDS: Insulin Regular 100 units/ml SC SCH ×3 (06:32→16:38)
[2017-02-27 06:45] LABS: BLOOD UREA NITROGEN 19 mg/dl (9-20); CALCIUM 9.5 mg/dL (8.4-10.2); GFR AFRICAN-AMERICAN > 60; GFR NON-AFRICAN AMERICAN > 60
[2017-02-27 08:31] VITALS: RESP 20
[2017-02-27] MEDS: Fluticasone-Salmeterol 250-50mcg Diskus IH SCH (08:35)
[2017-02-27] MEDS: Enoxaparin 40 mg Syringe SC SCH (08:43)
[2017-02-27] MEDS: Promethazine 12.5 mg/10 ml Syrup PO PRN ×2 (08:45→17:48)
[2017-02-27] MEDS: Pantoprazole 40 mg EC Tab PO SCH (08:45)
--- NOTE | 2017-02-27 09:30 | RAD ---
HISTORY: PNEUMONIA COMPARISON: Chest radiograph dated 02/25/2017. TECHNIQUE: Chest PA and lateral FINDINGS: LUNGS: No active pulmonary disease. PLEURA: No significant pleural effusion identified. No pneumothorax apparent. CARDIOVASCULAR: Mediastinal silhouette stably prominent. OSSEOUS STRUCTURES: Unchanged. VISUALIZED UPPER ABDOMEN: Normal. OTHER FINDINGS: None. IMPRESSION: No active disease.
[2017-02-27] MEDS: Azithromycin 500 MG in Sodium Chloride 0.9% 250 ML IVPB SCH (10:50)
[2017-02-27] MEDS ORDERED: Insulin Regular 100 units/ml SC ONE (11:01)
--- NOTE | 2017-02-27 11:01 | CP.PCM.DIS ---
Provider - Provider Date of Admission: 02/25/17 13:10 Attending physician: Jose Philippe MD Time Spent in preparation of Discharge (in minutes): 30 Diagnosis - Discharge Diagnosis (1) COPD (chronic obstructive pulmonary disease) Status: Acute (2) Pneumonia Status: Acute (3) Anxiety Status: Acute (4) CAP (community acquired pneumonia) Status: Acute (5) DVT prophylaxis Status: Acute (6) Diabetes mellitus Status: Acute (7) Hypertension Status: Acute (8) COPD exacerbation Status: Resolved Priority: Low Hospital Course - Lab Results Lab Results: Micro Results 02/26/17 10:47 Sputum Gram Stain - Final 02/26/17 10:47 Sputum Sputum Culture - Preliminary No growth. 02/25/17 07:28 Blood Blood Culture - Preliminary NO GROWTH AFTER 48 HOURS Most Recent Lab Values WBC 6.6 K/uL (4.8-10.8) 02/25/17 02:17 RBC 4.57 Mil/uL (4.40-5.90) 02/25/17 02:17 Hgb 13.1 g/dL (12.0-18.0) 02/25/17 02:17 Hct 40.6 % (35.0-51.0) 02/25/17 02:17 MCV 88.8 fl (80.0-94.0) 02/25/17 02:17 MCH 28.7 pg (27.0-31.0) 02/25/17 02:17 MCHC 32.3 g/dL (33.0-37.0) L 02/25/17 02:17 RDW 14.5 % (11.5-14.5) 02/25/17 02:17 Plt Count 229 K/uL (130-400) 02/25/17 02:17 MPV 7.2 fl (7.2-11.7) 02/25/17 02:17 Neut % (Auto) 82.8 % (50.0-75.0) H 02/25/17 02:17 Lymph % (Auto) 11.9 % (20.0-40.0) L 02/25/17 02:17 [place] % (Auto) 4.9 % (0.0-10.0) 02/25/17 02:17 Eos % (Auto) 0.0 % (0.0-4.0) 02/25/17 02:17 Baso % (Auto) 0.4 % (0.0-2.0) 02/25/17 02:17 Neut # 5.5 K/uL (1.8-7.0) 02/25/17 02:17 Lymph # 0.8 K/uL (1.0-4.3) L 02/25/17 02:17 [place] # 0.3 K/uL (0.0-0.8) 02/25/17 02:17 Eos # 0.0 K/uL (0.0-0.7) 02/25/17 02:17 Baso # 0.0 K/uL (0.0-0.2) 02/25/17 02:17 pO2 104 mm/Hg (30-55) H 02/25/17 05:26 VBG pH 7.41 (7.32-7.43) 02/25/17 05:26 VBG pCO2 44 mmHg (40-60) 02/25/17 05:26 VBG HCO3 27.1 mmol/L 02/25/17 05:26 VBG Total CO2 29.3 mmol/L (22-28) H 02/25/17 05:26 VBG O2 Sat (Calc) 99.8 % (40-65) H 02/25/17 05:26 VBG Base Excess 2.7 mmol/L (0.0-2.0) H 02/25/17 05:26 VBG Potassium 4.4 mmol/L (3.6-5.2) 02/25/17 05:26 Sodium 134.0 mmol/L (132-148) 02/25/17 05:26 Chloride 105.0 mmol/L (98-107) 02/25/17 05:26 Glucose 69 mg/dL (75-110) L 02/25/17 05:26 Lactate 1.2 mmol/L (0.7-2.1) 02/25/17 05:26 FiO2 21.0 % 02/25/17 05:26 Sodium 133 mmol/l (132-148) 02/27/17 05:55 Potassium 4.6 MMOL/L (3.6-5.0) 02/27/17 05:55 Chloride 92 mmol/L (98-107) L 02/27/17 05:55 Carbon Dioxide 35 mmol/L (22-30) H 02/27/17 05:55 Anion Gap 11 (10-20) 02/27/17 05:55 BUN 19 mg/dl (9-20) 02/27/17 05:55 Creatinine 1.1 mg/dl (0.8-1.5) 02/27/17 05:55 Est GFR ( Amer) > 60 02/27/17 05:55 Est GFR (Non-Af Amer) > 60 02/27/17 05:55 POC Glucose (mg/dL) 269 mg/dL (65-110) H 02/27/17 05:38 Random Glucose 364 mg/dL (75-110) H 02/27/17 05:55 Calcium 9.5 mg/dL (8.4-10.2) 02/27/17 05:55 Troponin I < 0.0120 ng/mL (0.00-0.120) 02/25/17 02:17 NT-Pro-B Natriuret Pep 107 pg/ml (0-900) 02/25/17 05:05 Venous Blood Potassium 4.4 mmol/L (3.6-5.2) 02/25/17 05:26 Influenza Typ A,B (EIA) Negative for flu a/b (NEGATIVE) 02/25/17 00:35 - Hospital Course Hospital Course: COUGH AND SOB IMPROVED NO CHEST PAINS NON-COMPLIANT TO RX CXR-NO ACTIVE DZ Discharge Exam - Head Exam Head Exam: ATRAUMATIC, NORMAL INSPECTION, NORMOCEPHALIC - Eye Exam Eye Exam: EOMI, Normal appearance, PERRL Pupil Exam: NORMAL ACCOMODATION, PERRL - GI/Abdominal Exam GI & Abdominal Exam: Normal Bowel Sounds - Rectal Exam Rectal Exam: NORMAL INSPECTION - Neurological Exam Neurological exam: Alert, CN II-XII Intact, Normal Gait, Oriented x3, Reflexes Normal - Psychiatric Exam Psychiatric exam: Normal Affect, Normal Mood - Skin Skin Exam: Dry, Intact, Normal Color, Warm Discharge Plan - Follow Up Plan Condition: IMPROVED Disposition: HOME/ ROUTINE Patient education suggested?: Yes Additional Instructions: DISCHARGE TODAY FOLLOW UP WITH PMD-DR NATH IN 1 WEEK
[2017-02-27 15:42] VITALS: BP 113/68; PULSE 80; TEMP 98.9; O2SAT 96
[2017-02-27] MEDS: Benzocaine/Menthol (Cepacol) Lozenge PO PRN (16:42)
[2017-02-27] MEDS: Albuterol 0.083% Inhal Sol (2.5 mg/3 mL) UD IH PRN (18:04)
== END 2017-02-27 18:45 | disposition home or self-care (01) | DRG 541 ==
LOC: H.ER 23:29 → H.ERHOLD 02-25 06:38 → H.TEL 02-25 10:39 → OBSVTOIN 02-25 13:10 → H.TEL 02-25 19:01
PROVIDERS: ADMIT Internal Medicine Pulmonary Disease; ATTEND Internal Medicine Pulmonary Disease
PROC: 3E0234Z Introduction of Serum, Toxoid and Vaccine into Muscle, Percutaneous Approach (ICD-10-PCS; principal; 2017-02-25)
PROC: 3E0F7GC Introduction of Other Therapeutic Substance into Respiratory Tract, Via Natural or Artificial Opening (ICD-10-PCS; 2017-02-25)
DX: J44.0 Chronic obstructive pulmonary disease with (acute) lower respiratory infection (principal); J18.9 Pneumonia, unspecified organism; J90 Pleural effusion, not elsewhere classified; E11.65 Type 2 diabetes mellitus with hyperglycemia; J44.1 Chronic obstructive pulmonary disease with (acute) exacerbation; Z79.899 Other long term (current) drug therapy; Z87.891 Personal history of nicotine dependence; Z91.19 Patient's noncompliance with other medical treatment and regimen; Z79.84 Long term (current) use of oral hypoglycemic drugs; E66.9 Obesity, unspecified; E78.00 Pure hypercholesterolemia, unspecified; E78.5 Hyperlipidemia, unspecified; F41.9 Anxiety disorder, unspecified; I10 Essential (primary) hypertension; Z23 Encounter for immunization

== ENCOUNTER 2017-02-28 03:27 | Emergency (ER) | payer OTHER ==
[2017-02-28 03:27] VITALS: BMI 34.4
[2017-02-28 03:53] VITALS: TEMP 98.9; O2SAT 94
[2017-02-28] MEDS ORDERED: Magnesium Sulfate 2 gm/50 ml 2 GM/50 ML BAG IV STA (04:16)
[2017-02-28] MEDS ORDERED: Albuterol-Ipratrop 3 mg / 0.5 (3 ml) UD INH STA ×2 (04:22)
[2017-02-28] MEDS ORDERED: Magnesium Sulfate 2 gm/50 ml 2 GM/50 ML BAG ONE (04:22)
[2017-02-28] MEDS ORDERED: Albuterol-Ipratrop 3 mg / 0.5 (3 ml) UD ONE (04:25)
--- NOTE | 2017-02-28 04:39 | ED PDOC ---
HPI: SOB/CHF/COPD Time Seen by Provider: 02/28/17 03:35 Chief Complaint (Nursing): Chest Pain Chief Complaint (Provider): shortness of breath History Per: Patient History/Exam Limitations: no limitations Onset/Duration Of Symptoms: Days (x1) Current Symptoms Are (Timing): Still Present Additional Complaint(s): 62 year old male with previous medical history of COPD, who presents to the emergency department with a complaint of shortness of breath associated with chest tightness and dry cough ongoing for 1 day. Patient was recently discharged from hospital for pneumonia and reported using his Advair without relief of symptoms. Denied any further medical complaints. PMD: none provided Past Medical History Reviewed: Historical Data, Nursing Documentation, Vital Signs Vital Signs: Last Vital Signs Temp 98.9 F 02/28/17 03:42 Pulse 99 H 02/28/17 05:49 Resp 16 02/28/17 05:49 BP 123/78 02/28/17 05:49 Pulse Ox 94 L 02/28/17 05:49 - Medical History PMH: Anxiety, Bronchitis, COPD, Diabetes, HTN, Hypercholesterolemia Denies: Hepatitis, HIV, Chronic Kidney Disease, Seizures, Sexually Transmitted Disease - Surgical History Surgical History: Appendectomy - Family History Family History: States: Unknown Family Hx - Social History Current smoker - smoking cessation education provided: No Alcohol: None Drugs: Denies - Immunization History Hx Tetanus Toxoid Vaccination: No Hx Influenza Vaccination: No Hx Pneumococcal Vaccination: No - Home Medications Home Medications: Ambulatory Orders Medication Instructions Recorded Acetaminophen [Athenol] 650 mg PO Q8 PRN 02/06/17 Clonazepam [Klonopin] 0.5 mg PO TID 02/06/17 DiphenhydrAMINE [Benadryl] 50 mg PO DAILY PRN 02/06/17 Ibuprofen [Motrin Tab] 600 mg PO BID PRN 02/06/17 Loratadine [Allergy Relief] 10 mg PO DAILY PRN 02/06/17 Albuterol Sulfate [Proair Hfa] 1 inh INH PRN PRN #1 inhaler 02/07/17 Atorvastatin Calcium [Lipitor] 80 mg PO DAILY #30 tablet 02/07/17 DULoxetine [Cymbalta] 20 mg PO DAILY #30 ecc 02/07/17 Hydroxyzine HCl 25 mg PO BID PRN #60 tablet 02/07/17 Insulin Glargine,Hum.rec.anlog 44 units SC BID #30 insuln.pen 02/07/17 [Lantus Solostar] Lisinopril [Zestril] 20 mg PO DAILY #30 tab 02/07/17 Metformin HCl [Glucophage] 1,000 mg PO BID #60 tablet 02/07/17 Omeprazole 20 mg PO DAILY #60 tablet.dr 02/07/17 amLODIPine [Norvasc] 5 mg PO DAILY #30 tab 02/07/17 Fluticasone/Salmeterol 250/50 1 puff IH Q12 #1 puff 02/15/17 [Advair Diskus 250/50] Albuterol 0.083% [Albuterol 0.083% 2.5 mg IH QID PRN #20 02/19/17 Inhal Kaykay (2.5 mg/3 ml) UD] Insulin Aspart [Novolog Flexpen] 16 units SC TID 02/19/17 Levofloxacin [Levaquin] 500 mg PO DAILY #7 tablet 02/27/17 Promethazine [Phenergan Syrup] 12.5 mg PO Q6 PRN dose 02/27/17 - Allergies Allergies/Adverse Reactions: Allergies Allergy/AdvReac Type Severity Reaction Status Date / Time No Known Allergies Allergy Verified 02/08/17 21:40 Review of Systems ROS Statement: Except As Marked, All Systems Reviewed And Found Negative Cardiovascular: Positive for: Chest Pain (tightness) Respiratory: Positive for: Cough (dry), Shortness of Breath Physical Exam - Reviewed Nursing Documentation Reviewed: Yes Vital Signs Reviewed: Yes - Physical Exam Appears: Positive for: Non-toxic, Uncomfortable Head Exam: Positive for: ATRAUMATIC, NORMAL INSPECTION, NORMOCEPHALIC Skin: Positive for: Normal Color Eye Exam: Positive for: Normal appearance ENT: Positive for: Normal ENT Inspection Neck: Positive for: Normal, Painless ROM Cardiovascular/Chest: Positive for: Regular Rate, Rhythm, Chest Non Tender Respiratory: Positive for: Wheezing (expiratory bilaterally), Respiratory Distress (mild). Negative for: Normal Breath Sounds Gastrointestinal/Abdominal: Positive for: Normal Exam, Soft. Negative for: Tenderness Neurologic/Psych: Positive for: Alert (x3), Oriented - Laboratory Results Result Diagrams: 02/28/17 04:30 02/28/17 04:30 - ECG O2 Sat by Pulse Oximetry: 94 (RA) Pulse Ox Interpretation: Normal Medical Decision Making Medical Decision Making: Initial Impression: Shortness of breath Initial Plan: * EKG * CMP * Troponin I * CBC * PTT * PT * Duoneb 3ml INH * Magnesium sulfate 2gm in 50ml * Solu-medrol 125mg IVP * Blood culture * Influenza A B Time: 0600 --Labs: elevated blood sugar --steroid use hypertension --Upon provider reevaluation, patient is feeling better, medically stable and requires no further treatment in the ED at this time. Provider enforced need to refill medications for COPD and to stay compliant. Patient will be discharged home. Counseling was provided and all questions were answered regarding diagnosis. There is agreement to discharge plan. Return if symptoms persist or worsen. Clinical Impression: COPD Scribe Attestation: Documented by Kaci Amor, acting as a scribe for Sukhwinder Tripp MD. Provider Scribe Attestation: All medical record entries made by the Scribe were at my direction and personally dictated by me. I have reviewed the chart and agree that the record accurately reflects my personal performance of the history, physical exam, medical decision making, and the department course for this patient. I have also personally directed, reviewed, and agree with the discharge instructions and disposition. Disposition - Clinical Impression Clinical Impression: COPD (chronic obstructive pulmonary disease) - Patient ED Disposition Is Patient to be Admitted: No Counseled Patient/Family Regarding: Studies Performed, Diagnosis, Need For Followup - Disposition Disposition: Routine/Home Disposition Time: 06:00 Condition: IMPROVED Instructions: COPD (Chronic Obstructive Pulmonary Disease) (ED) Forms: [facility] (Welsh) Critical Care Time - Critical Care Note Total Time (in mins): 30 Documented critical care: time excludes all time spent performing seperately billable procedures.
[2017-02-28] MEDS: Albuterol-Ipratrop 3 mg / 0.5 (3 ml) UD INH STA ×2 (04:55→04:56)
[2017-02-28 05:00] LABS: BASO % 0.4 % (0.0-2.0); EOS % 0.5 % (0.0-4.0); HEMOGLOBIN 13.7 g/dL (12.0-18.0); LYMPH # 1.4 K/uL (1.0-4.3); LYMPH % 23.2 % (20.0-40.0); MEAN CELL VOLUME 87.9 fl (80.0-94.0); MEAN CORPUSCULAR HEMOGLOBIN 29.6 pg (27.0-31.0); MEAN CORPUSCULAR HGB CONC 33.7 g/dL (33.0-37.0); MEAN PLATELET VOLUME 7.3 fl (7.2-11.7); MONO # 0.6 K/uL (0.0-0.8); MONO % 9.8 % (0.0-10.0); NEUT # 3.9 K/uL (1.8-7.0); NEUT % 66.1 % (50.0-75.0); NRBC % 0.1 % (0.0-0.0); RBC 4.65 Mil/uL (4.40-5.90); RED CELL DISTRIBUTION WIDTH 13.7 % (11.5-14.5); WHITE BLOOD COUNT 5.8 K/uL (4.8-10.8)
[2017-02-28 05:10] LABS: PARTIAL THROMBOPLASTIN TIME 29.8 Seconds (25.6-37.1)
[2017-02-28 05:17] LABS: ALB/GLOB RATIO 1.2 (1.0-2.1); ALBUMIN 3.7 g/dL (3.5-5.0); ALT/SGPT 74 U/L (21-72); AST/SGOT 28 U/L (17-59); BLOOD UREA NITROGEN 28 mg/dl (9-20); CALCIUM 9.4 mg/dL (8.4-10.2); GFR AFRICAN-AMERICAN > 60; GFR NON-AFRICAN AMERICAN > 60
[2017-02-28] MEDS ORDERED: Insulin Regular 100 units/ml IV ONE (05:20)
[2017-02-28] MEDS ORDERED: Insulin Regular 100 units/ml ONE (05:27)
[2017-02-28 05:50] VITALS: BP 123/78; PULSE 99; RESP 16
--- NOTE | 2017-02-28 16:46 | CARD ---
APPROVED REPORT EKG Measurement Heart [id number] <Conclusion> Sinus tachycardia Otherwise normal ECG
== END 2017-02-28 06:58 | disposition home or self-care (01) ==
LOC: H.ER 03:27
DX: J44.9 Chronic obstructive pulmonary disease, unspecified (principal); E11.9 Type 2 diabetes mellitus without complications; Z79.4 Long term (current) use of insulin; E78.00 Pure hypercholesterolemia, unspecified; F41.9 Anxiety disorder, unspecified; I10 Essential (primary) hypertension
CPT/HCPCS: 80053; 84484; 85025; 85610; 85730; 87040; 87804; 93005; 94640; 96374; 99283; J2930

== ENCOUNTER 2017-03-07 22:06 | Emergency (ER) | payer OTHER ==
[2017-03-07 22:07] VITALS: BMI 34.4
[2017-03-07 22:21] VITALS: BP 130/79; PULSE 91; RESP 22; TEMP 98.1; O2SAT 95
--- NOTE | 2017-03-07 23:09 | ED PDOC ---
HPI: SOB/CHF/COPD Time Seen by Provider: 03/07/17 22:47 Chief Complaint (Nursing): Shortness Of Breath Chief Complaint (Provider): Dyspnea History Per: Patient History/Exam Limitations: no limitations Onset/Duration Of Symptoms: Days (3 months) Current Symptoms Are (Timing): Still Present Additional Complaint(s): Pt. with wheezes, chest tightness. Cough, green phlegm. No abd pain, nausea, vomit, diarrhea, weakness. Tried steroid and inhalers and not helping. Pt. has had similar several times and admitted for pneumonia in the past. Feels like his copd exacerbation. No fever. Past Medical History Vital Signs: Last Vital Signs Temp 98.1 F 03/07/17 22:19 Pulse 91 H 03/07/17 22:19 Resp 22 03/07/17 22:19 BP 130/79 03/07/17 22:19 Pulse Ox 95 03/07/17 23:13 - Medical History PMH: Anxiety, Bronchitis, COPD, Diabetes, HTN, Hypercholesterolemia Denies: Hepatitis, HIV, Chronic Kidney Disease, Seizures, Sexually Transmitted Disease - Surgical History Surgical History: Appendectomy - Family History Family History: States: Unknown Family Hx - Social History Alcohol: None Drugs: Denies - Immunization History Hx Tetanus Toxoid Vaccination: No Hx Influenza Vaccination: No Hx Pneumococcal Vaccination: No - Home Medications Home Medications: Ambulatory Orders Medication Instructions Recorded Acetaminophen [Athenol] 650 mg PO Q8 PRN 02/06/17 Clonazepam [Klonopin] 0.5 mg PO TID 02/06/17 DiphenhydrAMINE [Benadryl] 50 mg PO DAILY PRN 02/06/17 Ibuprofen [Motrin Tab] 600 mg PO BID PRN 02/06/17 Loratadine [Allergy Relief] 10 mg PO DAILY PRN 02/06/17 Albuterol Sulfate [Proair Hfa] 1 inh INH PRN PRN #1 inhaler 02/07/17 Atorvastatin Calcium [Lipitor] 80 mg PO DAILY #30 tablet 02/07/17 DULoxetine [Cymbalta] 20 mg PO DAILY #30 ecc 02/07/17 Hydroxyzine HCl 25 mg PO BID PRN #60 tablet 02/07/17 Insulin Glargine,Hum.rec.anlog 44 units SC BID #30 insuln.pen 02/07/17 [Lantus Solostar] Lisinopril [Zestril] 20 mg PO DAILY #30 tab 02/07/17 Metformin HCl [Glucophage] 1,000 mg PO BID #60 tablet 02/07/17 Omeprazole 20 mg PO DAILY #60 tablet. 02/07/17 amLODIPine [Norvasc] 5 mg PO DAILY #30 tab 02/07/17 Fluticasone/Salmeterol 250/50 1 puff IH Q12 #1 puff 02/15/17 [Advair Diskus 250/50] Albuterol 0.083% [Albuterol 0.083% 2.5 mg IH QID PRN #20 02/19/17 Inhal Kaykay (2.5 mg/3 ml) UD] Insulin Aspart [Novolog Flexpen] 16 units SC TID 02/19/17 Levofloxacin [Levaquin] 500 mg PO DAILY #7 tablet 02/27/17 Promethazine [Phenergan Syrup] 12.5 mg PO Q6 PRN dose 02/27/17 - Allergies Allergies/Adverse Reactions: Allergies Allergy/AdvReac Type Severity Reaction Status Date / Time No Known Allergies Allergy Verified 02/08/17 21:40 Review of Systems ROS Statement: Except As Marked, All Systems Reviewed And Found Negative ENT: Positive for: Nose Congestion Cardiovascular: Positive for: Chest Pain Respiratory: Positive for: Cough, Shortness of Breath, SOB with Exertion, Sputum , Wheezing Physical Exam - Reviewed Nursing Documentation Reviewed: Yes Vital Signs Reviewed: Yes - Physical Exam Appears: Positive for: Uncomfortable Head Exam: Positive for: ATRAUMATIC, NORMAL INSPECTION, NORMOCEPHALIC Skin: Positive for: Normal Color, Warm, DRY Eye Exam: Positive for: EOMI, Normal appearance, PERRL ENT: Positive for: Nasal Congestion. Negative for: Pharyngeal Erythema, Tonsillar Exudate Neck: Positive for: Normal, Painless ROM, Supple Cardiovascular/Chest: Positive for: Regular Rate, Rhythm Respiratory: Positive for: Wheezing. Negative for: Accessory Muscle Use Gastrointestinal/Abdominal: Positive for: Normal Exam, Bowel Sounds, Soft. Negative for: Tenderness Back: Positive for: Normal Inspection. Negative for: L CVA Tenderness, R CVA Tenderness Extremity: Positive for: Normal ROM. Negative for: Tenderness, Pedal Edema Neurologic/Psych: Positive for: Alert, Oriented. Negative for: Motor/Sensory Deficits - ECG O2 Sat by Pulse Oximetry: 95 - Progress ED Course And Treament: 2355: Stable. AAOx3. Dr. Palma to take over care. FU on labs, imaging. Disposition - Clinical Impression Clinical Impression: COPD (chronic obstructive pulmonary disease) - Patient ED Disposition Is Patient to be Admitted: Transfer of Care - Disposition Disposition Time: 00:06 Condition: STABLE Patient Signed Over To: Riki Palma
[2017-03-08] MEDS ORDERED: Magnesium Sulfate 2 gm/50 ml 2 GM/50 ML BAG ONE (00:13)
[2017-03-08] MEDS ORDERED: Albuterol-Ipratrop 3 mg / 0.5 (3 ml) UD ONE (00:13)
[2017-03-08] MEDS: Albuterol-Ipratrop 3 mg / 0.5 (3 ml) UD INH STA (00:16)
[2017-03-08] MEDS: Albuterol-Ipratrop 3 mg / 0.5 (3 ml) UD IH STA ×2 (00:30→00:42)
[2017-03-08] MEDS: Sodium Chloride 0.9% 1,000 ML IV STA (00:35)
[2017-03-08] MEDS: Magnesium Sulfate 2 gm/50 ml 2 GM/50 ML BAG IVPB ONE (00:39)
[2017-03-08 00:42] LABS: VENOUS BLOOD GAS BASE EXCESS 2.4 mmol/L (0.0-2.0); VENOUS BLOOD GAS PCO2 42 mmHg (40-60); VENOUS BLOOD GAS PO2 83 mm/Hg (30-55); VENOUS BLOOD PH 7.42 (7.32-7.43)
[2017-03-08 00:56] LABS: BASO % 0.3 % (0.0-2.0); EOS % 0.5 % (0.0-4.0); HEMOGLOBIN 12.2 g/dL (12.0-18.0); LYMPH # 1.3 K/uL (1.0-4.3); LYMPH % 15.9 % (20.0-40.0); MEAN CELL VOLUME 87.1 fl (80.0-94.0); MEAN CORPUSCULAR HEMOGLOBIN 28.9 pg (27.0-31.0); MEAN CORPUSCULAR HGB CONC 33.1 g/dL (33.0-37.0); MEAN PLATELET VOLUME 6.9 fl (7.2-11.7); MONO # 0.4 K/uL (0.0-0.8); MONO % 5.1 % (0.0-10.0); NEUT # 6.5 K/uL (1.8-7.0); NEUT % 78.2 % (50.0-75.0); NRBC % 0.1 % (0.0-0.0); RBC 4.22 Mil/uL (4.40-5.90); RED CELL DISTRIBUTION WIDTH 14.1 % (11.5-14.5); WHITE BLOOD COUNT 8.3 K/uL (4.8-10.8)
[2017-03-08 01:08] LABS: INR 0.9 (0.9-1.2); PROTHROMBIN TIME 9.9 Seconds (9.8-13.1)
[2017-03-08 01:14] LABS: ALB/GLOB RATIO 1.2 (1.0-2.1); ALBUMIN 3.2 g/dL (3.5-5.0); ALT/SGPT 40 U/L (21-72); AST/SGOT 24 U/L (17-59); BLOOD UREA NITROGEN 19 mg/dl (9-20); CALCIUM 9.4 mg/dL (8.4-10.2); GFR AFRICAN-AMERICAN > 60; GFR NON-AFRICAN AMERICAN > 60
[2017-03-08 01:17] LABS: B-TYPE NATRIURETIC PEPTIDE 133 pg/ml (0-900)
--- NOTE | 2017-03-08 02:27 | ED PDOC ---
- Laboratory Results Result Diagrams: 03/08/17 00:48 03/08/17 00:48 - ECG O2 Sat by Pulse Oximetry: 95 Medical Decision Making Medical Decision Making: Time: 00:00 --Patient signed over to me by Dr. Guillen pending reevaluation. Time: 02:30 Upon provider evaluation patient is no longer wheezing, feels better, and requires no further treatment in the ED at this time. Patient will be discharged with Rx for Prednisone. Counseling was provided and all questions were answered regarding diagnosis and need for follow up with PMD in [place]. There is agreement to discharge plan. Return if symptoms persist or worsen. Scribe Attestation: Documented by Edmond Isabel, acting as a scribe for Riki Palma MD. Provider Scribe Attestation: All medical record entries made by the Scribe were at my direction and personally dictated by me. I have reviewed the chart and agree that the record accurately reflects my personal performance of the history, physical exam, medical decision making, and the department course for this patient. I have also personally directed, reviewed, and agree with the discharge instructions and disposition. Disposition Counseled Patient/Family Regarding: Studies Performed, Diagnosis, Need For Followup - Clinical Impression Clinical Impression: COPD (chronic obstructive pulmonary disease) - POA Present On Arrival: None - Disposition Referrals: [facility] [Outside] Disposition: Routine/Home Disposition Time: 02:30 Condition: STABLE Additional Instructions: Please follow up with your primary care doctor in [place] in 1 - 2 days. Prescriptions: predniSONE [predniSONE Tab] 40 mg PO DAILY 3 Days tab Instructions: Weight Management (ED), COPD (Chronic Obstructive Pulmonary Disease) (ED), Obesity (DC) Forms: [employer] (Belarusian)
--- NOTE | 2017-03-08 08:56 | RAD ---
HISTORY: dyspnea COMPARISON: Chest radiographs 02/27/2017. FINDINGS: LUNGS: Penetration of the left base difficult due to cardiomegaly. Is done limited left basilar infiltrate is difficult to exclude at this time. Remaining lung mena appear clear. PLEURA: No significant pleural effusion identified, no pneumothorax apparent. CARDIOVASCULAR: Prominent cardiac silhouette is reiterated suggesting stable cardiomegaly with limited pulmonary vascular derangement appreciated. OSSEOUS STRUCTURES: No significant abnormalities. VISUALIZED UPPER ABDOMEN: Normal. OTHER FINDINGS: None. IMPRESSION: Mild pulmonary vascular derangement appreciated. Limited left basilar atelectasis or infiltrate is difficult to exclude. None is seen at the right.
--- NOTE | 2017-03-09 11:20 | CARD ---
APPROVED REPORT EKG Measurement Heart [id number] OR [id number] <Conclusion> Normal sinus rhythm Normal ECG
== END 2017-03-08 03:47 | disposition home or self-care (01) ==
LOC: H.ER 22:06
DX: J44.9 Chronic obstructive pulmonary disease, unspecified (principal)
CPT/HCPCS: 71045; 80053; 82803; 83880; 84484; 85025; 85610; 85730; 87040; 93005; 94640; 96365; 96375; 99282; J2930; J7040

== ENCOUNTER 2017-03-12 08:46 | Emergency (ER) | payer OTHER ==
[2017-03-12 08:46] VITALS: BMI 34.4
[2017-03-12 09:17] VITALS: RESP 18
--- NOTE | 2017-03-12 09:58 | ED PDOC ---
HPI: SOB/CHF/COPD Time Seen by Provider: 03/12/17 09:10 Chief Complaint (Nursing): Shortness Of Breath Chief Complaint (Provider): Shortness Of Breath History Per: Patient History/Exam Limitations: no limitations Onset/Duration Of Symptoms: Days Current Symptoms Are (Timing): Still Present Additional Complaint(s): 62 year old male presents to the emergency department with shortness of breath in setting of known chronic obstructive pulmonary disease (COPD) associated with chest tightness. Reports he also had a cough, cold, and congestion x2 months. States he injected 25 units of Novolog about an hour ago because his blood sugar was 533 this morning when he checked. Patient went to the emergency department in a hospital located in [place] and stayed a total of 10 hours with treatment and then discharged home. Denies any further medical complaints, history of heart failure, or stroke. Of note, patient is well known to the provider and was seen in this emergency department multiple times and diagnosed for the same symptoms. Patient was seen on 02/25/2017 for COPD, chest pain, and pneumonia with admission for cardiac monitoring to rule out acute coronary syndrome (ACS) under the care of Dr. Jose Philippe MD. Patient was also seen here on and 03/07/2017 for the same reasons and discharged home with medications for COPD. PMD: Dr. Jn Emmanuel MD ([place]) Past Medical History Reviewed: Historical Data, Nursing Documentation, Vital Signs Vital Signs: Last Vital Signs Temp 98 F 03/12/17 09:11 Pulse 97 H 03/12/17 09:11 Resp 18 03/12/17 09:11 BP Pulse Ox 97 03/12/17 12:00 - Medical History PMH: Anxiety, Asthma, Bronchitis, COPD, Diabetes, HTN, Hypercholesterolemia Denies: Hepatitis, HIV, Chronic Kidney Disease, Seizures, Sexually Transmitted Disease - Surgical History Surgical History: Appendectomy - Family History Family History: States: Unknown Family Hx - Social History Current smoker - smoking cessation education provided: No Ex-Smoker (has not smoked in the last 12 months): Yes Alcohol: None Drugs: Denies - Immunization History Hx Tetanus Toxoid Vaccination: No Hx Influenza Vaccination: No Hx Pneumococcal Vaccination: No - Home Medications Home Medications: Ambulatory Orders Medication Instructions Recorded Clonazepam [Klonopin] 0.5 mg PO TID 12/24/17 Ibuprofen [Motrin Tab] 600 mg PO BID PRN 02/06/17 Atorvastatin Calcium [Lipitor] 80 mg PO DAILY #30 tablet 02/07/17 DULoxetine [Cymbalta] 20 mg PO DAILY #30 ecc 02/07/17 Insulin Glargine,Hum.rec.anlog 44 units SC BID #30 insuln.pen 02/07/17 [Lantus Solostar] Lisinopril [Zestril] 20 mg PO DAILY #30 tab 02/07/17 Metformin HCl [Glucophage] 1,000 mg PO BID #60 tablet 02/07/17 Omeprazole 20 mg PO DAILY #60 tablet.dr 02/07/17 amLODIPine [Norvasc] 5 mg PO DAILY #30 tab 02/07/17 Fluticasone/Salmeterol 250/50 1 puff IH Q12 #1 puff 02/15/17 [Advair Diskus 250/50] Albuterol 0.083% [Albuterol 0.083% 2.5 mg IH QID PRN #20 02/19/17 Inhal Kaykay (2.5 mg/3 ml) UD] Albuterol Sulfate [Proair Hfa] 0.09 mg IH Q6H PRN #2 inh 03/12/17 Insulin Aspart [Novolog Flexpen] 20 units SC TID 03/12/17 predniSONE [predniSONE Tab] 20 mg PO BID 5 Days tab 03/12/17 - Allergies Allergies/Adverse Reactions: Allergies Allergy/AdvReac Type Severity Reaction Status Date / Time No Known Allergies Allergy Verified 02/08/17 21:40 Review of Systems ROS Statement: Except As Marked, All Systems Reviewed And Found Negative (As per HPI, otherwise negative) ENT: Positive for: Nose Congestion Cardiovascular: Positive for: Other (Chest tightness) Respiratory: Positive for: Cough, Shortness of Breath Physical Exam - Reviewed Nursing Documentation Reviewed: Yes Vital Signs Reviewed: Yes - Physical Exam Appears: Positive for: No Acute Distress Head Exam: Positive for: NORMAL INSPECTION Skin: Positive for: Normal Color, Warm, Dry Eye Exam: Positive for: Normal appearance, EOMI, PERRL ENT: Positive for: Nasal Congestion Cardiovascular/Chest: Positive for: Regular Rate, Rhythm. Negative for: Murmur Respiratory: Positive for: Decreased Breath Sounds, Wheezing (Mild). Negative for: Accessory Muscle Use, Respiratory Distress Gastrointestinal/Abdominal: Positive for: Normal Exam, Soft. Negative for: Tenderness Back: Positive for: Normal Inspection. Negative for: L CVA Tenderness, R CVA Tenderness Extremity: Positive for: Normal ROM. Negative for: Tenderness, Pedal Edema, Calf Tenderness Neurologic/Psych: Positive for: Alert, Oriented (x3) - Laboratory Results Result Diagrams: 03/12/17 10:10 03/12/17 10:10 Interpretation Of Abn Labs: elevated sugar - ECG ECG: Positive for: Interpreted By Me, Viewed By Me ECG Rhythm: Positive for: Normal QRS, Normal ST Segment, Sinus Rhythm O2 Sat by Pulse Oximetry: 97 (RA) Pulse Ox Interpretation: Normal - Radiology X-Ray: Interpreted by Me, Viewed By Me, Read By Radiologist X-Ray Interpretation: No Acute Disease - Progress ED Course And Treament: 1235: 224 blood sugar. Feels much better. Oxygen level maintained well. Tolerated PO. AAOx3. Ambulated with no issues. State he did not have money to get his inhaler (so not used). Medical Decision Making Medical Decision Making: Time: 09:30 Initial Impression: Shortness of breath in setting of known COPD Initial Plan: --EKG --B-Type Natriuretic Peptide --CMP --Troponin I --CBC w/ diff --Chest portable --3 treatments of [place] 3 ml IH --Toradol 15 mg IVP --Methylprednisolone 125 mg IVP --Sodium Chloride 500 ml IV --Neb treatment --Reevaluation --AccuCheck in ED: >500 (High) Time: 10:36 --Chest x-ray LUNGS: Mild bibasilar atelectasis right greater than left. Developing lower lobe infiltrate could be excluded followup radiographs. . . Slight blunting left CP angle could be due pleural thickening or small effusion PLEURA: As above. No pneumothorax apparent. CARDIOVASCULAR: Heart is enlarged. OSSEOUS STRUCTURES: No significant abnormalities. VISUALIZED UPPER ABDOMEN: Normal. OTHER FINDINGS: None. IMPRESSION: Mild bibasilar atelectasis right greater than left. Developing lower lobe infiltrate could be excluded followup radiographs. . . Slight blunting left CP angle could be due pleural thickening or small effusion Scribe Attestation: Documented by Rita Bolivar, acting as a scribe for Cruz Guillen MD. Provider Scribe Attestation: All medical record entries made by the Scribe were at my direction and personally dictated by me. I have reviewed the chart and agree that the record accurately reflects my personal performance of the history, physical exam, medical decision making, and the department course for this patient. I have also personally directed, reviewed, and agree with the discharge instructions and disposition. Disposition - Clinical Impression Clinical Impression: COPD (chronic obstructive pulmonary disease) - Patient ED Disposition Is Patient to be Admitted: No Counseled Patient/Family Regarding: Studies Performed, Diagnosis, Need For Followup, Rx Given - Disposition Referrals: [facility] [Outside] - 03/14/17 Disposition: Routine/Home Disposition Time: 12:38 Condition: STABLE Additional Instructions: Return if not better in 3 days. Prescriptions: Albuterol Sulfate [Proair Hfa] 0.09 mg IH Q6H PRN #2 inh PRN Reason: Wheezing predniSONE [predniSONE Tab] 20 mg PO BID 5 Days tab Instructions: COPD (Chronic Obstructive Pulmonary Disease) (ED)
[2017-03-12] MEDS ORDERED: Sodium Chloride 0.9% 500 ML IV STA (10:02)
[2017-03-12] MEDS ORDERED: Albuterol-Ipratrop 3 mg / 0.5 (3 ml) UD INH STA (10:02)
[2017-03-12] MEDS ORDERED: Albuterol-Ipratrop 3 mg / 0.5 (3 ml) UD IH STA ×2 (10:02→10:03)
[2017-03-12] MEDS ORDERED: Albuterol-Ipratrop 3 mg / 0.5 (3 ml) UD ONE (10:17)
--- NOTE | 2017-03-12 10:38 | RAD ---
HISTORY: dyspnea COMPARISON: Comparison made with chest radiograph dated 03/07/2017. FINDINGS: LUNGS: Mild bibasilar atelectasis right greater than left. Developing lower lobe infiltrate could be excluded followup radiographs. . . Slight blunting left CP angle could be due pleural thickening or small effusion PLEURA: As above. No pneumothorax apparent. CARDIOVASCULAR: Heart is enlarged. OSSEOUS STRUCTURES: No significant abnormalities. VISUALIZED UPPER ABDOMEN: Normal. OTHER FINDINGS: None. IMPRESSION: Mild bibasilar atelectasis right greater than left. Developing lower lobe infiltrate could be excluded followup radiographs. . . Slight blunting left CP angle could be due pleural thickening or small effusion
[2017-03-12 10:40] LABS: BASO # 0.1 K/uL (0.0-0.2); BASO % 0.8 % (0.0-2.0); EOS % 0.2 % (0.0-4.0); HEMOGLOBIN 12.7 g/dL (12.0-18.0); LYMPH # 1.2 K/uL (1.0-4.3); LYMPH % 15.4 % (20.0-40.0); MEAN CELL VOLUME 87.5 fl (80.0-94.0); MEAN CORPUSCULAR HEMOGLOBIN 28.4 pg (27.0-31.0); MEAN CORPUSCULAR HGB CONC 32.5 g/dL (33.0-37.0); MEAN PLATELET VOLUME 7.2 fl (7.2-11.7); MONO # 0.5 K/uL (0.0-0.8); MONO % 6.7 % (0.0-10.0); NEUT % 76.9 % (50.0-75.0); RBC 4.46 Mil/uL (4.40-5.90); RED CELL DISTRIBUTION WIDTH 14.1 % (11.5-14.5); WHITE BLOOD COUNT 7.8 K/uL (4.8-10.8)
[2017-03-12 11:01] LABS: ALB/GLOB RATIO 1.2 (1.0-2.1); ALBUMIN 3.5 g/dL (3.5-5.0); ALT/SGPT 31 U/L (21-72); AST/SGOT 21 U/L (17-59); B-TYPE NATRIURETIC PEPTIDE 142 pg/ml (0-900); BLOOD UREA NITROGEN 16 mg/dl (9-20); CALCIUM 9.1 mg/dL (8.4-10.2); GFR AFRICAN-AMERICAN > 60; GFR NON-AFRICAN AMERICAN > 60
[2017-03-12 13:37] VITALS: BP 130/78; PULSE 80; TEMP 97.4; O2SAT 98
== END 2017-03-12 13:44 | disposition home or self-care (01) ==
LOC: H.ER 08:46
DX: J44.9 Chronic obstructive pulmonary disease, unspecified (principal); E11.9 Type 2 diabetes mellitus without complications; E78.00 Pure hypercholesterolemia, unspecified; I10 Essential (primary) hypertension; Z79.4 Long term (current) use of insulin
CPT/HCPCS: 71045; 80053; 82948; 83880; 84484; 85025; 94640; 96374; 96375; 99283; J1885; J2930; J7040

== ENCOUNTER 2017-03-23 10:24 | Emergency (ER) | payer OTHER ==
[2017-03-23 10:25] VITALS: BMI 34.4
[2017-03-23 10:30] VITALS: O2SAT 96
--- NOTE | 2017-03-23 11:08 | ED PDOC ---
HPI: CCC, URI, Sore Throat Time Seen by Provider: 03/23/17 10:47 Chief Complaint (Nursing): Headache Chief Complaint (Provider): Runny Nose, Sneezing, Throat Tickling History Per: Patient History/Exam Limitations: no limitations Onset/Duration Of Symptoms: Days (x 3) Current Symptoms Are (Timing): Still Present Additional Complaint(s): Adonis is a 62 y/o male who presents to the ED complaining of runny nose, sneezing, and throat tickling for the past 3 days with associate nonproductive cough. He denies fever, chest pain, or shortness of breath. PMD: None Provided Past Medical History Reviewed: Historical Data, Nursing Documentation, Vital Signs Vital Signs: Last Vital Signs Temp 98 F 03/23/17 12:31 Pulse 80 03/23/17 12:31 Resp 18 03/23/17 12:31 BP 128/78 03/23/17 12:31 Pulse Ox 96 03/23/17 12:13 - Medical History PMH: Anxiety, Asthma, Bronchitis, COPD, Diabetes, HTN, Hypercholesterolemia Denies: Hepatitis, HIV, Chronic Kidney Disease, Seizures, Sexually Transmitted Disease - Surgical History Surgical History: Appendectomy - Family History Family History: States: Unknown Family Hx - Immunization History Hx Tetanus Toxoid Vaccination: No Hx Influenza Vaccination: No Hx Pneumococcal Vaccination: No - Home Medications Home Medications: Ambulatory Orders Medication Instructions Recorded Clonazepam [Klonopin] 0.5 mg PO TID 02/06/17 Ibuprofen [Motrin Tab] 600 mg PO BID PRN 02/06/17 Atorvastatin Calcium [Lipitor] 80 mg PO DAILY #30 tablet 02/07/17 DULoxetine [Cymbalta] 20 mg PO DAILY #30 ecc 02/07/17 Insulin Glargine,Hum.rec.anlog 44 units SC BID #30 insuln.pen 02/07/17 [Lantus Solostar] Lisinopril [Zestril] 20 mg PO DAILY #30 tab 02/07/17 Metformin HCl [Glucophage] 1,000 mg PO BID #60 tablet 02/07/17 Omeprazole 20 mg PO DAILY #60 tablet. 02/07/17 amLODIPine [Norvasc] 5 mg PO DAILY #30 tab 02/07/17 Fluticasone/Salmeterol 250/50 1 puff IH Q12 #1 puff 02/15/17 [Advair Diskus 250/50] Albuterol 0.083% [Albuterol 0.083% 2.5 mg IH QID PRN #20 02/19/17 Inhal Kaykay (2.5 mg/3 ml) UD] Albuterol Sulfate [Proair Hfa] 0.09 mg IH Q6H PRN #2 inh 03/12/17 Insulin Aspart [Novolog Flexpen] 20 units SC TID 03/12/17 predniSONE [predniSONE Tab] 20 mg PO BID 5 Days tab 03/12/17 Albuterol HFA [Ventolin HFA 90 2 puff IH [id number] PRN #1 bottle 03/23/17 mcg/actuation (8 g)] Loratadine [Claritin] 10 mg PO DAILY PRN #10 tab 03/23/17 - Allergies Allergies/Adverse Reactions: Allergies Allergy/AdvReac Type Severity Reaction Status Date / Time No Known Allergies Allergy Verified 02/08/17 21:40 Review of Systems ROS Statement: Except As Marked, All Systems Reviewed And Found Negative Constitutional: Negative for: Fever ENT: Positive for: Nose Discharge, Throat Pain (tickling) Cardiovascular: Negative for: Chest Pain Respiratory: Positive for: Cough (non-productive). Negative for: Shortness of Breath Physical Exam - Reviewed Nursing Documentation Reviewed: Yes Vital Signs Reviewed: Yes - Physical Exam Appears: Positive for: Well (speaking full sentences), Non-toxic, No Acute Distress ENT: Positive for: Pharynx Is (clear), Nasal Congestion Cardiovascular/Chest: Positive for: Regular Rate, Rhythm. Negative for: Murmur Respiratory: Positive for: Normal Breath Sounds. Negative for: Respiratory Distress Neurologic/Psych: Positive for: Alert, Oriented - ECG O2 Sat by Pulse Oximetry: 96 (RA) Pulse Ox Interpretation: Normal Medical Decision Making Medical Decision Making: Time: 11:03 Initial Impression: URI Initial Plan: --Chest XR --Flu Swab --Rapid Strep Accession No. : [id number] Patient Name / ID : SEAN MARIN / [id number] Exam Date : 03/23/2017 11:18:42 ( Approved ) Study Comment : Sex / Age : M / 62Y Creator : Alyssa Marrero MD Dictator : Alyssa Marrero MD Mailing Machine Helper : Senior Bioinformatics Scientist : Alyssa Marrero MD Approver2 : Report Date : 03/23/2017 11:54:04 My Comment : HISTORY: Cough COMPARISON: Chest x-ray performed 03/12/17 TECHNIQUE: Chest PA and lateral FINDINGS: LUNGS: Bilateral hilar prominence. Mild bibasilar atelectasis. Please note that chest x-ray has limited sensitivity for the detection of pulmonary masses. PLEURA: No significant pleural effusion identified. No definite pneumothorax . CARDIOVASCULAR: Cardiomegaly. OSSEOUS STRUCTURES: Mild degenerative changes. VISUALIZED UPPER ABDOMEN: Unremarkable. OTHER FINDINGS: None. IMPRESSION: Cardiomegaly. Bilateral hilar prominence. Mild bibasilar atelectasis. Scribe Attestation: Documented by Mohit Alvarez, acting as a scribe for Dr. Mini Villar MD. Provider Scribe Attestation: All medical record entries made by the Scribe were at my direction and personally dictated by me. I have reviewed the chart and agree that the record accurately reflects my personal performance of the history, physical exam, medical decision making, and the department course for this patient. I have also personally directed, reviewed, and agree with the discharge instructions and disposition. Disposition - Clinical Impression Clinical Impression: URI (upper respiratory infection) - Patient ED Disposition Is Patient to be Admitted: No - Disposition Disposition: Routine/Home Disposition Time: 12:12 Condition: STABLE Additional Instructions: FOLLOW-UP WITH PMD WITHIN 2 DAYS FOR REEVALUATION. Prescriptions: Albuterol HFA [Ventolin HFA 90 mcg/actuation (8 g)] 2 puff IH [id number] PRN #1 bottle PRN Reason: Shortness Of Breath Loratadine [Claritin] 10 mg PO DAILY PRN #10 tab PRN Reason: Allergy Symptoms Instructions: Upper Respiratory Infection (ED) Forms: [facility] (Georgian)
--- NOTE | 2017-03-23 11:55 | RAD ---
HISTORY: Cough COMPARISON: Chest x-ray performed 03/12/17 TECHNIQUE: Chest PA and lateral FINDINGS: LUNGS: Bilateral hilar prominence. Mild bibasilar atelectasis. Please note that chest x-ray has limited sensitivity for the detection of pulmonary masses. PLEURA: No significant pleural effusion identified. No definite pneumothorax . CARDIOVASCULAR: Cardiomegaly. OSSEOUS STRUCTURES: Mild degenerative changes. VISUALIZED UPPER ABDOMEN: Unremarkable. OTHER FINDINGS: None. IMPRESSION: Cardiomegaly. Bilateral hilar prominence. Mild bibasilar atelectasis.
[2017-03-23 12:32] VITALS: BP 128/78; PULSE 80; RESP 18; TEMP 98
== END 2017-03-23 12:32 | disposition home or self-care (01) ==
LOC: H.ER 10:24
DX: J06.9 Acute upper respiratory infection, unspecified (principal); E11.9 Type 2 diabetes mellitus without complications; Z79.4 Long term (current) use of insulin; E78.00 Pure hypercholesterolemia, unspecified; F41.9 Anxiety disorder, unspecified; I10 Essential (primary) hypertension; J44.9 Chronic obstructive pulmonary disease, unspecified

== ENCOUNTER 2017-03-30 11:12 | Emergency (ER) | payer OTHER ==
[2017-03-30 11:12] VITALS: BMI 34.4
[2017-03-30 11:46] VITALS: BP 143/78; PULSE 84; RESP 16; TEMP 97.9; O2SAT 97
--- NOTE | 2017-03-30 13:03 | ED PDOC ---
HPI: CCC, URI, Sore Throat Time Seen by Provider: 03/30/17 11:51 Chief Complaint (Nursing): ENT Problem Chief Complaint (Provider): Sinus Pressure, Congestion, Headache History Per: Patient History/Exam Limitations: no limitations Onset/Duration Of Symptoms: Days (x 4-5) Current Symptoms Are (Timing): Still Present Additional Complaint(s): Adonis is a 62 y/o male who presents to the ED complaining of sinus pressure, congestion, and headache that started 4-5 days ago. Patient also complains of body aches, chills, and sore throat, but denies fever. He was seen here in the ER a few days ago and had flu and strep tests done, which were both negative. Afterwards, he continued taking tylenol and motrin with no relief. He denies chest pain, shortness of breath, vomiting, or diarrhea. Patient also mentioned he has had problems controlling his sugar, stating it was low in the morning but once he ate it was better. He takes insulin and metformin PMD: None Provided Past Medical History Reviewed: Historical Data, Nursing Documentation, Vital Signs Vital Signs: Last Vital Signs Temp 97.9 F 03/30/17 11:44 Pulse 84 03/30/17 11:44 Resp 16 03/30/17 11:44 BP 143/78 03/30/17 11:44 Pulse Ox 97 03/30/17 14:30 - Medical History PMH: Anxiety, Asthma, Bronchitis, COPD, Diabetes, HTN, Hypercholesterolemia Denies: Hepatitis, HIV, Chronic Kidney Disease, Seizures, Sexually Transmitted Disease - Surgical History Surgical History: Appendectomy - Family History Family History: States: Unknown Family Hx - Social History Ex-Smoker (has not smoked in the last 12 months): Yes Alcohol: None - Immunization History Hx Tetanus Toxoid Vaccination: No Hx Influenza Vaccination: No Hx Pneumococcal Vaccination: No - Home Medications Home Medications: Ambulatory Orders Medication Instructions Recorded Clonazepam [Klonopin] 0.5 mg PO TID 02/06/17 Ibuprofen [Motrin Tab] 600 mg PO BID PRN 02/06/17 Atorvastatin Calcium [Lipitor] 80 mg PO DAILY #30 tablet 02/07/17 DULoxetine [Cymbalta] 20 mg PO DAILY #30 ecc 02/07/17 Insulin Glargine,Hum.rec.anlog 44 units SC BID #30 insuln.pen 02/07/17 [Lantus Solostar] Lisinopril [Zestril] 20 mg PO DAILY #30 tab 02/07/17 Metformin HCl [Glucophage] 1,000 mg PO BID #60 tablet 02/07/17 Omeprazole 20 mg PO DAILY #60 tablet.dr 02/07/17 amLODIPine [Norvasc] 5 mg PO DAILY #30 tab 02/07/17 Fluticasone/Salmeterol 250/50 1 puff IH Q12 #1 puff 02/15/17 [Advair Diskus 250/50] Albuterol 0.083% [Albuterol 0.083% 2.5 mg IH QID PRN #20 02/19/17 Inhal [place] (2.5 mg/3 ml) UD] Albuterol Sulfate [Proair Hfa] 0.09 mg IH Q6H PRN #2 inh 03/12/17 Insulin Aspart [Novolog Flexpen] 20 units SC TID 03/12/17 predniSONE [predniSONE Tab] 20 mg PO BID 5 Days tab 03/12/17 Albuterol HFA [Ventolin HFA 90 2 puff IH [id number] PRN #1 bottle 03/23/17 mcg/actuation (8 g)] Loratadine [Claritin] 10 mg PO DAILY PRN #10 tab 03/23/17 Amoxicillin/Clavulanate [Augmentin 1 tab PO BID #20 tab 03/30/17 875 MG-125 MG] Pseudoephedrine HCl [Sudafed] 30 mg PO BID PRN #20 tablet 03/30/17 - Allergies Allergies/Adverse Reactions: Allergies Allergy/AdvReac Type Severity Reaction Status Date / Time No Known Allergies Allergy Verified 02/08/17 21:40 Review of Systems ROS Statement: Except As Marked, All Systems Reviewed And Found Negative Constitutional: Positive for: Chills, Other (body aches). Negative for: Fever ENT: Positive for: Nose Discharge, Nose Congestion, Throat Pain Cardiovascular: Negative for: Chest Pain Respiratory: Negative for: Shortness of Breath Gastrointestinal: Negative for: Vomiting, Diarrhea Neurological: Positive for: Headache (front sinus) Physical Exam - Reviewed Nursing Documentation Reviewed: Yes Vital Signs Reviewed: Yes - Physical Exam Appears: Positive for: No Acute Distress Head Exam: Positive for: ATRAUMATIC, NORMOCEPHALIC Skin: Positive for: Normal Color, Warm, Dry Eye Exam: Positive for: EOMI, Normal appearance, PERRL ENT: Positive for: Normal ENT Inspection, Sinus Pain/Drainage (facial tenderness ) Neck: Positive for: Normal, Painless ROM, Supple Cardiovascular/Chest: Positive for: Regular Rate, Rhythm. Negative for: Murmur Respiratory: Positive for: Normal Breath Sounds. Negative for: Respiratory Distress Gastrointestinal/Abdominal: Positive for: Normal Exam, Soft. Negative for: Tenderness Back: Positive for: Normal Inspection. Negative for: L CVA Tenderness, R CVA Tenderness, Vertebral Tenderness Extremity: Positive for: Normal ROM. Negative for: Pedal Edema, Deformity Neurologic/Psych: Positive for: Alert, Oriented. Negative for: Motor/Sensory Deficits - ECG O2 Sat by Pulse Oximetry: 97 (RA) Pulse Ox Interpretation: Normal Medical Decision Making Medical Decision Making: Time: 12:43 Initial Impression: Sinus Headache, Congestion, Mild Hyperglycemia; Sinusitis rule out influenza Initial Plan: --CT Sinuses w/o Contrast --Flu Swab --Accucheck Flu Swab: Negative Glucose: 282 CT Sinuses w/o Contrast FINDINGS: FRONTAL SINUSES: The frontal sinuses are well developed. There is complete soft tissue opacification of the frontal sinuses. ETHMOID SINUSES: The ethmoid air cells are well developed. There is abnormal soft tissue opacifying the right anterior ethmoid air cells. The remaining ethmoid air cells are well aerated. SPHENOID SINUSES: The sphenoid sinus is well developed without mucosal thickening or fluid. MAXILLARY SINUSES: The maxillary sinuses are well developed. There is complete soft tissue opacification of the right maxillary sinus. There is minimal mucosal thickening in the left maxillary sinus. SINUS DRAINAGE: Obstruction of the right ostiomeatal complex mild narrowing of the left ostiomeatal complex. Obstruction of the right frontoethmoid recess. The left fronto ethmoid and sphenoethmoid recesses are clear. NASAL SEPTUM: The nasal septum is deviated to the right with a mid septal bony spur which indents the right inferior turbinate. No destructive lesion. MASS: None. SKULL BASE: Unremarkable. TEMPORAL BONES: Middle ears and mastoid grossly unremarkable. OTHER FINDINGS: None. IMPRESSION: 1. Severe chronic frontal, right maxillary and right anterior ethmoid sinusitis with obstruction of the right ostiomeatal complex. 2. Nasal septum deviated to the right with a mid septal bony spur which indents the right inferior turbinate. Time: 14:28 --Patient is stable for discharge with a diagnosis of sinusitis confirmed by CT Scribe Attestation: Documented by Mohit Alvarez, acting as a scribe for Dr. Patricia Francois MD. Provider Scribe Attestation: All medical record entries made by the Scribe were at my direction and personally dictated by me. I have reviewed the chart and agree that the record accurately reflects my personal performance of the history, physical exam, medical decision making, and the department course for this patient. I have also personally directed, reviewed, and agree with the discharge instructions and disposition. Disposition - Clinical Impression Clinical Impression: Sinusitis, Diabetes mellitus, Hyperglycemia - Patient ED Disposition Is Patient to be Admitted: No Doctor Will See Patient In The: Office Counseled Patient/Family Regarding: Studies Performed, Diagnosis, Need For Followup, Rx Given - Disposition Referrals: [facility] [Outside] Disposition: Routine/Home Disposition Time: 14:28 Condition: GOOD Additional Instructions: Follow up with your PCP in 2-3 days. Take your medications as instructed. Prescriptions: Amoxicillin/Clavulanate [Augmentin 875 MG-125 MG] 1 tab PO BID #20 tab Pseudoephedrine HCl [Sudafed] 30 mg PO BID PRN #20 tablet PRN Reason: Sinus Symptoms Instructions: Sinusitis (ED)
--- NOTE | 2017-03-30 13:57 | CT ---
PROCEDURE: CT SINUSES WITHOUT CONTRAST HISTORY: Sinus, headache COMPARISON: None TECHNIQUE: Contiguous axial CT images of the paranasal sinuses were obtained. Coronal and sagittal reformats were generated. Radiation dose: Total exam DLP = 674.68 MGy-cm. This CT exam was performed using one or more of the following dose reduction techniques: Automated exposure control, adjustment of the mA and/or kV according to patient size, and/or use of iterative reconstruction technique. FINDINGS: FRONTAL SINUSES: The frontal sinuses are well developed. There is complete soft tissue opacification of the frontal sinuses. ETHMOID SINUSES: The ethmoid air cells are well developed. There is abnormal soft tissue opacifying the right anterior ethmoid air cells. The remaining ethmoid air cells are well aerated. SPHENOID SINUSES: The sphenoid sinus is well developed without mucosal thickening or fluid. MAXILLARY SINUSES: The maxillary sinuses are well developed. There is complete soft tissue opacification of the right maxillary sinus. There is minimal mucosal thickening in the left maxillary sinus. SINUS DRAINAGE: Obstruction of the right ostiomeatal complex mild narrowing of the left ostiomeatal complex. Obstruction of the right frontoethmoid recess. The left fronto ethmoid and sphenoethmoid recesses are clear. NASAL SEPTUM: The nasal septum is deviated to the right with a mid septal bony spur which indents the right inferior turbinate. No destructive lesion. MASS: None. SKULL BASE: Unremarkable. TEMPORAL BONES: Middle ears and mastoid grossly unremarkable. OTHER FINDINGS: None. IMPRESSION: 1. Severe chronic frontal, right maxillary and right anterior ethmoid sinusitis with obstruction of the right ostiomeatal complex. 2. Nasal septum deviated to the right with a mid septal bony spur which indents the right inferior turbinate.
== END 2017-03-30 14:50 | disposition home or self-care (01) ==
LOC: H.ER 11:12
DX: J32.2 Chronic ethmoidal sinusitis (principal); E11.65 Type 2 diabetes mellitus with hyperglycemia; Z79.4 Long term (current) use of insulin; E78.00 Pure hypercholesterolemia, unspecified; F41.9 Anxiety disorder, unspecified; I10 Essential (primary) hypertension; J44.9 Chronic obstructive pulmonary disease, unspecified

== ENCOUNTER 2017-03-31 22:33 | Emergency (ER) | payer OTHER ==
[2017-03-31 22:33] VITALS: BMI 34.4
[2017-03-31 22:46] VITALS: RESP 18; O2SAT 100
[2017-03-31 23:25] LABS: BASO # 0.1 K/uL (0.0-0.2); BASO % 1.9 % (0.0-2.0); EOS # 0.1 K/uL (0.0-0.7); EOS % 2.7 % (0.0-4.0); HEMOGLOBIN 13.2 g/dL (12.0-18.0); LYMPH # 1.8 K/uL (1.0-4.3); LYMPH % 35.5 % (20.0-40.0); MEAN CELL VOLUME 87.7 fl (80.0-94.0); MEAN CORPUSCULAR HEMOGLOBIN 28.6 pg (27.0-31.0); MEAN CORPUSCULAR HGB CONC 32.6 g/dL (33.0-37.0); MONO # 0.7 K/uL (0.0-0.8); MONO % 13.2 % (0.0-10.0); NEUT # 2.4 K/uL (1.8-7.0); NEUT % 46.7 % (50.0-75.0); NRBC % 0.1 % (0.0-0.0); RBC 4.62 Mil/uL (4.40-5.90); RED CELL DISTRIBUTION WIDTH 15.3 % (11.5-14.5)
[2017-03-31 23:34] LABS: BLOOD UREA NITROGEN 19 mg/dl (9-20); CALCIUM 9.5 mg/dL (8.4-10.2); GFR AFRICAN-AMERICAN > 60; GFR NON-AFRICAN AMERICAN > 60
[2017-03-31] MEDS ORDERED: Albuterol-Ipratrop 3 mg / 0.5 (3 ml) UD INH STA (23:58)
--- NOTE | 2017-04-01 00:04 | ED PDOC ---
HPI: SOB/CHF/COPD Time Seen by Provider: 03/31/17 22:57 Chief Complaint (Nursing): Shortness Of Breath Chief Complaint (Provider): Shortness of Breath History Per: Patient History/Exam Limitations: no limitations Onset/Duration Of Symptoms: Other (x2 weeks) Current Symptoms Are (Timing): Still Present Recently: Seen In ED Additional Complaint(s): 62 year old male re-presents to ED with complaints of continuous cough, congestion, SOB, and sinus pressure x2 weeks and has a past medical history of HTN, hypercholesterolemia, diabetes mellitus, and COPD. Patient has presented to ED x3 times in the last week with similar complaints and had 3 negative flu tests as well as a CT of his sinuses (impression: chronic sinusitis). Patient notes he is currently taking Amoxicillin and cough medicine with minimal relief. PCP: in [place] Past Medical History Reviewed: Historical Data, Nursing Documentation, Vital Signs Vital Signs: Last Vital Signs Temp 98.0 F 04/01/17 01:41 Pulse 83 04/01/17 01:41 Resp 18 03/31/17 23:00 BP 128/64 04/01/17 01:41 Pulse Ox 100 04/01/17 03:01 - Medical History PMH: Anxiety, Asthma, Bronchitis, COPD, Diabetes, HTN, Hypercholesterolemia Denies: Hepatitis, HIV, Chronic Kidney Disease, Seizures, Sexually Transmitted Disease - Surgical History Surgical History: Appendectomy - Family History Family History: States: Unknown Family Hx - Social History Alcohol: None Drugs: Denies - Immunization History Hx Tetanus Toxoid Vaccination: No Hx Influenza Vaccination: No Hx Pneumococcal Vaccination: No - Home Medications Home Medications: Ambulatory Orders Medication Instructions Recorded Clonazepam [Klonopin] 0.5 mg PO TID 02/06/17 Ibuprofen [Motrin Tab] 600 mg PO BID PRN 02/06/17 Atorvastatin Calcium [Lipitor] 80 mg PO DAILY #30 tablet 02/07/17 DULoxetine [Cymbalta] 20 mg PO DAILY #30 ecc 02/07/17 Insulin Glargine,Hum.rec.anlog 44 units SC BID #30 insuln.pen 02/07/17 [Lantus Solostar] Lisinopril [Zestril] 20 mg PO DAILY #30 tab 02/07/17 Metformin HCl [Glucophage] 1,000 mg PO BID #60 tablet 12/25/17 Omeprazole 20 mg PO DAILY #60 tablet. 02/07/17 amLODIPine [Norvasc] 5 mg PO DAILY #30 tab 02/07/17 Fluticasone/Salmeterol 250/50 1 puff IH Q12 #1 puff 02/15/17 [Advair Diskus 250/50] Albuterol 0.083% [Albuterol 0.083% 2.5 mg IH QID PRN #20 02/19/17 Inhal Kaykay (2.5 mg/3 ml) UD] Albuterol Sulfate [Proair Hfa] 0.09 mg IH Q6H PRN #2 inh 03/12/17 Insulin Aspart [Novolog Flexpen] 20 units SC TID 03/12/17 predniSONE [predniSONE Tab] 20 mg PO BID 5 Days tab 03/12/17 Albuterol HFA [Ventolin HFA 90 2 puff IH [id number] PRN #1 bottle 03/23/17 mcg/actuation (8 g)] Loratadine [Claritin] 10 mg PO DAILY PRN #10 tab 03/23/17 Amoxicillin/Clavulanate [Augmentin 1 tab PO BID #20 tab 03/30/17 875 MG-125 MG] Pseudoephedrine HCl [Sudafed] 30 mg PO BID PRN #20 tablet 03/30/17 predniSONE [predniSONE Tab] 20 mg PO DAILY #3 tab 04/01/17 - Allergies Allergies/Adverse Reactions: Allergies Allergy/AdvReac Type Severity Reaction Status Date / Time No Known Allergies Allergy Verified 02/08/17 21:40 Curb-65 Severity Score - CURB-65 Severity Score Confusion: No Respiratory Rate greater than/equal to 30: No Systolic BP <90 or Diastolic BP less than/equal 60mmHg: No Age >64: No Curb-65 Score: 0 Percentage 30-day mortality: 0.6% Wells Criteria for PE - Wells Criteria for Pulmonary Embolism Clinical Signs and Symptoms of DVT: No Heart Rate >100: No Previous, objectively diagnosed PE or DVT: No Hemoptysis: No Malignancy w/treatment within 6 months, or palliative: No Total Score: 0 Review of Systems ROS Statement: Except As Marked, All Systems Reviewed And Found Negative ENT: Positive for: Nose Congestion, Other ((+) sinus pressure) Respiratory: Positive for: Cough, Shortness of Breath (mild) Physical Exam - Reviewed Nursing Documentation Reviewed: Yes Vital Signs Reviewed: Yes - Physical Exam Appears: Positive for: Non-toxic, No Acute Distress Skin: Positive for: Normal Color, Warm, Dry Eye Exam: Positive for: Normal appearance ENT: Positive for: Pharyngeal Erythema. Negative for: Normal ENT Inspection Neck: Positive for: Normal Cardiovascular/Chest: Positive for: Regular Rate, Rhythm. Negative for: Murmur Respiratory: Positive for: Decreased Breath Sounds (mildly diminished breath sounds). Negative for: Respiratory Distress Gastrointestinal/Abdominal: Positive for: Normal Exam, Soft. Negative for: Tenderness Extremity: Positive for: Normal ROM. Negative for: Deformity Neurologic/Psych: Positive for: Alert, Oriented. Negative for: Motor/Sensory Deficits - Laboratory Results Result Diagrams: 03/31/17 23:22 03/31/17 23:22 - ECG O2 Sat by Pulse Oximetry: 100 (RA) Pulse Ox Interpretation: Normal Medical Decision Making Medical Decision Makin Initial impression: URI and chronic sinusitis Initial plan: * EKG * Labs * Trop I * CXR * Duonebs 3mL INH * Toradol 15mg IV * Peak flow pre/post Tx * Re-eval [address] Palma pending work up. Scribe Attestation: Documented by Valeria Krishna acting as a scribe for Kun Ortiz III, DO. DO Scribe Attestation: All medical record entries made by the Scribe were at my direction and personally dictated by me. I have reviewed the chart and agree that the record accurately reflects my personal performance of the history, physical exam, medical decision making, and the department course for this patient. I have also personally directed, reviewed, and agree with the discharge instructions and disposition. Disposition - Clinical Impression Clinical Impression: URI (upper respiratory infection), Sinusitis - Patient ED Disposition Is Patient to be Admitted: No Counseled Patient/Family Regarding: Studies Performed - Disposition Disposition: Transfer of Care Disposition Time: 00:00 Condition: STABLE Prescriptions: predniSONE [predniSONE Tab] 20 mg PO DAILY #3 tab Instructions: Sinusitis in Adults Forms: [employer] ([place]) Patient Signed Over To: Riki Palma Handoff Comments: pending ED work up
[2017-04-01] MEDS ORDERED: Albuterol-Ipratrop 3 mg / 0.5 (3 ml) UD ONE (00:36)
[2017-04-01 01:42] VITALS: BP 128/64; PULSE 83; TEMP 98
--- NOTE | 2017-04-01 01:42 | ED PDOC ---
- Laboratory Results Result Diagrams: 03/31/17 23:22 03/31/17 23:22 - ECG O2 Sat by Pulse Oximetry: 100 (RA) Pulse Ox Interpretation: Normal Medical Decision Making Medical Decision Makin Pt. signed out to me by Dr. Ortiz 130 Pt. asleep, comfortable upon waking up, states he feels better, will followup with his doctor in [place]. Advised to take prednisone for 3 days for sinusitis. Disposition - Clinical Impression Clinical Impression: URI (upper respiratory infection), Sinusitis - POA Present On Arrival: None - Disposition Disposition: Routine/Home Disposition Time: 01:41 Condition: STABLE Prescriptions: predniSONE [predniSONE Tab] 20 mg PO DAILY #3 tab Instructions: Sinusitis in Adults Forms: [employer] (Italian)
--- NOTE | 2017-04-01 08:58 | RAD ---
HISTORY: chest pain/ r/o infiltrate COMPARISON: Chest radiograph dated 03/23/2017 TECHNIQUE: Chest PA and lateral FINDINGS: LUNGS: Left basilar atelectasis versus infiltrate redemonstrated. PLEURA: No significant pleural effusion identified. No pneumothorax apparent. CARDIOVASCULAR: Atherosclerotic aortic calcifications. Cardiomediastinal silhouette unchanged. OSSEOUS STRUCTURES: Unchanged. VISUALIZED UPPER ABDOMEN: Normal. OTHER FINDINGS: None. IMPRESSION: Left basilar atelectasis versus infiltrate redemonstrated.
--- NOTE | 2017-04-01 19:04 | CARD ---
APPROVED REPORT EKG Measurement Heart [id number] <Conclusion> Normal sinus rhythm
== END 2017-04-01 02:15 | disposition home or self-care (01) ==
LOC: H.ER 22:33
DX: J32.9 Chronic sinusitis, unspecified (principal); J06.9 Acute upper respiratory infection, unspecified
CPT/HCPCS: 71046; 80048; 84484; 85025; 93005; 94150; 94640; 96374; 99284; J1885